=== PATIENT | male | born 1985 | race Caucasian/White ===

== ENCOUNTER 2020-09-19 11:31 | Outpatient (REF) | payer OTHER, SELFPAY | END 2020-09-19 11:32 | disposition home or self-care (01) | LOC: HO.LAB 11:31 | PROVIDERS: Visit Provider Internal Medicine | DX: Z20.828 Contact with and (suspected) exposure to other viral communicable diseases (principal) | CPT/HCPCS: C9803; U0003 ==

== ENCOUNTER 2024-03-31 13:14 | Outpatient (AMB) | payer OTHER, SELFPAY ==
--- NOTE | 2024-03-31 14:05 | MHC.OFFWIV ---
Intake Vital Signs 03/31/24 14:06 Height 5 ft 9 in Weight 191 lb BMI 28.2 BP 120/78 Blood Pressure Location Lt brachial Position Sitting Pulse 118 H Pulse Source Pulse Oximeter Temp 97.3 F Temp Source Temporal Artery Scan Pulse Oximetry (%) 98 Intake Visit Reasons: EP fever chills short of breath fatigue Intake Note: pt is here today for fever cgills short of breath started saturday Patient Tobacco Use Status: Current everyday Tobacco user Allergies No Known Allergies Allergy (Verified 03/31/24 15:08) sertraline Adverse Reaction (Unknown, Verified 03/31/24 15:08) sexual side effects Medication List - Last Reconciled 03/31/24 by Cyrus Roche MD azithromycin take 500 mg today (day 1), then 250 mg for 4 days (days 2-5) PO Do you need a note to return to daycare/school/sports/work: Yes HPI EP fever chills short of breath fatigue HPI Details 39-year-old male presents to the office for a sick visit. Patient reports he abruptly started having symptoms of headache, fever and chills in the past 48 hours. Lower back pain with nausea. Patient lives alone. He admits to consume large quantities of alcohol and smokes 2 packs a month. 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 No burning sensation on urination. PFSH Social History Patient Tobacco Use Status: Current everyday Tobacco user Physical Exam Vital Signs: Last Vital Signs Temp 97.3 F 03/31/24 14:06 Pulse 118 H 03/31/24 14:06 BP 120/78 03/31/24 14:06 Pulse Ox 98 03/31/24 14:06 BMI result Body Mass Index 28.2 Const General: cooperative and healthy appearing Nutritional Appearance: well nourished Orientation/consciousness: patient oriented x3 Limitations: no limitations HEENT Head: Yes normal to inspection Eyes General: appearance normal, both eyes and all related structures Neck Neck: Yes normal visual inspection Chest Chest palpation & inspection: normal palpation of entire chest wall Resp Effort & Inspection: normal respiratory effort Neuro General: patient oriented x3 Assessment & Plan Assessment & Plan (1) Febrile illness: Code(s): R50.9 - Fever, unspecified Plan: Blood work has been drawn. Will call with the results. Viral swab has been drawn will call with results. Chest x-ray images were reviewed by me. No infiltrate seen. Antibiotics called in. Orders: Orders XR chest 2V Today R05.9 - Cough, unspecified Basic Metabolic Panel Today K75.9 - Inflammatory liver disease, unspecified Liver Panel Today K75.9 - Inflammatory liver disease, unspecified Erythrocyte Sedimentation Rate Today K75.9 - Inflammatory liver disease, unspecified Complete Blood Count no Diff Today K75.9 - Inflammatory liver disease, unspecified Thyroid Stimulating Hormone Today K75.9 - Inflammatory liver disease, unspecified Medications: New azithromycin take 500 mg today (day 1), then 250 mg for 4 days (days 2-5) PO 6 tabs 0RF Coding Level of Care Code New Pt Level 4 (71758) Diagnoses Febrile illness R50.9
[2024-03-31 14:06] VITALS: BP 120/78; PULSE 118; TEMP 36.3; O2SAT 98; BMI 28.2
== END 2024-03-31 15:22 | disposition home or self-care (01) ==
PROVIDERS: Visit Provider Internal Medicine
DX: R50.9 Fever, unspecified (principal)
CPT/HCPCS: 99204

== ENCOUNTER 2024-03-31 14:42 | Outpatient (REF) | payer OTHER, SELFPAY ==
--- NOTE | ~2024-03-31 | XR_ITS ---
EXAMINATION: XR CHEST CLINICAL INFORMATION: Cough. Unspecified COMPARISON: None available. TECHNIQUE: 2 views of the chest were obtained. FINDINGS: Lungs clear. No pleural effusions. Heart and pulmonary vessels are normal. XR/XR chest 2V IMPRESSION: Unremarkable examination.
[2024-03-31 16:07] LABS: Hematocrit 50.8 % (42.0-52.0); Hemoglobin 17.5 g/dl (14.0-18.0); Mean Corpuscular HGB Conc 34.4 g/dl (31.0-36.0); Mean Corpuscular Hemoglobin 34.3 pg (27.0-33.0); Mean Corpuscular Volume 99.6 fL (80.0-98.0); Mean Platelet Volume 9.6 fL (9.4-12.4); Platelet Count 184 X10*3/uL (160-400); Red Cell Distribution Width 13.3 % (11.0-16.0); White Blood Count 8.6 X10*3/uL (4.8-10.8)
[2024-03-31 16:36] LABS: Alanine Aminotransferase 107 U/L (0-40); Albumin Level 4.3 g/dL (3.5-5.0); Alkaline Phosphatase 90 U/L (39-117); Anion Gap 15 (12-20); Aspartate Amino Transferase 81 U/L (5-37); Bilirubin Direct 0.4 mg/dL (0.0-0.5); Bilirubin Total 0.9 mg/dL (0.0-1.0); Blood Urea Nitrogen 17 mg/dL (9-16); Calcium 9.9 mg/dL (8.4-10.2); Carbon Dioxide 25 mmol/L (22-29); Chloride 100 mmol/L (96-108); Estimated Glomerular Filt Rate > 60; Glucose Random 117 mg/dL (60-115); Potassium 4.6 mmol/L (3.3-5.1); Sodium 135 mmol/L (135-145); Total Protein 8.6 g/dL (6.5-8.0)
[2024-03-31 16:41] LABS: Influenza A PCR NEGATIVE (Negative); Influenza B PCR NEGATIVE (Negative); Resp Syncy Virus RNA Qual PCR NEGATIVE (Negative); SARS COV2 PCR INHOUSE NEGATIVE (Negative)
[2024-03-31 16:41] LABS: Thyroid Stimulating Hormone 2.19 uIU/mL (0.32-4.0)
[2024-03-31 16:53] LABS: Erythrocyte Sedimentation Rate 47 MM/HR (0-15)
== END 2024-03-31 14:43 | disposition home or self-care (01) ==
LOC: HO.HMGCX 14:42
PROVIDERS: Visit Provider Internal Medicine
DX: R05.9 Cough, unspecified (principal); K75.9 Inflammatory liver disease, unspecified; R43.9 Unspecified disturbances of smell and taste
CPT/HCPCS: 0241U; 36415; 71046; 80048; 80076; 84443; 85027; 85652

== ENCOUNTER 2024-04-01 03:57 | Emergency (ER) | payer OTHER, SELFPAY ==
[2024-04-01] VITALS (9 sets, daily range): BP systolic 113–148; BP diastolic 79–92; PULSE 86–145; RESP 20–25; TEMP 36.8–39.5; O2SAT 96–97; BMI 28.1
--- NOTE | 2024-04-01 | ECG_ITS ---
Test Reason : TACHY Blood Pressure : / mmHG Vent. Rate : 143 BPM Atrial Rate : 143 BPM P-R Int : 122 ms QRS Dur : 088 ms QT Int : 282 ms P-R-T Axes : 069 137 052 degrees QTc Int : 435 ms Sinus tachycardia Right axis deviation Abnormal ECG When compared with ECG of 14-FEB-2012 07:04, T inversion not seen in lead 3. Referred By: Generic ED Physician Electronically Signed By:MADELEINE SETH
--- NOTE | 2024-04-01 04:12 | PC.NURSE ---
pt from home, a&ox4, respirations even and unlabored. pt reporting high fever, nausea,vomiting and diarrhea since saturday. denies any sick contacts at this time. when pt changing over, pt noted to have red, round spot on the left sided abdomen, pt unsure if bit by a bug. upon arrival pt tachy in 140s. 18G placed in left ac, labs obtained, pt medicated per jan.
[2024-04-01] MEDS: Acetaminophen 325 MG TABLET 650 MG PO (04:21)
[2024-04-01] MEDS: Ibuprofen 600 MG TABLET PO (04:21)
[2024-04-01 04:22] LABS: Basophils Absolute Auto 0.1 X10*3/uL (0.0-0.2); Basophils Percent Auto 0.6 % (0-2); Eosinophils Percent Auto 0.2 % (0-4); Hemoglobin 16.4 g/dl (14.0-18.0); Imm Gran Abs Auto 0.04 X10*3/uL (0.00-0.03); Imm Gran Pct Auto 0.5 % (0.0-0.4); Lymphocytes Absolute Auto 0.8 X10*3/uL (1.2-4.9); Lymphocytes Percent Auto 9.3 % (20-40); MANUAL DIFF FLAG NO; Mean Corpuscular HGB Conc 34.9 g/dl (31.0-36.0); Mean Corpuscular Hemoglobin 34.2 pg (27.0-33.0); Mean Corpuscular Volume 98.1 fL (80.0-98.0); Mean Platelet Volume 9.1 fL (9.4-12.4); Monocytes Absolute Auto 1.1 X10*3/uL (0.1-1.2); Neutrophils Absolute Auto 6.2 x10*3/uL (2.0-8.3); Neutrophils Percent Auto 76.4 % (45-73); Platelet Count 181 X10*3/uL (160-400); Red Blood Count 4.79 X10*6/uL (4.60-5.80); Red Cell Distribution Width 13.2 % (11.0-16.0); White Blood Count 8.2 X10*3/uL (4.8-10.8)
[2024-04-01] MEDS: Doxycycline Monohydrate 100 MG CAPSULE 200 MG PO (04:27)
[2024-04-01] MEDS: cefTRIAXone sodium 1 GM in 0.9 % Sodium Chloride 50 ML IV ×2 (04:27→05:37)
[2024-04-01] MEDS: 0.9 % Sodium Chloride 1,000 ML 999 ML IV (04:30)
[2024-04-01 04:35] LABS: Alanine Aminotransferase 105 U/L (0-40); Albumin Level 4.1 g/dL (3.5-5.0); Alkaline Phosphatase 90 U/L (39-117); Anion Gap 16 (12-20); Aspartate Amino Transferase 79 U/L (5-37); Bilirubin Total 0.8 mg/dL (0.0-1.0); Blood Urea Nitrogen 16 mg/dL (9-16); Calcium 9.3 mg/dL (8.4-10.2); Carbon Dioxide 23 mmol/L (22-29); Chloride 100 mmol/L (96-108); Creatinine Clr Calc Pharmacy 83.9; Estimated Glomerular Filt Rate > 60; Glucose Random 120 mg/dL (60-115); Potassium 3.8 mmol/L (3.3-5.1); Sodium 135 mmol/L (135-145); Total Protein 8.1 g/dL (6.5-8.0)
[2024-04-01 04:36] LABS: Lactic Acid 1.2 mmol/L (0.5-2.0)
[2024-04-01 04:42] LABS: Troponin-I High Sensitivity 8.3 ng/L (<3.5-35.0)
--- NOTE | 2024-04-01 04:59 | ED_ITS ---
HPI - Fever General Chief Complaint: Fever Stated Complaint: Fever Time Seen by Provider: 04/01/24 04:11 Source: patient Mode of arrival: ambulatory Limitations: no limitations History of Present Illness ED Provider: georges RANDHAWA Narrative: Patient otherwise healthy been having fever body aches joint pain for last 4 days slightly nauseated no cough no shortness a breath patient was seen by PCP and had the blood workup done earlier which showed elevated sed rate with normal WBC count. Patient denied any tick bite Related Data Previous Rx's ?Medication ?Instructions ?Recorded azithromycin 250 mg tablet See Rx Instructions PO .COMPLEX #6 03/31/24 tabs doxycycline hyclate 100 mg tablet 100 mg PO BID #42 tabs 04/01/24 ibuprofen 600 mg tablet 600 mg PO Q6H PRN fever or pain 04/01/24 #30 tabs Allergies Allergy/AdvReac Type Severity Reaction Status Date / Time No Known Allergies Allergy Verified 04/01/24 04:08 sertraline AdvReac Unknown sexual Verified 03/31/24 15:08 side effects Review of Systems 2 Review of Systems: Yes all other systems are reviewed and are negative [facility] Social History Social History Patient Tobacco Use Status: Current everyday Tobacco user Smoked in Last 30 Days: No Use of substances other than those prescribed or required for medical reasons: No Advance Directives: No Advance Directives Information Provided: No Do you have a plan to hurt others: No Plan Physical Exam 2 Vital Signs: Vital Signs: Last Vital Signs Temp 99.5 F 04/01/24 06:34 Pulse 99 04/01/24 06:34 Resp 20 04/01/24 06:34 BP 120/81 04/01/24 06:34 Pulse Ox 97 04/01/24 06:34 O2 Del Method Room Air 04/01/24 06:34 BMI result Body Mass Index 28.1 Appearance: Alert. Oriented X3. No acute distress. Eyes: No pallor or icterus ENT: Pharynx normal. Oral Mucosa moist Neck: Normal inspection. Neck supple. CVS: Normal heart rate and rhythm. Pulses normal. Respiratory: No respiratory distress. Equal air entry bilateral, no wheezing/rales/rhonchi Abdomen: Soft and nontender. Bowel sounds are present, no mass palpable, no CVA tenderness Skin: Skin warm and dry. Bull's eye rash on the left trunk area Extremities: No lower extremity edema. No calf tenderness Neuro: Oriented X 3. No motor deficit. Medications Administered Discontinued Medications Generic Name Dose Route Start Last Admin Trade Name Pratima PRN Reason Stop Dose Admin Acetaminophen 650 mg 04/01/24 04:13 04/01/24 04:21 Acetaminophen 325 Mg Tablet PO 04/01/24 04:14 650 mg ONCE ONE Administration Doxycycline Monohydrate 200 mg 04/01/24 04:13 04/01/24 04:27 Doxycycline Monohydrate 100 Mg Capsule PO 04/01/24 04:14 200 mg ONCE ONE Administration Ceftriaxone Sodium 1 gm/ 50 mls @ 100 mls/hr 04/01/24 04:13 04/01/24 04:57 Sodium Chloride IV 04/01/24 04:42 Infused ONCE ONE Infusion Sodium Chloride 1,000 mls @ 999 mls/hr 04/01/24 04:22 04/01/24 05:31 Ns IV 04/01/24 05:22 Infused .Q1H1M ONE Infusion Ceftriaxone Sodium 1 gm/ 50 mls @ 100 mls/hr 04/01/24 05:18 04/01/24 06:07 Sodium Chloride IV 04/01/24 05:47 Infused ONCE ONE Infusion Ibuprofen 600 mg 04/01/24 04:13 04/01/24 04:21 Ibuprofen 600 Mg Tablet PO 04/01/24 04:14 600 mg ONCE ONE Administration Medical Decision Making Medical Decision Making [facility] Narrative: Patient with fever with erythema marginatum rash suggestive of Lyme disease pending labs discharge patient home on doxycycline will do anaplasmosis panel also Differential Diagnosis Differential Diagnoses: The differential diagnosis associated with the presentation includes Fever/Lyme disease Lab Data [facility] Lab Attestation statement: I reviewed the patient's lab results. 04/01/24 04:12 04/01/24 04:12 Labs: Lab Results 04/01/24 04/01/24 04/01/24 Range/Units 04:12 04:32 05:14 WBC 8.2 (4.8-10.8) X10*3/uL RBC 4.79 (4.60-5.80) X10*6/uL Hgb 16.4 (14.0-18.0) g/dl Hct 47.0 (42.0-52.0) % MCV 98.1 H (80.0-98.0) fL MCH 34.2 H (27.0-33.0) pg MCHC 34.9 (31.0-36.0) g/dl RDW 13.2 (11.0-16.0) % Plt Count 181 (160-400) X10*3/uL MPV 9.1 L (9.4-12.4) fL Immature Gran % (Auto) 0.5 H (0.0-0.4) % Neut % (Auto) 76.4 H (45-73) % Lymph % (Auto) 9.3 L (20-40) % Fannin % (Auto) 13.0 H (2-11) % Eos % (Auto) 0.2 (0-4) % Baso % (Auto) 0.6 (0-2) % Lymph # (Auto) 0.8 L (1.2-4.9) X10*3/uL Fannin # (Auto) 1.1 (0.1-1.2) X10*3/uL Eos # (Auto) 0.0 (0.0-0.4) X10*3/uL Baso # (Auto) 0.1 (0.0-0.2) X10*3/uL Abs Immat Gran (auto) 0.04 H (0.00-0.03) X10*3/uL Absolute Neuts (auto) 6.2 (2.0-8.3) x10*3/uL Absolute Nucleated RBC 0.000 (0.0-0.012) X10*3/uL Nucleated RBC % (auto) 0.0 (0.0-0.2) /100WBC Hold Purple Top SEE NOTE Sodium 135 (135-145) mmol/L Potassium 3.8 (3.3-5.1) mmol/L Chloride 100 (96-108) mmol/L Carbon Dioxide 23 (22-29) mmol/L Anion Gap 16 (12-20) BUN 16 (9-16) mg/dL Creatinine 1.26 (0.5-1.4) mg/dL Estim Creat Clear Calc 83.9 Estimated GFR > 60 Random Glucose 120 H (60-115) mg/dL Lactic Acid 1.2 (0.5-2.0) mmol/L Calcium 9.3 D (8.4-10.2) mg/dL Total Bilirubin 0.8 (0.0-1.0) mg/dL AST 79 H (5-37) U/L ALT 105 H (0-40) U/L Alkaline Phosphatase 90 (39-117) U/L Troponin I High Sens 8.3 (<3.5-35.0) ng/L Total Protein 8.1 H (6.5-8.0) g/dL Albumin 4.1 (3.5-5.0) g/dL Influenza Type A (PCR) NEGATIVE (Negative) Influenza Type B (PCR) NEGATIVE (Negative) RSV RNA Qual (PCR) NEGATIVE (Negative) SARS-CoV-2 RNA (RT-PCR) NEGATIVE (Negative) S. pyogenes GrpA BERENICE Negative (Negative) Discharge Plan Discharge Clinical Impression: Acute Lyme disease Patient Disposition: Home, Self-Care Instructions: Lyme Disease (ED) Additional Instructions: Likely have Lyme disease as a cause of fever labs are pending Tylenol/Motrin for fever Drink plenty of fluids Doxycycline 1 twice daily for 3 weeks Follow with PCP for the lab results Prescriptions: New ibuprofen 600 mg tablet 600 mg PO Q6H PRN (Reason: fever or pain) Qty: 30 0RF doxycycline hyclate 100 mg tablet 100 mg PO BID Qty: 42 0RF No Action azithromycin 250 mg tablet See Rx Instructions PO .COMPLEX Qty: 6 0RF Rx Instructions: take 500 mg today (day 1), then 250 mg for 4 days (days 2-5) PO Print Language: Anguill[place]
[2024-04-01 05:30] LABS: IDNOW Serial# 08D9AD1C; Strep A Nucleic Acid Negative (Negative)
--- NOTE | 2024-04-01 05:46 | PC.NURSE ---
per pt initially meeting sepsis criteria, sepsis alert completed. per , sepsis alert not called.
[2024-04-01 05:58] LABS: Influenza A PCR NEGATIVE (Negative); Influenza B PCR NEGATIVE (Negative); Resp Syncy Virus RNA Qual PCR NEGATIVE (Negative); SARS COV2 PCR INHOUSE NEGATIVE (Negative)
[2024-04-03 17:53] LABS: Lyme Abs Screen <0.90 index
[2024-04-07 17:27] LABS: A. Phagocytophilum Ab IgG <1:64 (<1:64); A. Phagocytophilum Ab IgM <1:20 (<1:20); E. Chaffeensis Ab IgG <1:64 (<1:64); E. Chaffeensis Ab IgM <1:20 (<1:20)
== END 2024-04-01 07:58 | disposition home or self-care (01) ==
PROVIDERS: Emergency Provider Internal Medicine; PCP Nurse Practitioner Family
DX: A69.20 Lyme disease, unspecified (principal); R50.9 Fever, unspecified; F17.210 Nicotine dependence, cigarettes, uncomplicated; Z03.818 Encounter for observation for suspected exposure to other biological agents ruled out; Z87.891 Personal history of nicotine dependence
CPT/HCPCS: 0241U; 36415; 80053; 83605; 84484; 85025; 86617; 86618; 86666; 87040; 87651; 93005; 96365; 96366; 99284; 99285; J0696

== ENCOUNTER → 2024-04-01 04:08 | Outpatient (BNV) | payer OTHER, SELFPAY | PROVIDERS: Emergency Provider Internal Medicine; PCP Nurse Practitioner Family; Visit Provider Internal Medicine | DX: R00.0 Tachycardia, unspecified (principal); R94.31 Abnormal electrocardiogram [ECG] [EKG] | CPT/HCPCS: 93010 ==

== ENCOUNTER 2024-04-07 12:33 | Outpatient (AMB) | payer OTHER, SELFPAY ==
--- NOTE | 2024-04-07 12:43 | MHC.PC.OV ---
Vital Signs 04/07/24 12:50 Height 5 ft 9 in Weight 189 lb 6 oz BMI 28.0 BP 112/72 Blood Pressure Location Rt brachial Position Sitting Respiration 16 Pulse 80 Pulse Source Pulse Oximeter Temp 97.6 F Temp Source Oral Pulse Oximetry (%) 96 Oxygen Delivery Method Room Air Intake Visit Reasons: f/u labs and testing done at [facility] Walk-in Intake Note: Follow up, discuss labs; high liver enzymes. Allergies sertraline Adverse Reaction (Unknown, Verified 04/07/24 13:14) sexual side effects Medication List - Last Reconciled 04/07/24 by Rupinder Ochoa, DEMAND GENERATION MANAGER- doxycycline hyclate 100 mg PO BID ibuprofen 600 mg PO Q6H PRN Tobacco use date assessed: 04/07/24 Dental Screening Dental Screen Date: 04/07/24 Did you have a dental visit in the last 12 months?: No Did you have a dental problem in the last 6 months where you did not have access to dental care?: Yes Was dental information given to patient?: Yes HPI HPI Comments History of Present Illness Details 39-year-old male with major depressive disorder, EtOH dependence here today for a hospital discharge follow-up. He went to urgent Care 03/31/2024. These notes were reviewed. General flu-like symptoms. He was given azithromycin. However the following day his condition worsened. He went to the emergency room 04/01/2024. This workup was reviewed. He was noted to have a bull's-eye rash of the left side of his abdomen. While he denies a known tick bite does admit to tick bites in the past. His lab work remains pending at this time. However his CBC was abnormal as well as his LFTs which were elevated. He has been taking the doxycycline twice per day as directed. He is feeling much better. No more fever or joint aches. The rash to his abdomen has improved. He tells me today that he has been drinking for several years. He was sober for 2 years however felt isolated and went back to drinking. His last drink was 10 days ago as he has been too sick to drink. He is highly motivated to stop drinking in his interested in a referral to addicted medicine which will be placed today. He is worried about his liver. We will screen for hepatitis as well as HIV today and check an ultrasound of his liver to include elastography. States he has a family history of colon cancer with his dad dying at age 62 of colorectal cancer. It was recommended to him previously that he have an early screening colon. I have placed a referral for him today. In regards to his major depressive disorder he states that he was on medications in the past. These made him feel out of touch with reality. No interested in restarting any medications at this time. 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 1. Little interest or pleasure in doing things: not at all 2. Feeling down, depressed, or hopeless: not at all 3. Trouble falling or staying asleep, or sleeping too much: nearly every day 4. Feeling tired or having little energy: nearly every day 5. Poor appetite or overeating: more than half the days 6. Feeling bad about yourself - or that you are a failure or have let yourself or your family down: not at all 7. Trouble concentrating on things, such as reading the newspaper or watching television: more than half the days 8. Moving or speaking so slowly that other people could have noticed. Or the opposite - being so fidgety or restless that you have been moving around a lot more than usual: not at all 9. Thoughts that you would be better off or of hurting yourself in some way: not at all Total score: 10 Depression Screening Interpretation: Positive Depression Screening Follow-up: Existing condition Depression Screening Done: Yes 96103 - PHQ-9 Billing: Yes Source: Developed by Drs. Sarthak Ceballos, Kiesha Singh, Bennett Armando and colleagues, with an educational roberto from [employer]. Thrive Questionnaire Date Thrive assessed: 04/07/24 I am a: Patient What is your living situation today?: I have a steady place to live Within the past 12 months, did the food you bought not last and you didn't have the money to get more?: Never true Within the past 12 months, did you worry whether your food would run out before you got money to buy more?: Never true Do you have trouble paying for medicines?: No Do you have trouble getting transportation to medical appointments?: No Do you have trouble paying your heating and electricity bill?: No Do you have trouble taking care of your child, family member or friend?: No Do you have trouble with day-to-day activities such as bathing, preparing meals, shopping, managing finances, etc.?: No Are you currently unemployed and looking for a job?: No Are you interested in more education?: No Please select the resources that you would like help with: None Currently or been in a relationship where the following occur: no concerns reported THRIVE Score: 0 AUDIT C Alcohol Use Questionnaire (AUDIT-C) 1. How often do you have a drink containing alcohol?: 4 or more times a week 2. How many drinks containing alcohol do you have on a typical day when you are drinking?: 10 or more 3. How often do you have six or more drinks on one occasion?: Daily or almost daily Total Score: 12 Score Reviewed/Action Taken: Yes RUIZ-7 AMB Questionnaire RUIZ-7 Date RUIZ - 7 assessed: 04/07/24 Feeling nervous, anxious, or on edge: 1 = Several days Not being able to stop or control worryin = Not at all Worrying too much about different things: 0 = Not at all Trouble relaxin = Not at all Being so restless that it is hard to sit still: 0 = Not at all Becoming easily annoyed or irritable: 2 = More than half the days Feeling afraid as if something awful might happen: 0 = Not at all Total RUIZ-7 score (0-4 normal; 5-9 mild; 10-14 moderate; 15-21 severe): 3 Source: Developed by Drs. Sarthak Ceballos, Bennett Sosa and colleagues, with an educational roberto from [employer]. RUIZ-7 Assessment Billing RUIZ-7 Assessment Tool: RUIZ-7 Assessment 38260 Review of Systems Const All systems reviewed & are unremarkable except as noted in HPI and below Physical exam (Primary Care) Vital Signs: Last Vital Signs Temp 97.6 F 04/07/24 12:50 Pulse 80 04/07/24 12:50 Resp 16 04/07/24 12:50 BP 112/72 04/07/24 12:50 Pulse Ox 96 04/07/24 12:50 Oxygen Delivery Method Room Air 04/07/24 12:50 BMI result Body Mass Index 28.0 BMI Assessment/Plan discussion: High Tobacco/Smoking Status: Tobacco use Status Tobacco use date assessed 04/07/24 04/07/24 12:54 Patient Tobacco Use Status Current everyday Tobacco ( 04/07/24 12:54 Stopped the past two weeks due to illness) e-Cigarette/Vaping Use Never Used 04/07/24 12:54 PHQ-9: PHQ-9 Score PHQ-9: Total score 10 04/07/24 12:54 Depression Screening Interpretation: Positive Depression Screening Follow-up: Existing condition Thrive Assessment: Date of Thrive Assessment Date Thrive assessed 04/07/24 04/07/24 12:54 Currently or been in a relationship where the following occur: no concerns reported Const Other: awake alert, NAD scleras nonicteric bilat MMM RRR LS CTAB Abd soft, nontender, hepatomegaly, liver edge palpable Faint rash to left lower quad of abd No edema BLE, skin intact Pleasant and cooperative Assessment and Plan Assessment & Plan (1) Hospital discharge follow-up: Code(s): Z09 - Encounter for follow-up examination after completed treatment for conditions other than malignant neoplasm (2) EtOH dependence: Code(s): F10.20 - Alcohol dependence, uncomplicated Qualifiers: Substance use status: uncomplicated Qualified Code(s): F10.20 - Alcohol dependence, uncomplicated (3) Family hx of colon cancer: Code(s): Z80.0 - Family history of malignant neoplasm of digestive organs (4) MDD (major depressive disorder), recurrent episode: Code(s): F33.9 - Major depressive disorder, recurrent, unspecified Qualifiers: Major depression episode severity: moderate Qualified Code(s): F33.1 - Major depressive disorder, recurrent, moderate (5) Suspected Lyme disease: Code(s): R68.89 - Other general symptoms and signs Plan: This note is constructed using voice recognition software. While every effort has been made to ensure accuracy in straight tooth gear generator operator, still errors may have been included Sometimes, these errors may affect the content or meaning of the given sentence . Total time spent caring for the patient today was 60 minutes. This includes time spent before the visit reviewing the chart, time spent during the visit, and time spent after the visit on documentation Orders: Orders Hepatitis A,B,C Profile Today F10.20 - Alcohol dependence, uncomplicated US abdomen robertson w elastography Today F10.20 - Alcohol dependence, uncomplicated Ferritin Today F10.20 - Alcohol dependence, uncomplicated HIV Ab/Ag Today F10.20 - Alcohol dependence, uncomplicated Referrals Addiction Medicine Referral F10.20 - Alcohol dependence, uncomplicated Gastroenterology Referral Z80.0 - Family history of malignant neoplasm of digestive organs Patient Instructions: Plan: Check hepatitis and HIV labs today. Referred to addiction Medicine at [facility] to help with ETOH dependence. Continue doxycycline as directed for suspected Lyme disease. Your labs remain pending at this time. Check ultrasound with elastography given ETOH dependence and elevated liver enzymes. Refer to GI for consultation given family history of colorectal cancer. Return to office as scheduled 04/17/2024 or sooner as needed. Coding Level of Care Code Est Pt Level 5 (52010) Diagnoses Hospital discharge follow-up Z09 Uncomplicated alcohol dependence F10.20 Substance use status: uncomplicated Family hx of colon cancer Z80.0 Moderate episode of recurrent major depressive disorder F33.1 Major depression episode severity: moderate Suspected Lyme disease R68.89 Additional Codes RUIZ-7 Assessment Billing - RUIZ-7 Assessment Tool: RUIZ-7 Assessment [id number] ([id number])
[2024-04-07 12:50] VITALS: BP 112/72; PULSE 80; RESP 16; TEMP 36.4; O2SAT 96; BMI 28.0
== END 2024-04-07 13:45 | disposition home or self-care (01) ==
PROVIDERS: PCP Nurse Practitioner Family; Visit Provider Nurse Practitioner Family
DX: R68.89 Other general symptoms and signs (principal); F10.20 Alcohol dependence, uncomplicated; F33.1 Major depressive disorder, recurrent, moderate; Z09 Encounter for follow-up examination after completed treatment for conditions other than malignant neoplasm; Z80.0 Family history of malignant neoplasm of digestive organs
CPT/HCPCS: 99215

== ENCOUNTER 2024-04-07 13:37 | Outpatient (REF) | payer OTHER, SELFPAY ==
[2024-04-07 18:37] LABS: Ferritin 1295 ng/mL (20-250)
[2024-04-08 03:33] LABS: HBS Num1 148.99 mIU/mL (0-7.99); HBc Num1 0.19 S/CO (0.00-0.79); HBsAGNum1 0.27 S/CO (0.00-0.99); HIV AB/AG Nonreactive (Nonreactive); HIV Num 1 0.07 S/CO (0.00-0.99); Hepatitis B Core Antibody Nonreactive (Nonreactive); Hepatitis B Surface Antigen Negative (Negative); ~HepC Num1 0.12 S/CO (0.00-0.79); ~Hepatitis A Antibody IgM Nonreactive (Nonreactive); ~Hepatitis B Surface Antibody REACTIVE (Nonreactive); ~Hepatitis C Antibody Nonreactive (Nonreactive)
== END 2024-04-07 13:38 | disposition home or self-care (01) ==
LOC: HO.WFDLDS 13:37
PROVIDERS: Visit Provider Nurse Practitioner Family
DX: F10.20 Alcohol dependence, uncomplicated (principal)
CPT/HCPCS: 36415; 82728; 86704; 86706; 86709; 86803; 87340; 87389

== ENCOUNTER 2024-04-10 12:00 | Emergency (ER) | payer OTHER, SELFPAY ==
[2024-04-10 12:55] VITALS: BP 124/93; PULSE 86; RESP 16; TEMP 36.4; O2SAT 96; BMI 27.9
--- NOTE | 2024-04-10 12:55 | ED.GENADULT ---
HPI - General Adult General Chief complaint: Neuro Symptoms/Deficit Stated complaint: facial numbness Time Seen by Provider: 04/10/24 13:20 Source: patient Mode of arrival: ambulatory Limitations: no limitations History of Present Illness HPI narrative: Patient is a 39-year-old male who presents to the emergency department for evaluation. He reports 2 days ago he began feeling numbness to the right side of his face. Yesterday he noticed weakness to the right side of his face. Upon awakening today the weakness was much more prominent, reports an asymmetrical smile. He called his primary care doctor's office who advised him to come to the emergency department for evaluation. He denies any headache, dizziness, ear pain, tinnitus, lightheadedness, neck pain, chest pain, shortness of breath, nausea, vomiting, abdominal pain, numbness or tingling of the extremities, extremities are without weakness. He states that 1 week ago he presented to the emergency department for evaluation he was experiencing high fevers, had a rash to his abdomen and states that they were concern for Lyme disease, testing was sent off and he was started on a 21 day course of doxycycline on 04/01/2024, and he reports compliance with the doxycycline. Related Data Previous Rx's ?Medication ?Instructions ?Recorded doxycycline hyclate 100 mg tablet 100 mg PO BID #42 tabs 04/01/24 ibuprofen 600 mg tablet 600 mg PO Q6H PRN fever or pain 04/01/24 #30 tabs carboxymethylcellulose sodium 1 % 1 drp ophthalmic-Right BID #15 mL 04/10/24 eye drops (Artificial Tears (carboxymethylcellulose)) Allergies Allergy/AdvReac Type Severity Reaction Status Date / Time sertraline AdvReac Unknown sexual Verified 04/10/24 12:56 side effects Review of Systems Review of Systems: Yes all other systems are reviewed and are negative PMFSH Past Medical History Attestation statement: The following information was validated with the patient. Source: old records reviewed Family History Family History (Updated 04/07/24 @ 12:48 by Linda Crews CMA) Father Colon cancer Depression Brother Depression Other FH: mental illness Substance abuse Social History Social History (Updated 04/07/24 @ 12:47 by Linda Crews CMA) Housing: Apartment Patient Tobacco Use Status: Current everyday Tobacco user (Stopped the past two weeks due to illness) Years Smoked: 20 e-Cigarette/Vaping Use: Never Used Second Hand Smoke Exposure: No Substance Use Type: Crack/Cocaine Advance Directives: Yes Advance Directives Information Provided: Yes Advance Directives on File: No service: No Current occupational status: employed 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 No acute distress.?Normal affect. Eyes: Pupils equal, round and reactive to light.? EOMI. ENT: Pharynx normal.??TM normal bilaterally. External canal within normal range bilaterally. Neck: Normal inspection.? Neck supple.?? CVS: Heart sounds normal. Normal heart rate and rhythm.? Pulses normal.?? Respiratory: No respiratory distress.? Lung sounds clear to auscultation bilaterally?? Abdomen: Soft and non-tender. Normoactive bowel sounds. Skin: Skin warm and dry.? Normal skin color.? Extremities: No lower extremity edema.? Neuro: No focal neurological deficit observed, CN II-XII intact EXCEPT right CN VII palsy of the upper or lower portion of the face with obvious eyebrow sagging inability to close the eye disappearance of the nasolabial fold and drooping of the right corner of the mouth. normal sensory observed, normal coordination observed. Level of consciousness: Appropriate for age. Motor strength: Proximal right upper extremity 5 /5, distal right upper extremity 5 /5, proximal left upper extremity 5 /5, distal left upper extremity 5 /5, right lower extremity 5 /5, left lower extremity 5 /5.?Speech: Normal, Gait: Normal, Lcqkts-hv-ancz test: Normal, Owzm-yb-fysy test: Normal. Medical Decision Making Medical Decision Making [facility] Narrative: 04/01/2024 was evaluated in this emergency department for an erythematous rash to the left abdomen concerning for acute Lyme disease and was initiated on doxycycline 100 mg twice daily for a total of 21 days. He has been compliant with this regimen. 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 He has no additional focal neurological deficits on examination, I do not suspect ICH/CVA, would defer head CT at this time this this is an acute onset isolated lateral facial weakness with typical features of Adams's palsy. Spoke with ED attending Dr. Moore who agrees, no indication for head CT at this time. Recommend patient continue the course of doxycycline as previously prescribed. At this time no signs of systemic illness fevers headache neck stiffness. Suspect less likely that this is secondary to herpes zoster dry, would defer treatment with valacyclovir, no evidence of otitis media or mastoiditis, not consistent with Guillain-Jefferson syndrome. Discussed ophthalmic precautions including artificial tears, taping of the eyelid at night or use of an eye patch to prevent corneal abrasion. Reviewed worrisome signs and symptoms that would warrant re-evaluation in the emergency department. All questions answered. Stable for discharge. Differential Diagnosis Differential Diagnoses: The differential diagnosis associated with the presentation includes (See narrative above) Admission/Observation Consideration of admission/observation: Escalation of care including admission/observation considered (See narrative above) External Record Review External record reviewed: Outpatient record Tests considered The following testing was considered but not selected: CT head considered but deferred, see narrative above Prescription Management I considered prescription management with: Antiviral (See narrative above) and Antibiotic (See narrative above) Discharge Plan Discharge Clinical Impression: Adams palsy Patient Disposition: Home, Self-Care Instructions: Adams Palsy (ED) Additional Instructions: As discussed, your presentation today is consistent with Adams's palsy likely due to Lyme disease. It is sometimes found that people can develop Adams's palsy on the opposite side of the face as well when associated with Lyme dizziness. Continue taking the doxycycline as previously prescribed. On doxycycline, do not take pills immediately before going to bed and swallow pills with plenty of water. Avoid direct sunlight, iron, antacids, and Pepto Bismol. Call your provider if you develop new ringing in your ears, new problems hearing, dizziness, difficulty swallowing, rash, abdominal discomfort, nausea, or diarrhea.? Use an eye patch at night to prevent scratching/abrasion to the surface of the eye. Use eyedrops as prescribed. Return back to emergency department any new or worsening symptoms or concerns. Follow-up with your primary care provider. Prescriptions: New Artificial Tears (cmc) 1 % drops 1 drp ophthalmic-Right BID Qty: 15 0RF No Action ibuprofen 600 mg tablet 600 mg PO Q6H PRN (Reason: fever or pain) Qty: 30 0RF doxycycline hyclate 100 mg tablet 100 mg PO BID Qty: 42 0RF Referrals: Rupinder Ochoa FNP-BC [Primary Care Provider] - Interventions: ED Discharge Assessment Last Done: 04/10/24 13:36 Discharge Date/Time: 04/10/24 13:37 Print Language: [place]
[2024-04-10 13:36] VITALS: BP 124/93; PULSE 86; RESP 16; TEMP 36.4; O2SAT 96
== END 2024-04-10 13:37 | disposition home or self-care (01) ==
PROVIDERS: Emergency Provider Emergency Medicine Emergency Medical Services; PCP Nurse Practitioner Family
DX: G51.0 Bell's palsy (principal); R20.0 Anesthesia of skin
CPT/HCPCS: 99282; 99283

== ENCOUNTER 2024-04-16 07:46 | Outpatient (AMB) | payer OTHER, SELFPAY ==
--- NOTE | 2024-04-16 08:01 | MHC.PC.OV ---
Vital Signs 04/16/24 08:07 Height 5 ft 9 in Weight 189 lb 2 oz BMI 27.9 BP 138/82 Blood Pressure Location Lt brachial Position Sitting Respiration 15 Pulse 77 Pulse Source Pulse Oximeter Temp 98.5 F Temp Source Oral Pulse Oximetry (%) 98 Oxygen Delivery Method Room Air Intake Visit Reasons: Re-Est care Intake Note: Pt states he developed bells palsy about 9 days ago. Allergies sertraline Adverse Reaction (Unknown, Verified 04/16/24 08:02) sexual side effects Medication List - Last Reconciled 04/16/24 by Rupinder Ochoa, [employer] carboxymethylcellulose sodium 1% (Artificial Tears (carboxymethylcellulose)) 1 drp ophthalmic-Right BID doxycycline hyclate 100 mg PO BID ibuprofen 600 mg PO Q6H PRN prednisone 20 mg PO DAILY valacyclovir 1,000 mg PO DAILY Tobacco use date assessed: 04/16/24 Dental Screening Dental Screen Date: 04/16/24 Did you have a dental visit in the last 12 months?: No Did you have a dental problem in the last 6 months where you did not have access to dental care?: No HPI HPI Comments History of Present Illness Details 39-year-old male with major depressive disorder, EtOH dependence, [place] Palsy Here today for HDF Went to [facility] ED for facial droop. Dx w/ [place] Palsy, affecting the right side. Work up reviewed. Was d/c home w/ eye drops only He then went to to get prednisone This was on Saturday States he was RX 60mg x 5 days along w/ Valacyclovir Performing eye protection to right eye and using eye drops twice per day He continues to have symptoms with very minimal improvement. Reviewed with him the labs done at the last office visit: ferritin high 1295, neg hep and hiv Has abdominal ultrasound scheduled today. GI referrals already in place though it is for a screening colonoscopy he may require this for abnormal liver findings in the setting of ETOH abuse. Plan: Complete Prednisone today. Start Medrol dose pack tomorrow Complete Anitviral tx and Doxy as prescribed Make appt w/ Troye Doctor -- protect your eye as discussed Perform facial exercises to help your muscle tone RTO in 2-3 weeks to FU, sooner as needed. 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 How often do you have a drink containing alcohol?: 4 or more times a week 2. How many drinks containing alcohol do you have on a typical day when you are drinking?: 7 to 9 3. How often do you have six or more drinks on one occasion?: Daily or almost daily Total Score: 11 RUIZ-7 AMB Questionnaire RUIZ-7 Date RUIZ - 7 assessed: 04/07/24 Source: Developed by Drs. Sarthak Ceballos, Kiesha Singh, Bennett Armando and colleagues, with an educational roberto from [employer]. Review of Systems Const All systems reviewed & are unremarkable except as noted in HPI and below Physical exam (Primary Care) Vital Signs: Last Vital Signs Temp 98.5 F 04/16/24 08:07 Pulse 77 04/16/24 08:07 Resp 15 04/16/24 08:07 BP 138/82 04/16/24 08:07 Pulse Ox 98 04/16/24 08:07 Oxygen Delivery Method Room Air 04/16/24 08:07 BMI result Body Mass Index 27.9 Tobacco/Smoking Status: Tobacco use Status Tobacco use date assessed 04/16/24 04/16/24 08:12 Patient Tobacco Use Status Former Tobacco user (Stopped 04/16/24 08:12 the past two weeks due to illness) e-Cigarette/Vaping Use Never Used 04/16/24 08:12 Thrive Assessment: Date of Thrive Assessment Date Thrive assessed 04/07/24 04/16/24 08:12 Const Other: awake alert, NAD 7 cranial nerve palsy affecting R side scleras nonicteric bilat, no obvious corneal abrasion, no drainage MMM RRR LS CTAB Abd soft, nontender, hepatomegaly, liver edge palpable Faint rash to left lower quad of abd No edema BLE, skin intact Pleasant and cooperative Assessment and Plan Assessment & Plan (1) Hospital discharge follow-up: Code(s): Z09 - Encounter for follow-up examination after completed treatment for conditions other than malignant neoplasm (2) Adams palsy: Code(s): G51.0 - Adams's palsy (3) Elevated ferritin: Code(s): R79.89 - Other specified abnormal findings of blood chemistry Plan This note is constructed using voice recognition software. While every effort has been made to ensure accuracy in department operations manager, still errors may have been included Sometimes, these errors may affect the content or meaning of the given sentence . Total time spent caring for the patient today was 50 minutes. This includes time spent before the visit reviewing the chart, time spent during the visit, and time spent after the visit on documentation Orders: Referrals Ophthalmology Referral G51.0 - Adams's palsy Medications: New methylprednisolone (Medrol (Aaron)) PO PER PKG DIR 21 ea 0RF Patient Instructions: Plan: Complete Prednisone today. Start Medrol dose pack tomorrow Complete Anitviral tx and Doxy as prescribed Make appt w/ Jose Doctor -- protect your eye as discussed Perform facial exercises to help your muscle tone RTO in 2-3 weeks to FU, sooner as needed. Coding Level of Care Code Est Pt Level 5 (92434) Diagnoses Hospital discharge follow-up Z09 Adams palsy G51.0 Elevated ferritin R79.89
[2024-04-16 08:07] VITALS: BP 138/82; PULSE 77; RESP 15; TEMP 36.9; O2SAT 98; BMI 27.9
== END 2024-04-16 08:59 | disposition home or self-care (01) ==
PROVIDERS: PCP Nurse Practitioner Family; Visit Provider Nurse Practitioner Family
DX: G51.0 Bell's palsy (principal); Z09 Encounter for follow-up examination after completed treatment for conditions other than malignant neoplasm; R79.89 Other specified abnormal findings of blood chemistry
CPT/HCPCS: 99215

== ENCOUNTER 2024-04-16 09:32 | Outpatient (REF) | payer OTHER, SELFPAY ==
--- NOTE | ~2024-04-16 | US_ITS ---
EXAMINATION: US ABDOMEN LIMITED WITH LIVER ELASTOGRAPHY CLINICAL INFORMATION: Alcohol dependence. COMPARISON: None available. TECHNIQUE: Real-time imaging of the abdominal viscera. Noninvasive ultrasound liver fibrosis assessment is performed using Angela ElastPQ point quantification shear wave elastography (2D-SWE) with a C5-2 MHz transducer. Multiple elastography samples are obtained. FINDINGS: PANCREAS: Normal. The visualized pancreatic head and body are normal in appearance. The remainder of the pancreas is obscured from visualization by the overlying bowel gas. LIVER: The liver is mildly enlarged and shows normal contour and increased echogenicity, with pericholecystic sparing. No focal lesion or intrahepatic biliary duct dilatation. The right lobe measures 17.3 cm in length. The left lobe measures 11.6 cm in length. Portal flow is towards the liver (hepatopetal). Shear wave liver elastography median stiffness is 2.09 m/s (reference: normal median stiffness is 1.3 m/s or less). IQR/median stiffness to assess sampling precision is 0.08 (reference: good quality data set is IQR/median stiffness of 0.15 or less). GALLBLADDER: Normal. The gallbladder is physiologically distended without evidence of stones, sludge, polyps, wall thickening or pericholecystic fluid. COMMON BILE DUCT: Normal in caliber measuring 0.4 cm in diameter. RIGHT KIDNEY: Normal. No hydronephrosis. No renal calculi or focal parenchymal lesions. The kidney measures 10.7 cm in maximum dimension. FREE FLUID: None. US/US abdomen robertson w elastography IMPRESSION: 1. There is generalized increase in hepatic echotexture, consistent with fatty infiltration or hepatocellular disease. Please correlate clinically. Characteristic pericholecystic sparing favors fatty infiltration. No focal hepatic mass or intrahepatic biliary dilatation is seen. 2. There is mild hepatomegaly. 3. Liver elastography: Measurements are suggestive of compensated advanced chronic liver disease but need further test for confirmation. REFERENCE: Society of Radiologists in Ultrasound Liver Stiffness Thresholds (2020): LIVER STIFFNESS THRESHOLDS: *Liver Stiffness equal or less than 1.3 m/s: High probability of being normal. *Liver Stiffness less than 1.7 m/s: In the absence of other known clinical signs, rules out compensated advanced chronic liver disease. *Liver Stiffness 1.7-2.1 m/s: Suggestive of compensated advanced chronic liver disease but need further test for confirmation. *Liver Stiffness over 2.1 m/s: Rules in compensated advanced chronic liver disease. *Liver Stiffness over 2.4 m/s: Suggestive of clinically significant portal hypertension. QUALITY OF DATA SET: *IQR/Median value equal or less than 0.15 implies a quality data set. *IQR/Median value over 0.15 implies a poor quality data set. SIGNIFICANT CHANGE FROM PRIOR EXAM: Significant change if liver stiffness measurement is 10% or greater from prior exam. OTHER CONSIDERATIONS: The stage of liver fibrosis may be overestimated in the setting of acute hepatitis, liver inflammation, elevated liver function tests, hepatic vascular congestion, obstructive cholestasis, non-fasting state, and infiltrative diseases such as amyloidosis and lymphoma. In some patients with NAFLD, the liver stiffness thresholds for compensated advanced chronic liver disease may be lower. In causes other than viral hepatitis and NAFLD, liver stiffness thresholds are not well established.
== END 2024-04-16 09:33 | disposition home or self-care (01) ==
LOC: HO.US 09:32
PROVIDERS: Visit Provider Nurse Practitioner Family
DX: F10.20 Alcohol dependence, uncomplicated (principal)
CPT/HCPCS: 76705; 76981

== ENCOUNTER 2024-05-06 09:10 | Outpatient (AMB) | payer OTHER, SELFPAY ==
--- NOTE | 2024-05-06 09:17 | MHC.PC.OV ---
Vital Signs 05/06/24 09:19 Height 5 ft 9 in Weight 192 lb BMI 28.4 BP 138/80 Blood Pressure Location Lt brachial Position Sitting Pulse Source Pulse Oximeter Pulse Oximetry (%) 97 Oxygen Delivery Method Room Air Intake Visit Reasons: 30 min 2-3 weeks w me FU [place] Palsy, Liver US Allergies sertraline Adverse Reaction (Unknown, Verified 05/06/24 09:20) sexual side effects Medication List - Last Reconciled 05/06/24 by Rupinder Ochoa, [employer] MANAGER-BC carboxymethylcellulose sodium 1% (Artificial Tears (carboxymethylcellulose)) 1 drp ophthalmic-Right BID ibuprofen 600 mg PO Q6H PRN Tobacco use date assessed: 04/16/24 Dental Screening Dental Screen Date: 04/16/24 HPI HPI Comments History of Present Illness Details 39-year-old male with major depressive disorder, EtOH dependence, [place] Palsy 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 [place] palsy sx have improved since last visit, doing facial exercises Eye exam 05/18/24 - he tried to get in sooner but was not able has been doing eye protection as directed. In regards to the below liver elastography results which were discuss with him in detail today, he continues to drink daily, 3-4 beers per day has a few more over the weekend March 28 was sober for 1 month while being ill Did have some restlessness otherwise denies any other sx assoc w/ withdrawal Was [place] [facility] [place] he did not follow through Has done programs and AA in the past and this was a negative experience. Interested in counseling, will meet with NN today, not interested in group therapies. Offered medication such as hydroxyzine and or clonidine to help him get sober. At this time he would like to hold off. Does have an appointment to see GI at [facility] [place] in June. This is for a screening colonoscopy. However I will send a message to the provider directly to alert of the abnormal liver elastography results to see if they can follow up on this at that visit or schedule an additional visit as needed. I would like to see him back in 3 months, sooner as needed. [id number] message sent to CHETNA Ribera: Hi He has appt february in June for screening colo (family hx of colon ca). However he is a current daily drinker, I did liver elasography which was abnormal I was hoping February could manage this going forward. Not sure if he needs an additional appt or if this can be reviewed at the visit that is already scheduled I advised patient that your office would reach out to advise further. Thank you, Rupinder 04/2024 liver elastography US: FINDINGS: PANCREAS: Normal. The visualized pancreatic head and body are normal in appearance. The remainder of the pancreas is obscured from visualization by the overlying bowel gas. LIVER: The liver is mildly enlarged and shows normal contour and increased echogenicity, with pericholecystic sparing. No focal lesion or intrahepatic biliary duct dilatation. The right lobe measures 17.3 cm in length. The left lobe measures 11.6 cm in length. Portal flow is towards the liver (hepatopetal). Shear wave liver elastography median stiffness is 2.09 m/s (reference: normal median stiffness is 1.3 m/s or less). IQR/median stiffness to assess sampling precision is 0.08 (reference: good quality data set is IQR/median stiffness of 0.15 or less). GALLBLADDER: Normal. The gallbladder is physiologically distended without evidence of stones, sludge, polyps, wall thickening or pericholecystic fluid. COMMON BILE DUCT: Normal in caliber measuring 0.4 cm in diameter. RIGHT KIDNEY: Normal. No hydronephrosis. No renal calculi or focal parenchymal lesions. The kidney measures 10.7 cm in maximum dimension. FREE FLUID: None. US/US abdomen robertson w elastography IMPRESSION: 1. There is generalized increase in hepatic echotexture, consistent with fatty infiltration or hepatocellular disease. Please correlate clinically. Characteristic pericholecystic sparing favors fatty infiltration. No focal hepatic mass or intrahepatic biliary dilatation is seen. 2. There is mild hepatomegaly. 3. 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 Sarthak Ceballos, Kiesha Singh, Bennett Armando and colleagues, with an educational roberto from [employer]. Physical exam (Primary Care) Vital Signs: Last Vital Signs Pulse Ox 97 05/06/24 09:19 Oxygen Delivery Method Room Air 05/06/24 09:19 BMI result Body Mass Index 28.4 Tobacco/Smoking Status: Tobacco use Status Tobacco use date assessed 04/16/24 05/06/24 09:20 Patient Tobacco Use Status Former Tobacco user (Stopped 05/06/24 09:20 the past two weeks due to illness) e-Cigarette/Vaping Use Never Used 05/06/24 09:20 Thrive Assessment: Date of Thrive Assessment Date Thrive assessed 04/07/24 05/06/24 09:20 Const Other: awake alert, NAD 7 cranial nerve palsy affecting R side improving and almost completely resolved scleras nonicteric bilat, no obvious corneal abrasion, no drainage MMM Abd soft, nontender, hepatomegaly, liver edge palpable No edema BLE, skin intact Pleasant and cooperative Assessment and Plan Assessment & Plan (1) Abnormal ultrasound of liver: Code(s): R93.2 - Abnormal findings on diagnostic imaging of liver and biliary tract (2) EtOH dependence: Code(s): F10.20 - Alcohol dependence, uncomplicated Qualifiers: Substance use status: uncomplicated Qualified Code(s): F10.20 - Alcohol dependence, uncomplicated (3) Elevated ferritin: Code(s): R79.89 - Other specified abnormal findings of blood chemistry (4) 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 While every effort has been made to ensure accuracy in cna ltc, still errors may have been included Sometimes, these errors may affect the content or meaning of the given sentence . Total time spent caring for the patient today was 42 minutes. This includes time spent before the visit reviewing the chart, time spent during the visit, and time spent after the visit on documentation Patient Instructions: Could consider Vistaril and/or Clonidine to help w/ sobriety/anxiety NN met w/ him today Hand outs from [employer] provided to him Coding Level of Care Code Est Pt Level 5 (79381) Complex EM visit Add On G2211 Diagnoses Abnormal ultrasound of liver R93.2 Uncomplicated alcohol dependence F10.20 Substance use status: uncomplicated Elevated ferritin R79.89 Adams palsy G51.0
[2024-05-06 09:19] VITALS: BP 138/80; O2SAT 97; BMI 28.4
== END 2024-05-06 09:51 | disposition home or self-care (01) ==
PROVIDERS: PCP Nurse Practitioner Family; Visit Provider Nurse Practitioner Family
DX: R93.2 Abnormal findings on diagnostic imaging of liver and biliary tract (principal); F10.20 Alcohol dependence, uncomplicated; R79.89 Other specified abnormal findings of blood chemistry; G51.0 Bell's palsy
CPT/HCPCS: 99215; G2211

== ENCOUNTER 2024-07-01 12:12 | Outpatient (AMB) | payer OTHER, SELFPAY ==
--- NOTE | 2024-07-01 12:14 | A.OFFVIS_ITS ---
Vital Signs 07/01/24 12:15 Height 5 ft 9 in Weight 193 lb 9.054 oz BMI 28.6 BP 126/86 Blood Pressure Location Rt brachial Position Sitting Pulse 96 Pulse Source Pulse Oximeter Pulse Oximetry (%) 96 Oxygen Delivery Method Room Air Intake Visit Reasons: [place] screening Intake Note: Michele presents in office today for a scheduled colo consult. CC; Pt reports that they are here for colo consult but also for ongoing elevated liver enzymes. Pt denies any previous hx of colo. Pt requests an earlier colo due to famliy hx (father). Pt denies any known GI sx at this time. 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 He is referred by Rupinder CHESTER-BC of [facility] primary care. PMX Alcohol use disorder Depression Elevated ferritin Lyme disease [place] palsy Smoker 1 pk [id number] * SURGICAL HISTORY Jaw wiring for fx * ALLERGIES Sertraline s/e ED * [facility] LABS: Laboratory Tests 03/31/24 04/01/24 04/07/24 15:03 04:12 13:38 WBC 8.2 Hgb 16.4 Hct 47.0 MCV 98.1 H MCH 34.2 H Plt Count 181 Estimated GFR > 60 Ferritin 1295 H Total Bilirubin 0.8 AST 79 H ALT 105 H Alkaline Phosphatase 90 TSH 2.19 Hepatitis A IgM Ab Nonreactive Hep Bs Antigen Negative Hep Bs Antibody REACTIVE Hep B Core Total Ab Nonreactive Hepatitis C Ab (EIA) Nonreactive US ABD WITH ELASTOGRAPHY 04/29/24 (F-2) FINDINGS: PANCREAS: Normal. The visualized pancreatic head and body are normal in appearance. The remainder of the pancreas is obscured from visualization by the overlying bowel gas. LIVER: The liver is mildly enlarged and shows normal contour and increased echogenicity, with pericholecystic sparing. No focal lesion or intrahepatic biliary duct dilatation. The right lobe measures 17.3 cm in length. The left lobe measures 11.6 cm in length. Portal flow is towards the liver (hepatopetal). Shear wave liver elastography median stiffness is 2.09 m/s (reference: normal median stiffness is 1.3 m/s or less). IQR/median stiffness to assess sampling precision is 0.08 (reference: good quality data set is IQR/median stiffness of 0.15 or less). GALLBLADDER: Normal. The gallbladder is physiologically distended without evidence of stones, sludge, polyps, wall thickening or pericholecystic fluid. COMMON BILE DUCT: Normal in caliber measuring 0.4 cm in diameter. RIGHT KIDNEY: Normal. No hydronephrosis. No renal calculi or focal parenchymal lesions. The kidney measures 10.7 cm in maximum dimension. FREE FLUID: None. US/US abdomen robertson w elastography IMPRESSION: 1. There is generalized increase in hepatic echotexture, consistent with fatty infiltration or hepatocellular disease. Please correlate clinically. Characteristic pericholecystic sparing favors fatty infiltration. No focal hepatic mass or intrahepatic biliary dilatation is seen. 2. There is mild hepatomegaly. 3. Liver elastography: Measurements are suggestive of compensated advanced chronic liver disease but need further test for confirmation. 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 On 05/06/24 @ 10:07 Rupinder Ochoa Wrote To CHETNA Ribera Hi He has appt / February in June for screening colo (family hx of colon ca). However he is a current daily drinker, I did liver elasography which was abnormal I was hoping February could manage this going forward. Not sure if he needs an additional appt or if this can be reviewed at the visit that is already scheduled I advised patient that your office would reach out to advise further. Thank you, Rupinder TODAY'S VISIT This will be his first colonoscopy, his father of CRC at age 61. He comes from a family of very heavy drinkers since he was very young. He will regularly drink 20-30 shots whiskeys a week. He stopped for 2 years ago and he will stop for a week to month when he has to take abx. 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 He has neer had withdrawal sx just increased anxiety. He is unsure of hx of liver disease, brother looking for ETOH rehab. He denies any cardiac or respiratory problems NO ID problems He is naive to anesthesia and sedation He father or CRC at age 61. Get EGD/colonoscopy for esoph varicies etc. ROV 6 weeks. 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 Current occupational exposures/hazards: No Cognitive needs: No Hearing needs: No Vision needs: No Review of Systems Const Denies fatigue, Denies fever(s), Denies night sweats, Denies poor appetite and Denies weight loss ENT Reports Normal hearing present, Denies dental pain, Denies dysphagia, Denies hearing loss, Denies mouth pain, Denies odynophagia, Denies throat swelling, Denies tongue swelling and Reports other (Dentition adequate) Card Reports no additional complaints Resp Reports no additional complaints GI Details: Denies abdominal pain, Denies melena, Denies bloating, Denies hematochezia, Denies constipation, Denies GI cramping, Denies dysphagia, Denies excessive flatus, Denies early satiety, Denies heartburn, Denies diarrhea, Denies nausea, Denies odynophagia, Denies vomiting and Denies hematemesis Skin/Breast Denies pruritus, Denies lesions, Denies rash and Denies jaundice Neuro Reports Normal hearing present, Denies Abnormal speech present, Denies Other visual disturbances, Denies convulsions and Denies tremor(s) Psych Reports anxiety Endo Denies fatigue Aller/Immun Denies throat swelling and Denies tongue swelling Physical Exam Vital Signs: Last Vital Signs Pulse 96 07/01/24 12:15 BP 126/86 07/01/24 12:15 Pulse Ox 96 07/01/24 12:15 Oxygen Delivery Method Room Air 07/01/24 12:15 BMI result Body Mass Index 28.6 Const General: cooperative, no acute distress, well developed and well groomed Nutritional Appearance: well nourished and overweight Orientation/consciousness: oriented to person, oriented to place and oriented to time Limitations: No language barrier HEENT Head: Yes normocephalic and Yes atraumatic Eyes General: appearance normal, both eyes and all related structures Pupils: Equal, round and reactive pupils present Neck Neck: Yes normal visual inspection and Yes no lymphadenopathy Thyroid: Thyroid normal Resp Effort & Inspection: normal respiratory effort and able to speak in complete sentences Auscultation: clear to auscultation bilaterally Cardio Rate: regular rate Rhythm: regular rhythm Heart sounds: Normal, physiologic split S2 sound present Peripheral pulses: radial pulses present and posterior tibial pulses present GI Inspection: No distended, No Abdominal panniculus present, Yes obesity and No caput medusae present Palpation (GI): Soft to palpation, nontender, no guarding, not rigid, Hepatosplenomegaly present (Approximately 1 in below the lowest rib), no splenomegaly and No Ascites present Percussion: Yes normal to percussion Auscultation: normal bowel sounds Rectal Exam - Male: Yes deferred Skin General skin exam: no rashes or lesions noted, turgor normal, skin not dry, no jaundice, No spider nevi and no striae Rashes: no rashes Nails: normal Neuro General: oriented to person, oriented to place and oriented to time Cranial nerves: Yes Equal, round and reactive pupils present and Yes Normal hearing present Speech: No Abnormal speech present Extrem General: Yes normal to inspection, No clubbing, No cyanosis and No edema Psych Appearance: grossly normal and well kempt Mental Status: mental status grossly normal Speech and movement: Normal speech and movement present Affect: normal affect Attitude: cooperative Thought process: Normal thought process present and not confabulating Thought content: Normal thought content present Insight: Fair insight present (Psych) Judgement: Fair judgement present (Psych) Results Reviewed Results Reviewed: Laboratory Tests 03/31/24 04/01/24 04/07/24 15:03 04:12 13:38 WBC 8.2 Hgb 16.4 Hct 47.0 MCV 98.1 H MCH 34.2 H Plt Count 181 Estimated GFR > 60 Ferritin 1295 H Total Bilirubin 0.8 AST 79 H ALT 105 H Alkaline Phosphatase 90 TSH 2.19 Hepatitis A IgM Ab Nonreactive Hep Bs Antigen Negative Hep Bs Antibody REACTIVE Hep B Core Total Ab Nonreactive Hepatitis C Ab (EIA) Nonreactive US ABD WITH ELASTOGRAPHY 04/29/24 (F-2) FINDINGS: PANCREAS: Normal. The visualized pancreatic head and body are normal in appearance. The remainder of the pancreas is obscured from visualization by the overlying bowel gas. LIVER: The liver is mildly enlarged and shows normal contour and increased echogenicity, with pericholecystic sparing. No focal lesion or intrahepatic biliary duct dilatation. The right lobe measures 17.3 cm in length. The left lobe measures 11.6 cm in length. Portal flow is towards the liver (hepatopetal). Shear wave liver elastography median stiffness is 2.09 m/s (reference: normal median stiffness is 1.3 m/s or less). IQR/median stiffness to assess sampling precision is 0.08 (reference: good quality data set is IQR/median stiffness of 0.15 or less). GALLBLADDER: Normal. The gallbladder is physiologically distended without evidence of stones, sludge, polyps, wall thickening or pericholecystic fluid. COMMON BILE DUCT: Normal in caliber measuring 0.4 cm in diameter. RIGHT KIDNEY: Normal. No hydronephrosis. No renal calculi or focal parenchymal lesions. The kidney measures 10.7 cm in maximum dimension. FREE FLUID: None. US/US abdomen robertson w elastography IMPRESSION: 1. There is generalized increase in hepatic echotexture, consistent with fatty infiltration or hepatocellular disease. Please correlate clinically. Characteristic pericholecystic sparing favors fatty infiltration. No focal hepatic mass or intrahepatic biliary dilatation is seen. 2. There is mild hepatomegaly. 3. Liver elastography: Measurements are suggestive of compensated advanced chronic liver disease but need further test for confirmation. Assessment & Plan Assessment & Plan (1) Transaminitis: Comment: Baseline Laboratory Tests 03/31/2405/ [id number] WBC 8.2 Hgb 16.4 Hct 47.0 MCV 98.1 H MCH 34.2 H Plt Count 181 Estimated GFR > 60 Ferritin 1295 H Total Bilirubin 0.8 AST 79 H ALT 105 H Alkaline Phosphatase 90 TSH 2.19 Hepatitis A IgM Ab Nonreactive Hep Bs Antigen Negative Hep Bs Antibody REACTIVE Hep B Core Total Ab Nonreactive Hepatitis C Ab (EIA) Nonreactive US ABD WITH ELASTOGRAPHY 04/29/24 (F-2) US ABD WITH ELASTOGRAPHY 04/29/24 (F-2) FINDINGS: PANCREAS: Normal. The visualized pancreatic head and body are normal in appearance. The remainder of the pancreas is obscured from visualization by the overlying bowel gas. LIVER: The liver is mildly enlarged and shows normal contour and increased echogenicity, with pericholecystic sparing. No focal lesion or intrahepatic biliary duct dilatation. The right lobe measures 17.3 cm in length. The left lobe measures 11.6 cm in length. Portal flow is towards the liver (hepatopetal). Shear wave liver elastography median stiffness is 2.09 m/s (reference: normal median stiffness is 1.3 m/s or less). IQR/median stiffness to assess sampling precision is 0.08 (reference: good quality data set is IQR/median stiffness of 0.15 or less). GALLBLADDER: Normal. The gallbladder is physiologically distended without evidence of stones, sludge, polyps, wall thickening or pericholecystic fluid. COMMON BILE DUCT: Normal in caliber measuring 0.4 cm in diameter. RIGHT KIDNEY: Normal. No hydronephrosis. No renal calculi or focal parenchymal lesions. The kidney measures 10.7 cm in maximum dimension. FREE FLUID: None. US/US abdomen robertson w elastography IMPRESSION: 1. There is generalized increase in hepatic echotexture, consistent with fatty infiltration or hepatocellular disease. Please correlate clinically. Characteristic pericholecystic sparing favors fatty infiltration. No focal hepatic mass or intrahepatic biliary dilatation is seen. 2. There is mild hepatomegaly. 3. Liver elastography: Measurements are suggestive of compensated advanced chronic liver disease but need further test for confirmation. Code(s): R74.01 - Elevation of levels of liver transaminase levels Category: Medical (2) Elevated ferritin: Code(s): R79.89 - Other specified abnormal findings of blood chemistry Category: Medical (3) EtOH dependence: Comment: He will regularly drink 20-30 shots whiskeys a week. Code(s): F10.20 - Alcohol dependence, uncomplicated Category: Medical Qualifiers: Substance use status: uncomplicated Qualified Code(s): F10.20 - Alcohol dependence, uncomplicated (4) Pre-op examination: Code(s): Z01.818 - Encounter for other preprocedural examination Category: Medical (5) Family hx of colon cancer: Code(s): Z80.0 - Family history of malignant neoplasm of digestive organs Category: Medical Plan This will be his first colonoscopy, his father of CRC at age 61. He comes from a family of very heavy drinkers since he was very young. He will regularly drink 20-30 shots whiskeys a week. He stopped for 2 years ago and he will stop for a week to month when he has to take abx. 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 He has neer had withdrawal sx just increased anxiety. He is unsure of hx of liver disease, brother looking for ETOH rehab. He denies any cardiac or respiratory problems NO ID problems He is naive to anesthesia and sedation He father or CRC at age 61. Get EGD/colonoscopy for esoph varicies etc. ROV 6 weeks. Orders: Orders Ammonia Today R74.01 - Elevation of levels of liver transaminase levels, R79.89 - Other specified abnormal findings of blood chemistry Mitochondrial Antibody Today R74.01 - Elevation of levels of liver transaminase levels, R79.89 - Other specified abnormal findings of blood chemistry EGD/[place] Combo - GI Use Only Today F10.20 - Alcohol dependence, uncomplicated, R74.01 - Elevation of levels of liver transaminase levels, Z80.0 - Family history of malignant neoplasm of digestive organs Alpha Fetoprotein Today R74.01 - Elevation of levels of liver transaminase levels, R79.89 - Other specified abnormal findings of blood chemistry PEGGY Reflex Titer and Pattern Today R74.01 - Elevation of levels of liver transaminase levels, R79.89 - Other specified abnormal findings of blood chem istry DNA Analysis Hemochromatosis Today R74.01 - Elevation of levels of liver transaminase levels, R79.89 - Other specified abnormal findings of blood chemistry Smooth Muscle Antibody Today R74.01 - Elevation of levels of liver transaminase levels, R79.89 - Other specified abnormal findings of blood chemistry Liver Fibrosis Pnl Today R74.01 - Elevation of levels of liver transaminase levels, R79.89 - Other specified abnormal findings of blood chemistry HIV Ab/Ag Today R74.01 - Elevation of levels of liver transaminase levels, R79.89 - Other specified abnormal findings of blood chemistry Phosphatidylethanol, Blood Today R74.01 - Elevation of levels of liver transaminase levels, R79.89 - Other specified abnormal findings of blood chemistry Medications: New peg 3350-electrolytes 236-22.74-6.74 -5.86 gram (Golytely) until fecal effluent is clear; do not exceed a total volume of 2,000 mL 240 mL PO Q10M 4,000 mL 0RF 1 day Z12.11 - Encounter for screening for malignant neoplasm of colon bisacodyl (Dulcolax (bisacodyl)) 10 mg (2 x 5 mg) PO BEDTIME 4 tabs 0RF 2 days Coding Level of Care Code New Pt Level 3 (20354) Diagnoses Transaminitis R74.01 Elevated ferritin R79.89 Uncomplicated alcohol dependence F10.20 Substance use status: uncomplicated Pre-op examination Z01.818 Family hx of colon cancer Z80.0
[2024-07-01 12:15] VITALS: BP 126/86; PULSE 96; O2SAT 96; BMI 28.6
== END 2024-07-01 13:06 | disposition home or self-care (01) ==
PROVIDERS: PCP Nurse Practitioner Family; Visit Provider Nurse Practitioner
DX: R74.01 Elevation of levels of liver transaminase levels (principal); R79.89 Other specified abnormal findings of blood chemistry; F10.20 Alcohol dependence, uncomplicated; Z01.818 Encounter for other preprocedural examination; Z80.0 Family history of malignant neoplasm of digestive organs
CPT/HCPCS: 99203

== ENCOUNTER 2024-07-01 12:12 | Outpatient (REF) | payer OTHER, SELFPAY ==
[2024-07-01 13:58] LABS: Ammonia 29 umol/L (13-55)
[2024-07-02 04:23] LABS: HIV AB/AG Nonreactive (Nonreactive); HIV Num 1 0.05 S/CO (0.00-0.99)
[2024-07-03 12:38] LABS: Alpha Fetoprotein 3.5 ng/mL (<6.1)
[2024-07-06 12:17] LABS: Smooth Muscle Antibody <20 U (<20)
[2024-07-07 12:38] LABS: Mitochondrial Antibodies NEGATIVE (NEGATIVE)
[2024-07-07 13:28] LABS: Anti Nuclear Antibody Screen NEGATIVE (NEGATIVE)
[2024-07-15 15:02] LABS: FIB-Alpha-2-Macroglobulin 186; Liver Fibrosis Interpretation no fibrosis; Liver Fibrosis Score 0.22; Liver Fibrosis Stage F0-F1; Nec Inflam Act Grade A0-A1; Nec Inflam Act Interpretation no activity; Nec Inflam Act Score 0.25
[2024-07-15 15:03] LABS: FIB-Apolipoprotein A1 124; FIB-Haptoglobin 198
[2024-07-15 15:04] LABS: FIB-Total Bilirubin 0.6
[2024-07-15 15:05] LABS: FIB-GGT 49
== END 2024-07-01 12:13 | disposition home or self-care (01) ==
LOC: HO.LAB 12:12
PROVIDERS: PCP Nurse Practitioner Family; Visit Provider Nurse Practitioner
DX: R74.01 Elevation of levels of liver transaminase levels (principal); R79.89 Other specified abnormal findings of blood chemistry
CPT/HCPCS: 36415; 80321; 81256; 81596; 82105; 82140; 86015; 86038; 86381; 87389; 99202

== ENCOUNTER 2024-08-12 13:21 | Outpatient (REF) | payer OTHER, SELFPAY ==
[2024-08-12 15:19] LABS: INTERNATIONAL NORM RATIO 0.9 (0.9-1.1); Prothrombin Time 10.4 SEC (10.9-12.4)
[2024-08-12 15:36] LABS: Alanine Aminotransferase 105 U/L (0-40); Albumin Level 4.3 g/dL (3.5-5.0); Alkaline Phosphatase 82 U/L (39-117); Aspartate Amino Transferase 59 U/L (5-37); Bilirubin Direct 0.2 mg/dL (0.0-0.5); Bilirubin Total 0.8 mg/dL (0.0-1.0); Total Protein 7.9 g/dL (6.5-8.0)
[2024-08-14 03:59] LABS: Transferrin 270 mg/dL (188-341)
== END 2024-08-12 13:22 | disposition home or self-care (01) ==
LOC: HO.LAB 13:21
PROVIDERS: PCP Nurse Practitioner Family; Visit Provider Nurse Practitioner
DX: R79.89 Other specified abnormal findings of blood chemistry (principal); R74.01 Elevation of levels of liver transaminase levels; K70.0 Alcoholic fatty liver
CPT/HCPCS: 36415; 80076; 84466; 85610; 99212

== ENCOUNTER 2024-08-12 13:21 | Outpatient (AMB) | payer OTHER, SELFPAY ==
--- NOTE | 2024-08-12 13:28 | A.OFFVIS_ITS ---
Vital Signs 08/12/24 13:29 Height 5 ft 9 in Weight 196 lb 10.437 oz BMI 29.0 BP 146/88 H Blood Pressure Location Rt brachial Position Sitting Pulse 92 Intake Visit Reasons: 6 week follow up Intake Note: Michele returns to in office follow up of labs. CC: Patient reports doing well today denies having any GI symptoms or concerns. Learning Administrator Required: No Accompanied by: Self / Same As Patient Allergies sertraline Adverse Reaction (Unknown, Verified 09/02/24 04:42) sexual side effects HPI HPI 6 week follow up: Details: Assessment & Plan (1) Transaminitis: Comment: Baseline Laboratory Tests 03/31/2405/ 15:0304:1213:38 WBC 8.2 Hgb 16.4 Hct 47.0 MCV 98.1 H MCH 34.2 H Plt Count 181 Estimated GFR > 60 Ferritin 1295 H Total Bilirubin 0.8 AST 79 H ALT 105 H Alkaline Phosphatase 90 TSH 2.19 Hepatitis A IgM Ab Nonreactive Hep Bs Antigen Negative Hep Bs Antibody REACTIVE Hep B Core Total Ab Nonreactive Hepatitis C Ab (EIA) Nonreactive US ABD WITH ELASTOGRAPHY 04/29/24 (F-2) US ABD WITH ELASTOGRAPHY 04/29/24 (F-2) FINDINGS: PANCREAS: Normal. The visualized pancreatic head and body are normal in appearance. The remainder of the pancreas is obscured from visualization by the overlying bowel gas. LIVER: The liver is mildly enlarged and shows normal contour and increased echogenicity, with pericholecystic sparing. No focal lesion or intrahepatic biliary duct dilatation. The right lobe measures 17.3 cm in length. The left lobe measures 11.6 cm in length. Portal flow is towards the liver (hepatopetal). Shear wave liver elastography median stiffness is 2.09 m/s (reference: normal median stiffness is 1.3 m/s or less). IQR/median stiffness to assess sampling precision is 0.08 (reference: good quality data set is IQR/median stiffness of 0.15 or less). GALLBLADDER: Normal. The gallbladder is physiologically distended without evidence of stones, sludge, polyps, wall thickening or pericholecystic fluid. COMMON BILE DUCT: Normal in caliber measuring 0.4 cm in diameter. RIGHT KIDNEY: Normal. No hydronephrosis. No renal calculi or focal parenchymal lesions. The kidney measures 10.7 cm in maximum dimension. FREE FLUID: None. US/US abdomen robertson w elastography IMPRESSION: 1. There is generalized increase in hepatic echotexture, consistent with fatty infiltration or hepatocellular disease. Please correlate clinically. Characteristic pericholecystic sparing favors fatty infiltration. No focal hepatic mass or intrahepatic biliary dilatation is seen. 2. There is mild hepatomegaly. 3. Liver elastography: Measurements are suggestive of compensated advanced chronic liver disease but need further test for confirmation. Code(s): R74.01 - Elevation of levels of liver transaminase levels Category: Medical (2) Elevated ferritin: Code(s): R79.89 - Other specified abnormal findings of blood chemistry Category: Medical (3) EtOH dependence: Comment: He will regularly drink 20-30 shots whiskeys a week. Code(s): F10.20 - Alcohol dependence, uncomplicated Category: Medical Qualifiers: Substance use status: uncomplicated Qualified Code(s): F10.20 - Alcohol dependence, uncomplicated (4) Pre-op examination: Code(s): Z01.818 - Encounter for other preprocedural examination Category: Medical (5) Family hx of colon cancer: Code(s): Z80.0 - Family history of malignant neoplasm of digestive organs Category: Medical Plan This will be his first colonoscopy, his father of CRC at age 61. He comes from a family of very heavy drinkers since he was very young. He will regularly drink 20-30 shots whiskeys a week. He stopped for 2 years ago and he will stop for a week to month when he has to take abx. 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 He has neer had withdrawal sx just increased anxiety. He is unsure of hx of liver disease, brother looking for ETOH rehab. He denies any cardiac or respiratory problems NO ID problems He is naive to anesthesia and sedation He father or CRC at age 61. Get EGD/colonoscopy for esoph varicies etc. ROV 6 weeks. Orders: Orders Ammonia Today R74.01 - Elevation of levels of liver transaminase levels, R79.89 - Other specified abnormal findings of blood chemistry Mitochondrial Antibody Today R74.01 - Elevation of levels of liver transaminase levels, R79.89 - Other specified abnormal findings of blood chemistry EGD/[place] Combo - GI Use Only Today F10.20 - Alcohol dependence, uncomplicated, R74.01 - Elevation of levels of liver transaminase levels, Z80.0 - Family history of malignant neoplasm of digestive organs Alpha Fetoprotein Today R74. - Elevation of levels of liver transaminase levels, R79.89 - Other specified abnormal findings of blood chemistry PEGGY Reflex Titer and Pattern Today R74.01 - Elevation of levels of liver transaminase levels, R79.89 - Other specified abnormal findings of blood chemistry DNA Analysis Hemochromatosis Today R74. - Elevation of levels of liver transaminase levels, R79.89 - Other specified abnormal findings of blood chemistry Smooth Muscle Antibody Today R74. - Elevation of levels of liver transaminase levels, R79.89 - Other specified abnormal findings of blood chemistry Liver Fibrosis Pnl Today R74. - Elevation of levels of liver transaminase levels, R79.89 - Other specified abnormal findings of blood chemistry HIV Ab/Ag Today R74. - Elevation of levels of liver transaminase levels, R79.89 - Other specified abnormal findings of blood chemistry Phosphatidylethanol, Blood Today R74. - Elevation of levels of liver transaminase levels, R79.89 - Other specified abnormal findings of blood chemistry Medications: New peg 3350-electrolytes 236-22.74-6.74 -5.86 gram (Golytely) until fecal effluent is clear; do not exceed a total volume of 2,000 mL 240 mL PO Q10M 4,000 mL 0RF 1 day Z12.11 - Encounter for screening for malignant neoplasm of colon bisacodyl (Dulcolax (bisacodyl)) 10 mg (2 x 5 mg) PO BEDTIME 4 tabs 0RF 2 days Laboratory Tests 07/01/24 13:24 Liver GGT 49 Liver Total Bilirubin 0.6 Liver Fibrosis Stage F0-F1 Ammonia 29 Alpha Fetoprotein 3.5 Laboratory Tests 07/01/24 13:24 PEGGY Screen NEGATIVE Anti-Mitochondrial Ab NEGATIVE Anti-Smooth Muscle Ab <20 PEth 16:0/18.1 (POPEth) 359 (H) PEth 16:0/18.2 (PLPEth) 281 (H) HIV 1&2 Ab/P24 Ag 4thGn Nonreactive ENTERED: 07/01/24-[address] [facility] [address]: Rupinder Ochoa [facility] ORDERED: HemoDNA Test Result Flag Reference DNA Anal. Hemo See Below RESULT: POSITIVE FOR ONE HFE GENE PATHOGENIC VARIANT: H63D (HETEROZYGOTE) Interpretation: One copy of the H63D pathogenic variant in the HFE gene was detected. This patient is negative for the C282Y pathogenic variant. 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 This result reduces the likelihood of hereditary hemochromatosis (HH). However, it does not rule out the presence of other pathogenic variants within the HFE gene or a diagnosis of HH. The risk of this individual to carry an HFE pathogenic variant other than those tested in this assay depends greatly on family and clinical history as well as ethnicity. This assay does not test for other primary or secondary iron overload disorders. Consider genetic counseling and DNA testing for at- risk family members. COLONOSCOPY 11/05/2024 BIOPSY CORRESPONDENCE On 05/06/24 @ 10:08 Tiffany Maldonado Wrote To Bacilio,Ericka patient has FELTMAKER colo screening scheduled - can be discussed during that appt, correct? On 05/06/24 @ 10:07 Rupinder Ochoa Wrote To CHETNA Ribera Hi He has appt / February in June for screening colo (family hx of colon ca). However he is a current daily drinker, I did liver elasography which was abnormal I was hoping February could manage this going forward. Not sure if he needs an additional appt or if this can be reviewed at the visit that is already scheduled I advised patient that your office would reach out to advise further. Thank you, Rupinder TODAY'S VISIT I reviewed the labs to date and I tell him that alcohol is definitely contributing to his disease process but he also could have something called hemochromatosis. I explained that when we see an elevated ferritin we do not know whether it is caused by the liver disease, or whether it is contributing via a separate diagnosis. We will get some blood work to tease this out. In the meantime I continue to encourage him towards complete cessation of alcohol as he may also have an element of fatty liver. Return office visit in 3 months [facility] Medical History Pre-op examination Abnormal ultrasound of liver Hospital discharge follow-up Jaw fracture Jaw clicking Family History Father Colon cancer Depression Brother Depression Other FH: mental illness Substance abuse Social History Housing: Apartment Alcohol intake: current Alcohol intake frequency: 3 or more drinks per day Patient Tobacco Use Status: Former Tobacco user Years Smoked: 20 Smoked in Last 30 Days: Yes e-Cigarette/Vaping Use: Never Used Second Hand Smoke Exposure: No Use of substances other than those prescribed or required for medical reasons: No Substance Use Type: Crack/Cocaine Advance Directives: No Do you have a plan to hurt others: No Plan service: No Current occupational status: employed 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 Current occupational exposures/hazards: No Cognitive needs: No Hearing needs: No Vision needs: No Review of Systems Const Denies fatigue, Denies fever(s), Denies night sweats, Denies poor appetite and Denies weight loss ENT Reports Normal hearing present, Denies dental pain, Denies dysphagia, Denies hearing loss, Denies mouth pain, Denies odynophagia, Denies throat swelling, Denies tongue swelling and Reports other (Dentition adequate) Card Reports no additional complaints Resp Reports no additional complaints GI Details: Denies abdominal pain, Denies melena, Denies bloating, Denies hematochezia, Denies constipation, Denies GI cramping, Denies dysphagia, Denies excessive flatus, Denies early satiety, Denies heartburn, Denies diarrhea, Denies nausea, Denies odynophagia, Denies vomiting and Denies hematemesis Skin/Breast Denies pruritus, Denies lesions, Denies rash and Denies jaundice Neuro Reports Normal hearing present and Denies Abnormal speech present Endo Denies fatigue Aller/Immun Denies throat swelling and Denies tongue swelling Physical Exam Vital Signs: Last Vital Signs Pulse 92 08/12/24 13:29 BP 146/88 H 08/12/24 13:29 BMI result Body Mass Index 29.0 Const General: cooperative, no acute distress, well developed and well groomed Nutritional Appearance: well nourished and overweight Orientation/consciousness: oriented to person, oriented to place and oriented to time Limitations: No language barrier HEENT Head: Yes normocephalic and Yes atraumatic Eyes General: appearance normal, both eyes and all related structures Pupils: Equal, round and reactive pupils present Neck Neck: Yes normal visual inspection and Yes no lymphadenopathy Thyroid: Thyroid normal Resp Effort & Inspection: normal respiratory effort and able to speak in complete sentences Auscultation: clear to auscultation bilaterally Cardio Rate: regular rate Rhythm: regular rhythm Heart sounds: Normal, physiologic split S2 sound present Peripheral pulses: radial pulses present and posterior tibial pulses present GI Inspection: No distended, No Abdominal panniculus present and Yes obesity Palpation (GI): Soft to palpation, nontender, no guarding, not rigid and No hepatosplenomegaly present Percussion: Yes normal to percussion Auscultation: normal bowel sounds Rectal Exam - Male: Yes deferred Skin General skin exam: no rashes or lesions noted, turgor normal, skin not dry, no jaundice, No spider nevi and no striae Rashes: no rashes Nails: normal Neuro General: oriented to person, oriented to place and oriented to time Cranial nerves: Yes Equal, round and reactive pupils present and Yes Normal hearing present Speech: No Abnormal speech present Extrem General: Yes normal to inspection, No clubbing, No cyanosis and No edema Psych Appearance: grossly normal and well kempt Mental Status: mental status grossly normal Speech and movement: Normal speech and movement present Affect: normal affect Attitude: cooperative Thought process: Normal thought process present and not confabulating Thought content: Normal thought content present Insight: Fair insight present (Psych) Judgement: Fair judgement present (Psych) Results Reviewed Results Reviewed: Laboratory Tests 07/01/24 13:24 Liver GGT 49 Liver Total Bilirubin 0.6 Liver Fibrosis Stage F0-F1 Ammonia 29 Alpha Fetoprotein 3.5 Laboratory Tests 07/01/24 13:24 PEGGY Screen NEGATIVE Anti-Mitochondrial Ab NEGATIVE Anti-Smooth Muscle Ab <20 PEth 16:0/18.1 (POPEth) 359 (H) PEth 16:0/18.2 (PLPEth) 281 (H) HIV 1&2 Ab/P24 Ag 4thGn Nonreactive ENTERED: 07/01/24-[address] [facility] [address]: Rupinder Ochoa [facility] ORDERED: HemoDNA Test Result Flag Reference DNA Anal. Hemo See Below RESULT: POSITIVE FOR ONE HFE GENE PATHOGENIC VARIANT: H63D (HETEROZYGOTE) Interpretation: One copy of the H63D pathogenic variant in the HFE gene was detected. This patient is negative for the C282Y pathogenic variant. 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 This result reduces the likelihood of hereditary hemochromatosis (HH). However, it does not rule out the presence of other pathogenic variants within the HFE gene or a diagnosis of HH. The risk of this individual to carry an HFE pathogenic variant other th an those tested in this assay depends greatly on family and clinical history as well as ethnicity. This assay does not test for other primary or secondary iron overload disorders. Consider genetic counseling and DNA testing for at- risk family members. Assessment & Plan Assessment & Plan (1) Transaminitis: Comment: Baseline Laboratory Tests 03/31/2405/ 15:0304:1213:38 WBC 8.2 Hgb 16.4 Hct 47.0 MCV 98.1 H MCH 34.2 H Plt Count 181 Estimated GFR > 60 Ferritin 1295 H Total Bilirubin 0.8 AST 79 H ALT 105 H Alkaline Phosphatase 90 TSH 2.19 Hepatitis A IgM Ab Nonreactive Hep Bs Antigen Negative Hep Bs Antibody REACTIVE Hep B Core Total Ab Nonreactive Hepatitis C Ab (EIA) Nonreactive US ABD WITH ELASTOGRAPHY 04/29/24 (F-2) 07/01/24 13:24 Liver GGT 49 Liver Total Bilirubin 0.6 Liver Fibrosis Stage F0-F1 Ammonia 29 Alpha Fetoprotein 3.5 Liver GGT 49 Liver Total Bilirubin 0.6 Liver Fibrosis Stage F0-F1 Ammonia 29 Alpha Fetoprotein 3.5 07/01/24 PEGGY Screen NEGATIVE Anti-Mitochondrial Ab NEGATIVE Anti-Smooth Muscle Ab <20 PEth 16:0/18.1 (POPEth) 359 (H) PEth 16:0/18.2 (PLPEth) 281 (H) HIV 1&2 Ab/P24 Ag 4thGn Nonreactive ENTERED: 07/01/24-1311 ORDERED: HemoDNA Test Result Flag Reference DNA Anal. Hemo See Below RESULT: POSITIVE FOR ONE HFE GENE PATHOGENIC VARIANT: H63D (HETEROZYGOTE) US ABD WITH ELASTOGRAPHY 04/29/24 (F-2) FINDINGS: PANCREAS: Normal. The visualized pancreatic head and body are normal in appearance. The remainder of the pancreas is obscured from visualization by the overlying bowel gas. LIVER: The liver is mildly enlarged and shows normal contour and increased echogenicity, with pericholecystic sparing. No focal lesion or intrahepatic biliary duct dilatation. The right lobe measures 17.3 cm in length. The left lobe measures 11.6 cm in length. Portal flow is towards the liver (hepatopetal). Shear wave liver elastography median stiffness is 2.09 m/s (reference: normal median stiffness is 1.3 m/s or less). IQR/median stiffness to assess sampling precision is 0.08 (reference: good quality data set is IQR/median stiffness of 0.15 or less). GALLBLADDER: Normal. The gallbladder is physiologically distended without evidence of stones, sludge, polyps, wall thickening or pericholecystic fluid. COMMON BILE DUCT: Normal in caliber measuring 0.4 cm in diameter. RIGHT KIDNEY: Normal. No hydronephrosis. No renal calculi or focal parenchymal lesions. The kidney measures 10.7 cm in maximum dimension. FREE FLUID: None. US/US abdomen robertson w elastography IMPRESSION: 1. There is generalized increase in hepatic echotexture, consistent with fatty infiltration or hepatocellular disease. Please correlate clinically. Characteristic pericholecystic sparing favors fatty infiltration. No focal hepatic mass or intrahepatic biliary dilatation is seen. 2. There is mild hepatomegaly. 3. Liver elastography: Measurements are suggestive of compensated advanced chronic liver disease but need further test for confirmation. Code(s): R74.01 - Elevation of levels of liver transaminase levels Category: Medical (2) EtOH dependence: Comment: He will regularly drink 20-30 shots whiskeys a week. 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 Code(s): E83.110 - Hereditary hemochromatosis Category: Medical Plan I reviewed the labs to date and I tell him that alcohol is definitely contributing to his disease process but he also could have something called hemochromatosis. I explained that when we see an elevated ferritin we do not know whether it is caused by the liver disease, or whether it is contributing via a separate diagnosis. We will get some blood work to tease this out. In the meantime I continue to encourage him towards complete cessation of alcohol as he may also have an element of metabolic fatty liver. Return office visit in 3 months COLONOSCOPY 11/05/2024 BIOPSY Orders: Orders Liver Panel 08/12/24 K70.0 - Alcoholic fatty liver Prothrombin Time INR 08/12/24 R79.89 - Other specified abnormal findings of blood chemistry Transferrin 08/12/24 R74.01 - Elevation of levels of liver transaminase levels, R79.89 - Other specified abnormal findings of blood chemistry US biopsy liver 08/12/24 R79.89 - Other specified abnormal findings of blood chemistry Referrals Hematology & Oncology Referral R79.89 - Other specified abnormal findings of blood chemistry, E83.110 - Hereditary hemochromatosis, R74.01 - Elevation of levels of liver transaminase levels Coding Level of Care Code Est Pt Level 4 (70453) Diagnoses Transaminitis R74.01 Uncomplicated alcohol dependence F10.20 Substance use status: uncomplicated Family hx of colon cancer Z80.0 Alcoholic fatty liver K70.0 Elevated ferritin R79.89 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 Time Spent (min) 35
[2024-08-12 13:29] VITALS: BP 146/88; PULSE 92; BMI 29.0
== END 2024-08-12 14:12 | disposition home or self-care (01) ==
PROVIDERS: PCP Nurse Practitioner Family; Visit Provider Nurse Practitioner
DX: R74.01 Elevation of levels of liver transaminase levels (principal); F10.20 Alcohol dependence, uncomplicated; Z80.0 Family history of malignant neoplasm of digestive organs; K70.0 Alcoholic fatty liver; R79.89 Other specified abnormal findings of blood chemistry; E83.110 Hereditary hemochromatosis
CPT/HCPCS: 99214

== ENCOUNTER 2024-08-20 11:19 | Outpatient (REF) | payer OTHER, SELFPAY ==
--- NOTE | ~2024-08-20 | US_ITS ---
EXAMINATION: US ABDOMEN COMPLETE CLINICAL INFORMATION: Alcoholic fatty liver. COMPARISON: Limited ultrasound abdomen with liver elastography 04/16/2024. TECHNIQUE: Real-time imaging of the abdominal viscera. Limited visualization due to bowel gas. FINDINGS: PANCREAS: Limited visualization of pancreatic tail and head. Imaged portion of pancreatic body is unremarkable. ABDOMINAL AORTA: Limited visualization of the abdominal aorta. Imaged portions of the abdominal aorta are within normal limits in caliber. INFERIOR VENA CAVA: Visualized portions are normal. LIVER: Hepatomegaly, 17.9 cm. Increased hepatic parenchymal heterogeneity and echogenicity could be associated with hepatocellular disease/hepatic steatosis and severely limits visualization. Correlation with liver function tests and clinical exam recommended to determine further management. GALLBLADDER: No gallstones. No gallbladder wall thickening. COMMON BILE DUCT: Normal in caliber measuring 0.5 cm in diameter. RIGHT KIDNEY: No hydronephrosis. No renal calculi. Limited visualization. The kidney measures 10.8 cm in maximum dimension. LEFT KIDNEY: No hydronephrosis. No renal calculi. Limited visualization. The kidney measures 11.8 cm in maximum dimension. SPLEEN: Normal. The spleen measures 12.6 cm in maximum dimension. FREE FLUID: None. US/US abdomen complete IMPRESSION: Hepatomegaly, 17.9 cm. Increased hepatic parenchymal heterogeneity and echogenicity could be associated with hepatocellular disease/hepatic steatosis and severely limits visualization. Correlation with liver function tests and clinical exam recommended to determine further management. Electronically signed by: Kim Monique MD 09/02/2024 12:31 PM EDT
== END 2024-08-20 11:20 | disposition home or self-care (01) ==
LOC: HO.US 11:19
PROVIDERS: PCP Nurse Practitioner Family; Visit Provider Nurse Practitioner
DX: K70.0 Alcoholic fatty liver (principal)
CPT/HCPCS: 76700

== ENCOUNTER 2024-09-01 09:01 | Day surgery (SDC) | payer OTHER, SELFPAY ==
[2024-09-01] VITALS (13 sets, daily range): BP systolic 119–151; BP diastolic 80–97; PULSE 53–96; RESP 12–16; TEMP 36.1–37.2; O2SAT 94–96; BMI 28.5
--- NOTE | ~2024-09-01 | US_ITS ---
Ultrasound-guided liver biopsy History: Elevated LFTs, elevated ferritin Procedure: Ultrasound-guided liver biopsy Risks and benefits and possible complications were discussed with the patient and consent form was signed. The abdomen was prepped and draped in usual sterile fashion. 1% lidocaine was used for anesthesia. A 17-gauge coaxial needle was inserted through the skin and soft tissues and into the right lobe of the liver. A total of 3,18-gauge cores were performed. Permanent ultrasound images were archived. 2 Gelfoam torpedoes were inserted through the coaxial and administered into the biopsy tract and at the level of the capsule. The needle was then removed. The specimens were placed in formalin and sent to pathology. The patient tolerated the procedure well. The procedure was performed under moderate sedation with a dedicated nurse for monitoring of vital signs. The patient received a total of 2 Versed, and 100 Fentanyl. Moderate sedation time: 16 min This procedure was performed by Nacho Ca PA-C, and directly supervised by Dr. Lund. US/US biopsy liver Impression: Ultrasound-guided liver biopsy Electronically signed by: Marito Lund MD 09/17/2024 01:30 PM [facility] [place]
--- NOTE | 2024-09-01 10:30 | MHC.SHP ---
Pre-Procedural Eval Section A - 24 Hr Update-Section A only Date of Service: 09/01/24 Section B - Complete if H&P > 30 days Chief Complaint: ELEVATED FERRITIN Details of Present Illness: 39 y/o man with elevated LFTS and ferritin. GI requests a liver biopsy. Relevant Family History (Specify if Yes): Yes Relevant Social History: Tobacco Use Present Medications: see Short Stay Collaborative assessment Medical History: Significant History History of Previous Operations: No relevant previous surgery Allergies: Allergies Allergy/AdvReac Type Severity Reaction Status Date / Time sertraline AdvReac Unknown sexual Verified 08/12/24 13:36 side effects Review of Systems Sugical H&P ROS: Negative: Constitution, Cardiovascular and Gastrointestinal and Yes, Specify: Respiratory (cough) Exam Surgical H&P Exam: Normal: Heart, Normal: Lungs, Normal: Skin and Normal: Neurological and Significant Findings: Abdomen (protuberant, nt) Plan 39 y/o man with elevated LFTs and ferritin. -Liver biopsy. Time Spent With Patient Time: Total time managing care of this patient today ____ minutes.
[2024-09-01] MEDS: Lidocaine HCl 1 % MPF 5 ML VIAL 10 ML SUBCUT (11:06)
[2024-09-01] MEDS: BUPivacaine MPF 0.25 % 30 ML VIAL SUBCUT (11:07)
== END 2024-09-01 13:03 | disposition home or self-care (01) ==
PROVIDERS: Student in an Organized Health Care Education/Training Program; PCP Nurse Practitioner Family; Visit Provider Nurse Practitioner
DX: K75.81 Nonalcoholic steatohepatitis (NASH) (principal); K74.01 Hepatic fibrosis, early fibrosis; F10.20 Alcohol dependence, uncomplicated; Z80.0 Family history of malignant neoplasm of digestive organs; Z88.8 Allergy status to other drugs, medicaments and biological substances; Z87.891 Personal history of nicotine dependence
CPT/HCPCS: 47000; 76942; 86850; 86900; 86901; 88307; 88313; 99152; 99153; J0665; J2003; J2250; J2310; J3010

== ENCOUNTER → 2024-09-01 10:16 | Outpatient (BNV) | payer OTHER, SELFPAY | PROVIDERS: PCP Nurse Practitioner Family; Visit Provider Physician Assistant Surgical | DX: R79.89 Other specified abnormal findings of blood chemistry (principal); R74.01 Elevation of levels of liver transaminase levels | CPT/HCPCS: 47000; 76942; 99152 ==

== ENCOUNTER 2024-09-02 04:32 | Emergency (ER) | payer OTHER, SELFPAY ==
--- NOTE | ~2024-09-02 | CT_ITS ---
EXAMINATION: CT ABDOMEN AND PELVIS WITHOUT CONTRAST CLINICAL INFORMATION: Right upper quadrant pain status post liver biopsy yesterday. COMPARISON: Abdominal ultrasound 06/20/2024, sonographic liver biopsy 09/01/2024 TECHNIQUE: Multidetector volumetric imaging was performed from the superior aspect of the liver through the pubic symphysis. Sagittal and coronal reformatted images were obtained on the technologist's workstation. This CT examination was performed using dose optimization techniques as appropriate, variously including the following: *Automated exposure control *Adjustment of mA and/or kV according to patient size (this includes techniques or standardized protocols for targeted exams where dose is matched to indication/reason for exam; i.e. extremities or head) *Use of iterative reconstruction technique DLP: 644 mGy-cm FINDINGS: LUNG BASES: Clear. LIVER, GALLBLADDER, AND BILIARY TREE: Diffuse low-attenuation of the liver is noted. No perihepatic fluid collections or subcapsular fluid collections of the liver visualized. . The gallbladder is unremarkable with no evidence of radiopaque gallstones, gallbladder wall thickening, or obvious pericholecystic inflammatory changes. PANCREAS: Unremarkable. SPLEEN: Unremarkable. ADRENAL GLANDS: Unremarkable. KIDNEYS AND URETERS: The kidneys are normal in size, shape, and attenuation. No hydronephrosis, hydroureter, or calculi seen. No perinephric stranding. BLADDER: Unremarkable. GASTROINTESTINAL TRACT: No free intraperitoneal fluid or gas collections. The appendix is not definitively visualized. A diminutive structure which may represent small appendix is noted base of the cecum. Terminal ileum demonstrates mild concentric submucosal fat deposition. No intestinal dilatation is identified. Normal appearance of the stomach and duodenum. ABDOMINAL WALL: No abdominal wall inflammatory changes or abdominal wall fluid collections noted. No inflammatory changes of the abdominal wall in the region of the left lobe of the liver. LYMPH NODES: Normal. VASCULAR: Unremarkable. PELVIC VISCERA: Normal prostate and seminal vesicles OSSEOUS STRUCTURES: Unremarkable. CT/CT abdomen pelvis wo IV con IMPRESSION: *No acute abnormalities. No abnormal perihepatic fluid collections. No focal parenchymal lesions of the liver or subcapsular fluid collections of the liver. Normal appearance of the anterior abdominal wall. No free intraperitoneal fluid or gas collections. *Diffuse hepatic steatosis. Electronically signed by: Amilcar Watson MD 09/02/2024 06:50 AM EDT
--- NOTE | ~2024-09-02 | XR_ITS ---
EXAMINATION: XR CHEST CLINICAL INFORMATION: Shortness of breath. COMPARISON: 03/31/2024 TECHNIQUE: Frontal view of the chest was obtained. FINDINGS: There is no gross pneumothorax. Heart size is normal. Lung volumes are low. No pleural effusion. Mild prominence of the vasculature with perihilar peribronchial cuffing. XR/XR chest 1V IMPRESSION: Mild prominence of the vasculature with perihilar peribronchial cuffing. Low lung volumes. This study was presented today September 02, 2024 for interpretation. Stat results provided at this time as requested by referring provider. Electronically signed by: Kim Monique MD 09/02/2024 06:30 AM EDT
[2024-09-02 04:40] VITALS: BP 168/107; PULSE 87; RESP 18; TEMP 37.3; O2SAT 97; BMI 28.5
[2024-09-02] MEDS: oxyCODONE HCl Immed Release 5 MG TABLET PO (05:38)
[2024-09-02 05:59] LABS: Basophils Absolute Auto 0.1 X10*3/uL (0.0-0.2); Basophils Percent Auto 0.3 % (0-2); Eosinophils Absolute Auto 0.3 X10*3/uL (0.0-0.4); Eosinophils Percent Auto 1.6 % (0-4); Hematocrit 46.8 % (42.0-52.0); Hemoglobin 16.4 g/dl (14.0-18.0); Imm Gran Abs Auto 0.07 X10*3/uL (0.00-0.03); Imm Gran Pct Auto 0.4 % (0.0-0.4); Lymphocytes Absolute Auto 1.9 X10*3/uL (1.2-4.9); MANUAL DIFF FLAG NO; Mean Corpuscular Hemoglobin 34.3 pg (27.0-33.0); Mean Corpuscular Volume 97.9 fL (80.0-98.0); Monocytes Absolute Auto 1.4 X10*3/uL (0.1-1.2); Monocytes Percent Auto 8.6 % (2-11); Neutrophils Absolute Auto 12.2 x10*3/uL (2.0-8.3); Neutrophils Percent Auto 77.1 % (45-73); Platelet Count 201 X10*3/uL (160-400); Red Blood Count 4.78 X10*6/uL (4.60-5.80); White Blood Count 15.8 X10*3/uL (4.8-10.8)
[2024-09-02 06:20] LABS: Alanine Aminotransferase 77 U/L (0-40); Alkaline Phosphatase 83 U/L (39-117); Anion Gap 12 (12-20); Aspartate Amino Transferase 41 U/L (5-37); Bilirubin Direct 0.3 mg/dL (0.0-0.5); Bilirubin Total 1.2 mg/dL (0.0-1.0); Blood Urea Nitrogen 12 mg/dL (9-16); Calcium 8.9 mg/dL (8.4-10.2); Carbon Dioxide 25 mmol/L (22-29); Chloride 104 mmol/L (96-108); Creatinine Clr Calc Pharmacy 109.7; Estimated Glomerular Filt Rate > 60; Glucose Random 125 mg/dL (60-115); Potassium 3.9 mmol/L (3.3-5.1); Sodium 137 mmol/L (135-145); Total Protein 7.2 g/dL (6.5-8.0)
--- NOTE | 2024-09-02 07:10 | ED.GENADULT ---
HPI - General Adult General Chief complaint: Abdominal Pain Stated complaint: side pain Time Seen by Provider: 09/02/24 05:25 Source: patient Mode of arrival: ambulatory Limitations: no limitations History of Present Illness ED Provider: Dr. Christina Yoon HPI narrative: Patient comes to the emergency room complaining of chest pain and right upper quadrant pain that started a few hours ago. Yesterday, patient had a liver biopsy done, patient is being worked up for hemochromatosis. Patient denies fever chills, denies nausea vomiting or diarrhea. Patient does not have any other complaints. Patient denies any localized trauma, no heavy lifting. Related Data Previous Rx's ?Medication ?Instructions ?Recorded ibuprofen 600 mg tablet 600 mg PO Q6H PRN fever or pain 04/01/24 #30 tabs bisacodyl 5 mg tablet,delayed 10 mg (2 x 5 mg) PO BEDTIME 2 days 07/01/24 release (Dulcolax (bisacodyl)) #4 tabs peg 3350-electrolytes 236 240 ml PO Q10M 1 day #4,000 mL 07/01/24 gram-22.74 gram-6.74 gram-5.86 gram solution (Golytely) oxycodone 5 mg tablet 5 mg PO BID PRN pain #6 tabs 09/02/24 Allergies Allergy/AdvReac Type Severity Reaction Status Date / Time sertraline AdvReac Unknown sexual Verified 09/02/24 04:42 side effects Review of Systems Review of Systems: Constitutional : No Weight loss, No Fever, No Chills, No Night Sweats, No Fatigue, No Malaise ENT/Mouth : No Hearing loss, No Ear Pain, No Nasal Congestion, No Sinus Pain, No Hoarseness, No sore throat, No Rhinorrhea, No Swallowing Difficulty Eyes: No Eye Pain, No Swelling, No Redness, No Foreign Body, No Discharge, No Vision Changes Cardiovascular : No Chest Pain, No SOB, No Dyspnea on Exertion, No Orthopnea, No Edema, No Palpitations Respiratory : Complaining of right-sided chest pain/while pain No Cough, No Sputum, No Wheezing, No Smoke Exposure, No Dyspnea Gastrointestinal : No Nausea, No Vomiting, No Diarrhea, No Constipation, No abdominal Pain, No Hematochezia, No Melena Genitourinary : no irregular bleeding, No Dysuria, No Urinary Frequency, No Hematuria, No Urinary Incontinence, No Urgency, No Flank Pain, No Urinary Flow Changes, No Hesitancy Musculoskeletal : Complaining of abdominal wall pain on the abdomen No joint pain, No Myalgias, No Joint Swelling Skin : No Skin Lesions, No rash Neuro : No Weakness, No Numbness, No Paresthesias, No Loss of Consciousness, No Dizziness, No Headache Psych : No Anxiety/Panic, No Depression, No SI/HI/AH/VH, No Social Issues, Heme/Lymph: No Bruising, No Bleeding,No Lymphadenopathy Endocrine : No Polyuria, No Polydipsia, No Temperature Intolerance [facility] Past Medical History Medical History Pre-op examination Abnormal ultrasound of liver Hospital discharge follow-up Jaw fracture Jaw clicking Family History Family History Father Colon cancer Depression Brother Depression Other FH: mental illness Substance abuse Social History Social History Housing: Apartment Alcohol intake: current Alcohol intake frequency: 3 or more drinks per day Patient Tobacco Use Status: Former Tobacco user Years Smoked: 20 Smoked in Last 30 Days: Yes e-Cigarette/Vaping Use: Never Used Second Hand Smoke Exposure: No Use of substances other than those prescribed or required for medical reasons: No Substance Use Type: Crack/Cocaine Advance Directives: No Do you have a plan to hurt others: No Plan service: No Current occupational status: employed 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 Oriented X3. No acute distress. Eyes: Pupils equal, round and reactive to light. ENT: Pharynx normal. Neck: Normal inspection. Neck supple. No lymph nodes noted. No crepitus CVS: Normal heart rate and rhythm. Pulses normal. Normal S1 and S2 Respiratory: No respiratory distress. Breath sounds normal. No Wheezing. No rales Abdomen: Soft and nontender. No rigidity. No distention. Skin: Skin warm and dry. Normal skin color. Normal skin turgor. The incision looks clean, no signs of erythema, no drainage, no blood. Reproducible pain to palpation over the area of the surgical incision. Extremities: No lower extremity edema. No Lacerations. No Rash Neuro: Oriented X 3. No motor deficit. No sensory deficit. Moving all extremities. No slurred speech. CN 2 through 12 grossly intact Psych: calm, cooperative, normal affect Medications Administered Discontinued Medications Generic Name Dose Route Start Last Admin Trade Name Gaganq PRN Reason Stop Dose Admin Oxycodone HCl 5 mg 09/02/24 05:29 09/02/24 05:38 Oxycodone Hcl Immed Release 5 Mg Tablet PO 09/02/24 05:30 5 mg ONCE ONE Administration Medical Decision Making Medical Decision Making [facility] Narrative: My interpretation of labs: Patient's white blood cell count 15.8, expected status post liver biopsy. No fever or chills, no infection. Patient's chemistry and LFTs within normal limits. -my interpretation of chest x-ray: No obvious abnormality, no infiltrates or pneumothorax -my interpretation of CT scan of the abdomen, no obvious abnormality. -radiology report confirms that there is no acute abnormality. -patient's pain improved with p.o. oxycodone, likely secondary to the surgery. Differential Diagnosis Differential Diagnoses: The differential diagnosis associated with the presentation includes (As above) Admission/Observation Consideration of admission/observation: Escalation of care including admission/observation considered (Given patient's history of procedure, presentation, observation was considered.) Lab Data [facility] Lab Attestation statement: I reviewed the patient's lab results. 09/02/24 05:54 09/02/24 05:54 Labs: Lab Results 09/02/24 Range/Units 05:54 WBC 15.8 H (4.8-10.8) X10*3/uL RBC 4.78 (4.60-5.80) X10*6/uL Hgb 16.4 (14.0-18.0) g/dl Hct 46.8 (42.0-52.0) % MCV 97.9 (80.0-98.0) fL MCH 34.3 H (27.0-33.0) pg MCHC 35.0 (31.0-36.0) g/dl RDW 12.0 (11.0-16.0) % Plt Count 201 (160-400) X10*3/uL MPV 9.0 L (9.4-12.4) fL Immature Gran % (Auto) 0.4 (0.0-0.4) % Neut % (Auto) 77.1 H (45-73) % Lymph % (Auto) 12.0 L (20-40) % [place] % (Auto) 8.6 (2-11) % Eos % (Auto) 1.6 (0-4) % Baso % (Auto) 0.3 (0-2) % Lymph # (Auto) 1.9 (1.2-4.9) X10*3/uL [place] # (Auto) 1.4 H (0.1-1.2) X10*3/uL Eos # (Auto) 0.3 (0.0-0.4) X10*3/uL Baso # (Auto) 0.1 (0.0-0.2) X10*3/uL Abs Immat Gran (auto) 0.07 H (0.00-0.03) X10*3/uL Absolute Neuts (auto) 12.2 H (2.0-8.3) x10*3/uL Absolute Nucleated RBC 0.000 (0.0-0.012) X10*3/uL Nucleated RBC % (auto) 0.0 (0.0-0.2) /100WBC Sodium 137 (135-145) mmol/L Potassium 3.9 (3.3-5.1) mmol/L Chloride 104 (96-108) mmol/L Carbon Dioxide 25 (22-29) mmol/L Anion Gap 12 (12-20) BUN 12 (9-16) mg/dL Creatinine 0.97 (0.5-1.4) mg/dL Estim Creat Clear Calc 109.7 Estimated GFR > 60 Random Glucose 125 H (60-115) mg/dL Calcium 8.9 (8.4-10.2) mg/dL Total Bilirubin 1.2 H (0.0-1.0) mg/dL Direct Bilirubin 0.3 (0.0-0.5) mg/dL AST 41 H (5-37) U/L ALT 77 H (0-40) U/L Alkaline Phosphatase 83 (39-117) U/L Total Protein 7.2 (6.5-8.0) g/dL Albumin 4.0 (3.5-5.0) g/dL Independent Interpretation I performed an independent interpretation of an: Plain X-Ray and CT Scan Radiology Impression Discussion of test interpretation with radiology: I have reviewed the radiologist's reading. Radiologist Impression: FINDINGS: There is no gross pneumothorax. Heart size is normal. Lung volumes are low. No pleural effusion. Mild prominence of the vasculature with perihilar peribronchial cuffing. XR/XR chest 1V IMPRESSION: Mild prominence of the vasculature with perihilar peribronchial cuffing. Low lung volumes. *No acute abnormalities. No abnormal perihepatic fluid collections. No focal parenchymal lesions of the liver or subcapsular fluid collections of the liver. Normal appearance of the anterior abdominal wall. No free intraperitoneal fluid or gas collections. *Diffuse hepatic steatosis. Critical Care Time Critical Care Time Critical Care Time: Yes Total Critical Care Time: 30 Attestation: I have personally provided critical care time. Time includes review of lab data, radiology results, discussion with consultants, and monitoring for potential decompensation. Intervention performed as documented. Discharge Plan Discharge Clinical Impression: Postoperative pain Patient Disposition: Home, Self-Care Instructions: Pain Management (ED) Additional Instructions: Please follow-up with your primary care physician tomorrow. If you have any worsening or new symptoms, please return to the emergency room or call 911 Prescriptions: New oxycodone 5 mg tablet 5 mg PO BID PRN (Reason: pain) Qty: 6 0RF Rx Instructions: Partial Fill upon patient request. No Action ibuprofen 600 mg tablet 600 mg PO Q6H PRN (Reason: fever or pain) Qty: 30 0RF peg 3350-electrolytes [Golytely] 236-22.74-6.74 -5.86 gram recon soln 240 ml PO Q10M 1 Days Qty: 4000 0RF Rx Instructions: until fecal effluent is clear; do not exceed a total volume of 2,000 mL bisacodyl [Dulcolax (bisacodyl)] 5 mg tablet,delayed release (DR/EC) 10 mg PO BEDTIME 2 Days Qty: 4 0RF Print Language: Haitian
[2024-09-02 07:51] VITALS: BP 158/98; PULSE 88; RESP 16; TEMP 36.8; O2SAT 96
== END 2024-09-02 07:56 | disposition home or self-care (01) ==
PROVIDERS: Emergency Provider Emergency Medicine
DX: G89.18 Other acute postprocedural pain (principal); R10.11 Right upper quadrant pain; R06.02 Shortness of breath; R07.9 Chest pain, unspecified
CPT/HCPCS: 36415; 71045; 74176; 80048; 80076; 85025; 99284

== ENCOUNTER 2024-11-05 09:58 | Day surgery (SDC) | payer OTHER, SELFPAY ==
[2024-11-02 13:31] VITALS: BMI 29.1
--- NOTE | 2024-11-03 09:14 | P.CONAN_ITS ---
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) Transaminitis (Acute) Elevated ferritin (Acute) Suspected Lyme disease (Acute) MDD (major depressive disorder), recurrent episode (Acute) Family hx of colon cancer (Acute) EtOH dependence (Acute) Past Medical History Medical History (Updated 11/02/24 @ 13:30 by Yanique Longo RN) Adams's palsy Depression Hemochromatosis Jaw fracture Jaw clicking Abnormal ultrasound of liver Hospital discharge follow-up Family History Family History Father Colon cancer Depression Brother Depression Other FH: mental illness Substance abuse Surgical History Surgical History (Updated 11/02/24 @ 13:32 by Yanique Longo RN) Surgical history unknown Social History Social History Housing: Apartment Alcohol intake: current Alcohol intake frequency: 3 or more drinks per day Patient Tobacco Use Status: Former Tobacco user Years Smoked: 20 e-Cigarette/Vaping Use: Never Used Second Hand Smoke Exposure: No Substance Use Type: Crack/Cocaine service: No Current occupational status: employed 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
[2024-11-05 10:10] VITALS: BMI 28.4
[2024-11-05] MEDS: Lactated Ringers 1,000 ML 100 ML IVCONT (10:42)
--- NOTE | 2024-11-05 10:45 | MHC.SHP ---
Pre-Procedural Eval Section A - 24 Hr Update-Section A only Date of Service: 11/05/24 Section B - Complete if H&P > 30 days Chief Complaint: Alcohol use disorder, fam hx of CRC Details of Present Illness: PMX Alcohol use disorder Depression Elevated ferritin Lyme disease [place] palsy Smoker 1 pk [id number] * SURGICAL HISTORY Jaw wiring for fx * ALLERGIES Sertraline s/e ED * Present Medications: see Short Stay Collaborative assessment Allergies: Allergies Allergy/AdvReac Type Severity Reaction Status Date / Time sertraline AdvReac Unknown sexual Verified 11/05/24 10:32 side effects Review of Systems Review of Systems Comment: Ten point ROS negative Exam Exam Comment: Gen appear: No acute distress HEENT: no icterus Chest: No overt resp distress Abd: soft, nontender, nondistended Psych: Stable affect, answering questions appropriately Neuro: A/Ox3 noted to move all extremities spontaneously Ext: no peripheral edema Plan Diagnosis/Plan: Unchanged I have reviewed the history and physical and performed a pertinent physical examination on my patient. No changes have occurred unless specified. Time Spent With Patient Time: Total time managing care of this patient today ____ minutes.
--- NOTE | 2024-11-05 11:14 | P.OPN-COLO_ITS ---
Colonoscopy Operative Note Operative Note Date of Service: 11/05/24 Narrative: Procedure: Upper endoscopy and colonoscopy Indication: Liver disease, fam hx of CRC Endoscopist: Dorina Botello MD Anesthesia Provider: Herminia Mendoza MD Anesthesia type: MAC Instrument: [id number] and [id number] EGD Procedure:?? The procedure, indications, preparation and potential complications were reviewed with the patient, who indicated understanding and gave written informed consent to proceed. The endoscope was introduced through the mouth, and advanced to the 2nd part of the duodenum. The mucosa was carefully examined on slow withdrawal of the endoscope. The patient tolerated the procedure well. There were no immediate complications.? EGD Findings:? * Esophagus:?Erythema and erosions measuring 10 mm but not crossing the tops of the mucosa folds at GE junction at 40 cm. No varices were noted. * Stomach:? Normal gastric mucosa. Retroflexion was performed in the cardia. * Duodenum:? Normal duodenal mucosa. Colonoscopy Procedure:? The patient was then turned for the colonoscopy. A digital rectal exam was performed which was normal.? A distal attachment cap was affixed to the tip of the scope and the colonoscope was then inserted through the anus and advanced through the colon and advanced to the cecum at 75 cm and terminal ileum.? Appendiceal orifice and ileocecal valve were identified. Mucosa was carefully examined under high definition white light as the instrument was slowly withdrawn in a retrograde panoramic fashion. Retroflexion was performed in rectum. The procedure was not difficult. The quality of the prep was BBPS: 2+2+2 = adequate Withdrawal time 7 minutes Limitations: No limitations Findings: Mucosa: Normal colon and terminal ileum mucosa. Protruding lesions: * Medium internal hemorrhoids without stigmata of recent bleeding. Impression: 1. Normal esophagus 2. Normal stomach 3. Normal duodenum 4. Normal colon and terminal ileum mucosa 5. Internal hemorrhoids Recommendations:?? * No stigmata of chronic liver disease on upper endoscopy - congruent with F1 biopsy results * Repeat colonoscopy in 5 years due to family history and prep * Pt counseled for abstinence from etOH use which is likely causing hyperferritinemia as well
[2024-11-05 11:16] VITALS: BP 100/62; PULSE 100; RESP 16; TEMP 37.1; O2SAT 96
[2024-11-05 11:31] VITALS: BP 128/93; PULSE 98; RESP 16; O2SAT 96
[2024-11-05 11:39] VITALS: BP 128/93; PULSE 102; RESP 17; TEMP 36.7; O2SAT 96
--- NOTE | 2024-11-05 11:49 | HO.ANESPROP2 ---
[facility] Active Problems Active Problems: All Active Problems Hemochromatosis associated with mutation in HFE gene (Acute) Transaminitis (Acute) Elevated ferritin (Acute) Suspected Lyme disease (Acute) MDD (major depressive disorder), recurrent episode (Acute) Family hx of colon cancer (Acute) EtOH dependence (Acute) Past Medical History Medical History Adams's palsy Depression Hemochromatosis Jaw fracture Jaw clicking Abnormal ultrasound of liver Hospital discharge follow-up Functional capacity: independent ambulation Family History Family History Father Colon cancer Depression Brother Depression Other FH: mental illness Substance abuse Family history of problems with anesthesia: No Surgical History Surgical History Surgical history unknown History of Problems with Anesthesia: No Social History Social History Housing: Apartment Are you a primary cardiac care unit nurse to a significant other at home: No Do you presently have visiting nurse or other home services: No Alcohol intake: current Alcohol intake frequency: 3 or more drinks per day Patient Tobacco Use Status: Current everyday Tobacco user Cigarettes Per Day: 3 Years Smoked: 20 e-Cigarette/Vaping Use: Never Used Second Hand Smoke Exposure: No Use of substances other than those prescribed or required for medical reasons: Yes Substance Use Type: Crack/Cocaine Substance Use Type Other:: every few months per pt Substance Use Frequency: Monthly Have you been hit, kicked, punched, or otherwise hurt by someone within the past year? 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 Current occupational exposures/hazards: No Cognitive needs: No Hearing needs: No Vision needs: No Meds Allergies Allergy/AdvReac Type Severity Reaction Status Date / Time sertraline AdvReac Unknown sexual Verified 11/05/24 10:32 side effects Active Medications: Current Medications Lactated Ringer's (Lr) 1,000 mls @ 100 mls/hr IVCONT .Q10H JERILYN Last Admin: 11/05/24 10:42 Dose: 100 mls/hr Exam Height,Weight and Vital Signs: Height 5 ft 9 in Weight 87.09 kg Last Vital Signs Temp 98.0 F 11/05/24 11:39 Pulse 102 H 11/05/24 11:39 Resp 17 11/05/24 11:39 BP 128/93 H 11/05/24 11:39 Pulse Ox 96 11/05/24 11:39 O2 Del Method Room Air 11/05/24 11:39 Airway Mallampati Class: II TM Dist: >3cm Neck ROM: Full Heart: RRR Lungs: CTA Assessment and Plan Assessment Anesthesia Assessment: Anesthesia Plan Discussed, Smoking Cess. Discussed and Chart Reviewed Final Anesthetic Review Family History of Problems with Anesthesia: No History of Problems with Anesthesia: No NPO: Yes ASA Class: II Final Preanesthetic Review: Meds/Allgs Chart Reviewed, Consent Obtained/Reviewed and Anes Risks/Benef Reviewed Patient Risk: Low Procedure Risk: Low Anesthetic Plan Anesthetic Plan: MAC: Disposition: Standard PACU
--- NOTE | 2024-11-05 11:51 | HO.POSTANES ---
Post Anesthesia Evaluation Post Anesthesia Evaluation Date of Service: 11/05/24 Vital Signs: Vital Signs Temp Pulse Resp BP Pulse Ox O2 Del Method 11/05/24 11:39 98.0 F 102 H 17 128/93 H 96 Room Air 11/05/24 11:31 98 16 128/93 H 96 Room Air 11/05/24 11:16 98.8 F 100 16 100/62 96 Room Air Anesthesia: Monitored Mental Status: Awake Pain Control: Satisfactory Nausea/Vomiting: None Hydration: Adequate Anesthesia-Related Issues: No Anes. Related Issues
== END 2024-11-05 12:08 | disposition home or self-care (01) ==
PROVIDERS: PCP Nurse Practitioner Family; Visit Provider Internal Medicine
PROC: (CPT 45378; principal; 2024-11-05 11:00)
DX: Z12.11 Encounter for screening for malignant neoplasm of colon (principal); Z80.0 Family history of malignant neoplasm of digestive organs; E83.110 Hereditary hemochromatosis; K70.0 Alcoholic fatty liver; F10.20 Alcohol dependence, uncomplicated; R79.89 Other specified abnormal findings of blood chemistry; R74.01 Elevation of levels of liver transaminase levels; F32.A Depression, unspecified; G51.0 Bell's palsy; Z88.8 Allergy status to other drugs, medicaments and biological substances; Z87.891 Personal history of nicotine dependence
CPT/HCPCS: 45378; 43235; J2003; J2704

== ENCOUNTER → 2024-11-05 09:58 | Outpatient (BNV) | payer OTHER, SELFPAY | PROVIDERS: PCP Nurse Practitioner Family; Visit Provider Internal Medicine | DX: Z12.11 Encounter for screening for malignant neoplasm of colon (principal); Z80.0 Family history of malignant neoplasm of digestive organs; K64.8 Other hemorrhoids; K76.9 Liver disease, unspecified | CPT/HCPCS: 43235; 45378 ==

== ENCOUNTER 2025-06-11 13:25 | Outpatient (AMB) | payer SELFPAY ==
--- NOTE | 2025-06-11 13:29 | MHC.PC.OV ---
Vital Signs 06/11/25 13:33 Height 5 ft 9 in Weight 188 lb BMI 27.8 BP 156/106 H Blood Pressure Location Lt brachial Position Sitting Respiration 14 Pulse 105 H Pulse Source Pulse Oximeter Temp 98.7 F Temp Source Oral Pulse Oximetry (%) 96 Oxygen Delivery Method Room Air Intake Visit Reasons: toothache Intake Note: Was supposed to get tooth pulled with [facility] in [place], but bp was too high. Went to [facility] ER yesterday. Pt believes its from drinkign too much whiskey to sooth tooth pain [employer] Required: No Allergies sertraline Adverse Reaction (Unknown, Verified 06/11/25 13:31) sexual side effects Tobacco use date assessed: 06/11/25 Dental Screening Dental Screen Date: 06/11/25 Did you have a dental visit in the last 12 months?: Yes Did you have a dental problem in the last 6 months where you did not have access to dental care?: Yes Was dental information given to patient?: Patient has dentist HPI HPI Comments History of Present Illness Details 40 year old with depression, etoh use, HH, presenting for toothache, high blood pressure Patient was recently scheduled for dental extraction. Unfortunately blood pressure was too high and the procedure was cancelled. [facility]. Will now need blood pressure improved and preoperative clearance priro to rescheduling. Blood pressure continues to be elevated today. Patient is currently using otc medications and alcohol for any tooth related pain. ROS see HPI PHYSICAL EXAM: GENERAL: Alert and oriented x 3. NAD EYES: EOMI. Anicteric. HENT: Moist mucous membranes. No scleral icterus. No cervical lymphadenopathy. LUNGS: Clear to auscultation bilaterally. CARDIOVASCULAR: tachycardia. No murmur appreciated. No JVD. ABDOMEN: Soft, non-tender +bs EXTREMITIES: No edema. Non-tender. SKIN: No rashes or lesions. Warm. NEUROLOGIC: No focal neurological deficits. CN II-XII grossly intact PSYCHIATRIC: Cooperative. Appropriate mood and affect [facility] Medical History Adams's palsy Depression Hemochromatosis Jaw fracture Jaw clicking Abnormal ultrasound of liver Hospital discharge follow-up Surgical History Surgical history unknown Family History Father Colon cancer Depression Brother Depression Other FH: mental illness Substance abuse Social History Housing: Apartment Are you a primary women's health care nurse practitioner to a significant other at home: No Do you presently have visiting nurse or other home services: No Alcohol intake: current Alcohol intake frequency: 3 or more drinks per day Patient Tobacco Use Status: Current someday Tobacco user (1 cigarette a month) Cigarettes Per Day: 3 Years Smoked: 20 e-Cigarette/Vaping Use: Never Used Second Hand Smoke Exposure: No Substance Use Type: Crack/Cocaine service: No Current occupational status: employed Current occupation: [employer] Current occupational exposures/hazards: No Cognitive needs: No Hearing needs: No Vision needs: No Questionnaire PHQ-9 Over the last 2 weeks, how often have you been bothered by any of the following problems? 1. Little interest or pleasure in doing things: several days 2. Feeling down, depressed, or hopeless: several days 3. Trouble falling or staying asleep, or sleeping too much: several days 4. Feeling tired or having little energy: several days 5. Poor appetite or overeating: several days 6. Feeling bad about yourself - or that you are a failure or have let yourself or your family down: not at all 7. Trouble concentrating on things, such as reading the newspaper or watching television: several days 8. Moving or speaking so slowly that other people could have noticed. Or the opposite - being so fidgety or restless that you have been moving around a lot more than usual: not at all 9. Thoughts that you would be better off or of hurting yourself in some way: not at all Total score: 6 Depression Screening Interpretation: Positive Depression Screening Follow-up: Existing condition Depression Screening Done: Yes 24338 - PHQ-9 Billing: Yes Source: Developed by Drs. Sarthak Ceballos, Kiesha Singh, Bennett Armando and colleagues, with an educational roberto from [employer]. Thrive Questionnaire Date Thrive assessed: 04/07/24 I am a: Patient What is your living situation today?: I have a steady place to live Within the past 12 months, did the food you bought not last and you didn't have the money to get more?: Never true Within the past 12 months, did you worry whether your food would run out before you got money to buy more?: Never true Do you have trouble paying for medicines?: No Do you have trouble getting transportation to medical appointments?: No Do you have trouble paying your heating and electricity bill?: No Do you have trouble taking care of your child, family member or friend?: No Do you have trouble with day-to-day activities such as bathing, preparing meals, shopping, managing finances, etc.?: No Are you currently unemployed and looking for a job?: No Are you interested in more education?: Yes Please select the resources that you would like help with: Job search/training Currently or been in a relationship where the following occur: No concerns reported THRIVE Score: 0 AUDIT C Alcohol Use Questionnaire (AUDIT-C) 1. How often do you have a drink containing alcohol?: 4 or more times a week 2. How many drinks containing alcohol do you have on a typical day when you are drinking?: 10 or more 3. How often do you have six or more drinks on one occasion?: Daily or almost daily Total Score: 12 RUIZ-7 AMB Questionnaire RUIZ-7 Date RUIZ - 7 assessed: 04/07/24 Feeling nervous, anxious, or on edge: 1 = Several days Not being able to stop or control worryin = Several days Worrying too much about different things: 1 = Several days Trouble relaxin = Several days Being so restless that it is hard to sit still: 1 = Several days Becoming easily annoyed or irritable: 1 = Several days Feeling afraid as if something awful might happen: 1 = Several days Total RUIZ-7 score (0-4 normal; 5-9 mild; 10-14 moderate; 15-21 severe): 7 Source: Developed by Drs. Sarthak Ceballos, Kiesha Singh, Bennett Armando and colleagues, with an educational roberto from [employer]. Physical exam (Primary Care) Vital Signs: Last Vital Signs Temp 98.7 F 06/11/25 13:33 Pulse 105 H 06/11/25 13:33 Resp 14 06/11/25 13:33 BP 156/106 H 06/11/25 13:33 Pulse Ox 96 06/11/25 13:33 Oxygen Delivery Method Room Air 06/11/25 13:33 BMI result Body Mass Index 27.8 Tobacco/Smoking Status: Tobacco use Status Tobacco use date assessed 06/11/25 06/11/25 13:34 Patient Tobacco Use Status Current someday Tobacco (1 06/11/25 13:34 cigarette a month) e-Cigarette/Vaping Use Never Used 06/11/25 13:31 PHQ-9: PHQ-9 Score PHQ-9: Total score 6 06/13/25 20:00 Depression Screening Interpretation: Positive Depression Screening Follow-up: Existing condition Thrive Assessment: Date of Thrive Assessment Date Thrive assessed 04/07/24 06/11/25 13:31 Currently or been in a relationship where the following occur: No concerns reported Coding Level of Care Code Est Pt Level 4 (22428) Diagnoses Primary hypertension I10 Hypertension type: primary hypertension Extraction of tooth needed K08.9 Additional Codes PHQ-9 - 50833 - PHQ-9 Billing: Yes ([id number]) Assessment & Plan Assessment & Plan (1) Hypertension: Code(s): I10 - Essential (primary) hypertension Category: Medical Qualifiers: Hypertension type: primary hypertension Qualified Code(s): I10 - Essential (primary) hypertension (2) Extraction of tooth needed: Code(s): K08.9 - Disorder of teeth and supporting structures, unspecified Category: Medical Plan 40 year old for hypertension, tooth pain Start atenolol 25mg daily Vicodine sent Reevaulate 3-4 days for bp control/preop clearance Medications: New atenolol 25 mg PO DAILY 90 tabs 0RF hydrocodone-acetaminophen 7.5-325 mg Partial Fill upon patient request. 1 tab PO Q4-6H PRN 20 tabs 0RF pain
[2025-06-11 13:33] VITALS: BP 156/106; PULSE 105; RESP 14; TEMP 37.1; O2SAT 96; BMI 27.8
== END 2025-06-11 13:49 | disposition home or self-care (01) ==
LOC: HO.HMCFM 13:25
PROVIDERS: PCP Nurse Practitioner Family; Visit Provider Internal Medicine
DX: I10 Essential (primary) hypertension (principal); K08.9 Disorder of teeth and supporting structures, unspecified

== ENCOUNTER → 2025-06-11 13:25 | Outpatient (BNVA) | payer SELFPAY | PROVIDERS: PCP Nurse Practitioner Family; Visit Provider Internal Medicine | DX: I10 Essential (primary) hypertension (principal); K08.9 Disorder of teeth and supporting structures, unspecified | CPT/HCPCS: 96127; 99212 ==

== ENCOUNTER 2025-07-09 15:30 | Emergency (ER) | payer SELFPAY ==
[2025-07-09 15:54] VITALS: BP 141/102; PULSE 92; RESP 18; TEMP 36.8; O2SAT 96; BMI 27.0
--- NOTE | 2025-07-09 15:55 | ED.GENADULT ---
HPI - General Adult General Chief complaint: ETOH/Substance Use Stated complaint: ETOH Withdrawal Time Seen by Provider: 07/09/25 18:30 Source: patient and old records reviewed Mode of arrival: ambulatory Limitations: no limitations History of Present Illness ED Provider: DEEDEE RANDHAWA narrative: 40 yo male with PMH Of ETOH use disorder, hemochromatosis, HTN who notes he drinks about 20 drinks a day between nips and beer he has been cutting down for the past 2 weeks and states he feels terrible. he has nausea and shakes. He has no prior seizures. He has not been to a detox in 6 months. He is really interested in [facility] in [place]. He denies head trauma, GIB, SI/HI. MD complaint: ETOH withdrawal Onset (ago): week(s) (2) Radiation: non-radiation Severity: moderate Relieving factors: none Exacerbating factors: eating Associated symptoms: nausea/vomiting Treatments prior to arrival: none Related Data Previous Rx's ?Medication ?Instructions ?Recorded atenolol 25 mg tablet 25 mg PO DAILY #90 tabs 06/11/25 hydrocodone 7.5 mg-acetaminophen 1 tab PO Q4-6H PRN pain #20 tabs 06/17/25 325 mg tablet Allergies Allergy/AdvReac Type Severity Reaction Status Date / Time sertraline AdvReac Unknown sexual Verified 07/09/25 15:56 side effects Review of Systems Review of Systems: Constitutional : No Fever, No Chills, No Fatigue ENT/Mouth : No sore throat, No Rhinorrhea Eyes: No Eye Pain, No Swelling, No Redness Cardiovascular : No Chest Pain, No SOB, No Dyspnea on Exertion Respiratory : No Cough, No Sputum Gastrointestinal : pos Nausea, pos Vomiting, No Diarrhea, No abdominal Pain Genitourinary : No Dysuria, No Urinary Frequency, No Hematuria, Musculoskeletal : No joint pain, No Myalgias, No Joint Swelling Skin : No Skin Lesions, No rash Neuro : No Weakness, No Numbness, No Dizziness, no Headache Psych : No Anxiety/Panic, No Depression All other systems reviewed and are negative [facility] Past Medical History Attestation statement: The following information was validated with the patient. Source: old records reviewed Medical History Adams's palsy Depression Hemochromatosis Jaw fracture Jaw clicking Abnormal ultrasound of liver Hospital discharge follow-up Surgical History Surgical history unknown Family History Family History Father Colon cancer Depression Brother Depression Other FH: mental illness Substance abuse Social History Social History Housing: Apartment Are you a primary personal care attendant to a significant other at home: No Do you presently have visiting nurse or other home services: No Alcohol intake: current Alcohol intake frequency: 3 or more drinks per day Patient Tobacco Use Status: Current someday Tobacco user (1 cigarette a month) Cigarettes Per Day: 3 Years Smoked: 20 e-Cigarette/Vaping Use: Never Used Second Hand Smoke Exposure: No Substance Use Type: Crack/Cocaine Advance Directives: No Advance Directives Information Provided: Yes service: No Current occupational status: employed Current occupation: [employer] Current occupational exposures/hazards: No Cognitive needs: No Hearing needs: No Vision needs: No Physical Exam ED Vital Signs: Vital Signs - 24 hr 07/09/25 15:54 07/09/25 19:03 07/09/25 22:10 Temperature 98.2 F 97.6 F 98.1 F Pulse Rate 92 92 90 Respiratory Rate 18 18 16 Blood Pressure 141/102 H 140/82 H 117/70 Pulse Oximetry 96 92 Oxygen Delivery Method Room Air Room Air Oxygen Flow Rate 98 07/10/25 06:32 07/10/25 10:12 07/10/25 11:48 Temperature 97.4 F 98.2 F Pulse Rate 81 87 80 Respiratory Rate 16 14 18 Blood Pressure 141/84 H 137/88 140/97 H Pulse Oximetry 96 98 96 Oxygen Delivery Method Room Air Room Air Room Air Oxygen Flow Rate BMI result Body Mass Index 27.0 Appearance: Alert. Oriented X3. No acute distress. Eyes: Pupils equal, round and reactive to light. ENT: Pharynx normal. no trauma seen, no tongue fasciculations Neck: Normal inspection. Neck supple. CVS: Normal heart rate and rhythm. Pulses normal. Respiratory: No respiratory distress. Breath sounds normal. Abdomen: Soft and nontender. Skin: Skin warm and dry. Normal skin color. Normal skin turgor. Extremities: No lower extremity edema. No calf ttp Neuro: Oriented X 3. No motor deficit. No sensory deficit. CN2-12 intact no tremors Course Course Course Narrative: This is a rapid medical exam performed by Elinor Muñoz NP: Additional HPI, ROS, PE not included below will be deferred to primary provider. Patient is a 40-year-old male presenting to the ED requesting assistance with detox from alcohol. Last drink was 10 mins ago, one shot of whiskey. Drinks around 15-20 drinks daily, some hard alcohol, some beer. Denies history of withdrawl seizures. Denies other drug use. Also complains of nausea. Plan: EKG, labs Reevaluation(s) Reevaluation #1: currently asleep Time: 07:00 Reevaluation #2: At this point patient would like to leave and figure this out on his own, patient has been ambulatory and overall he is looking well non tremulous Time: 15:19 Medications Administered Generic Name Dose Route Start Last Admin Trade Name Freq PRN Reason Stop Dose Admin Lorazepam 2 mg 07/09/25 19:50 07/09/25 20:47 Lorazepam 1 Mg Tablet PO 2 mg Q3H PRN Administration Alcohol Withdrawal Discontinued Medications Generic Name Dose Route Start Last Admin Trade Name Freq PRN Reason Stop Dose Admin Diazepam 5 mg 07/09/25 18:32 07/09/25 18:49 Diazepam 10 Mg/2 Ml Cartridge IVPUSH 07/09/25 18:33 5 mg STAT STA Administration Lactated Ringer's 1,000 mls @ 999 mls/hr 07/09/25 18:32 07/09/25 21:52 Lr IV 07/09/25 19:32 Infused .Q1H1M ONE Infusion Thiamine HCl 200 mg/ Sodium 102 mls @ 204 mls/hr 07/09/25 18:32 07/09/25 20:00 Chloride IV 07/09/25 19:01 Infused ONCE ONE Infusion Ondansetron HCl 4 mg 07/09/25 21:05 07/09/25 21:21 Ondansetron Hcl 4 Mg/2 Ml Vial IVPUSH 07/09/25 21:06 4 mg ONCE ONE Administration Ondansetron HCl 4 mg 07/10/25 10:51 07/10/25 10:55 Ondansetron Hcl 4 Mg/2 Ml Vial IVPUSH 07/10/25 10:52 4 mg ONCE ONE Administration Medical Decision Making Medical Decision Making MDM Narrative: 40 yo male with PMH of ETOH use disorder no prior seizures, HTN here with c/o wanting to stop drinking he wants detox. He has nausea on exam no tremors or tongue fasciculations will give IV valium and monitor closely. Will discuss with recovery team as well. Differential Diagnosis Differential Diagnoses: The differential diagnosis associated with the presentation includes lyte abnormality, ETOH use disorder Admission/Observation Consideration of admission/observation: Escalation of care including admission/observation considered physician observation pending hopkins in AM per recovery started at 938pm Consult Healthcare Provider Management of the patient was discussed with: Behavioral Health Provider Lab Data [facility] Lab Attestation statement: I reviewed the patient's lab results. 07/09/25 16:13 07/09/25 16:13 Labs: Lab Results 07/09/25 07/09/25 Range/Units 16:13 20:13 WBC 8.9 (4.8-10.8) X10*3/uL RBC 4.89 (4.60-5.80) X10*6/uL Hgb 16.8 (14.0-18.0) g/dl Hct 46.8 (42.0-52.0) % MCV 95.7 (80.0-98.0) fL MCH 34.4 H (27.0-33.0) pg MCHC 35.9 (31.0-36.0) g/dl RDW 13.0 (11.0-16.0) % Plt Count 220 (160-400) X10*3/uL MPV 8.7 L (9.4-12.4) fL Immature Gran % (Auto) 0.2 (0.0-0.4) % Neut % (Auto) 59.6 (45-73) % Lymph % (Auto) 30.0 (20-40) % Moore % (Auto) 7.4 (2-11) % Eos % (Auto) 2.3 (0-4) % Baso % (Auto) 0.5 (0-2) % Lymph # (Auto) 2.7 (1.2-4.9) X10*3/uL Moore # (Auto) 0.7 (0.1-1.2) X10*3/uL Eos # (Auto) 0.2 (0.0-0.4) X10*3/uL Baso # (Auto) 0.0 (0.0-0.2) X10*3/uL Abs Immat Gran (auto) 0.02 (0.00-0.03) X10*3/uL Absolute Neuts (auto) 5.3 (2.0-8.3) x10*3/uL Absolute Nucleated RBC 0.000 (0.0-0.012) X10*3/uL Nucleated RBC % (auto) 0.0 (0.0-0.2) /100WBC Sodium 141 (135-145) mmol/L Potassium 3.8 (3.3-5.1) mmol/L Chloride 104 (96-108) mmol/L Carbon Dioxide 23 (22-29) mmol/L Anion Gap 18 (12-20) BUN 13 (9-16) mg/dL Creatinine 1.01 (0.5-1.4) mg/dL Estim Creat Clear Calc 95.2 Estimated GFR > 60 Random Glucose 128 H (60-115) mg/dL Calcium 8.8 (8.4-10.2) mg/dL Magnesium 2.2 (1.6-2.6) mg/dL Total Bilirubin 1.1 H (0.0-1.0) mg/dL AST 53 H (5-37) U/L ALT 68 H (0-40) U/L Alkaline Phosphatase 91 (39-117) U/L Total Protein 7.8 (6.5-8.0) g/dL Albumin 4.3 (3.5-5.0) g/dL Urine Opiates Screen Not Detected (Not Detect) Ur Buprenorphine Scrn Not Detected (Not Detect) ng/mL Ur Oxycodone Screen Not Detected (Not Detect) ng/mL Urine Methadone Screen Not Detected (Not Detect) ng/mL Urine Fentanyl Screen Not Detected (Not Detect) Ur Barbiturates Screen Not Detected (Not Detect) Ur Phencyclidine Scrn Not Detected (Not Detect) Ur Amphetamines Screen Not Detected (Not Detect) U Benzodiazepines Scrn Not Detected (Not Detect) Urine Cocaine Screen Not Detected (Not Detect) U Marijuana (THC) Screen Not Detected (Not Detect) Ethyl Alcohol 200 mg/dL Independent Interpretation I performed an independent interpretation of an: EKG Interpretation: Rate: 88 Rhythm: NSR [place]: right Normal P waves. Normal YARY. Normal QRS complex. ST T wave : inverted t waves no ALKA qTC: 452 prior studies: no acute ischemia The study has been interpreted contemporaneously by me. . External Record Review External record reviewed: Outpatient record Prescription Management I considered prescription management with: Other Social Determinants Patient?s care significantly limited by Social Determinants of Health including: Problems related to primary support group Discharge Plan Discharge Clinical Impression: Alcohol use disorder Patient Disposition: Home, Self-Care Instructions: Alcohol Use Disorder (ED) Additional Instructions: Alcohol use disorder You were seen in the Emergency Department today for treatment of alcohol use disorder.? You may have been given medications to help with your withdrawal symptoms.? Please do not drink alcohol with them. This is very dangerous and can cause respiratory depression or other adverse reactions depending on the medication. If you would like to cut down or stop your alcohol use please consider calling our outpatient Addiction Treatment office:? [facility] (-[id number]) [address] [place] [id number] You have also been given a list of treatment providers in the area that can assist as well.? If you experience seizures, vomiting blood, black stools, falls, severe headache, chest pain, fevers, trouble breathing, hallucinations or any other concerns you need to call 911 or seek immediate care. Please stay hydrated. Prescriptions: No Action hydrocodone-acetaminophen 7.5-325 mg tablet 1 tab PO Q4-6H PRN (Reason: pain) Qty: 20 0RF Rx Instructions: Partial Fill upon patient request. atenolol 25 mg tablet 25 mg PO DAILY Qty: 90 0RF Print Language: Estonian
--- NOTE | 2025-07-09 15:57 | ECG_ITS ---
Test Reason : ETOH Blood Pressure : */* mmHG Vent. Rate : 88 BPM Atrial Rate : 88 BPM P-R Int : 186 ms QRS Dur : 94 ms QT Int : 374 ms P-R-T Axes : 62 99 49 degrees QTcB Int : 452 ms Normal sinus rhythm Rightward axis Borderline ECG When compared with ECG of 01-Apr-2024 04:08, Vent. rate has decreased by 55 bpm QRS axis Shifted left Referred By: Gela Muñoz Electronically Signed By: Jonny Oliver
[2025-07-09 16:18] LABS: MANUAL DIFF FLAG NO
[2025-07-09 16:28] LABS: Hematocrit 46.8 % (42.0-52.0); Hemoglobin 16.8 g/dl (14.0-18.0); Imm Gran Abs Auto 0.02 X10*3/uL (0.00-0.03); Imm Gran Pct Auto 0.2 % (0.0-0.4); Lymphocytes Absolute Auto 2.7 X10*3/uL (1.2-4.9); Mean Corpuscular HGB Conc 35.9 g/dl (31.0-36.0); Mean Corpuscular Hemoglobin 34.4 pg (27.0-33.0); Mean Corpuscular Volume 95.7 fL (80.0-98.0); NRBC Abs Auto 0.000 X10*3/uL (0.0-0.012); NRBC Pct Auto 0.0 /100WBC (0.0-0.2); Platelet Count 220 X10*3/uL (160-400); Red Blood Count 4.89 X10*6/uL (4.60-5.80); White Blood Count 8.9 X10*3/uL (4.8-10.8)
[2025-07-09 16:32] LABS: Alanine Aminotransferase 68 U/L (0-40); Albumin Level 4.3 g/dL (3.5-5.0); Alkaline Phosphatase 91 U/L (39-117); Anion Gap 18 (12-20); Aspartate Amino Transferase 53 U/L (5-37); Blood Urea Nitrogen 13 mg/dL (9-16); Calcium 8.8 mg/dL (8.4-10.2); Carbon Dioxide 23 mmol/L (22-29); Chloride 104 mmol/L (96-108); Creatinine Clr Calc Pharmacy 95.2; Estimated Glomerular Filt Rate > 60; Magnesium 2.2 mg/dL (1.6-2.6); Potassium 3.8 mmol/L (3.3-5.1); Sodium 141 mmol/L (135-145); Total Protein 7.8 g/dL (6.5-8.0)
--- NOTE | 2025-07-09 18:22 | PC.NURSE ---
called the patient he states he went to to change his pants (incontinence) and is walking back into the ED
[2025-07-09] MEDS: Thiamine HCL 200 MG in 0.9 % Sodium Chloride 100 ML 204 MG IV (18:47)
[2025-07-09] MEDS: diazePAM 10 MG/2 ML CARTRIDGE 5 MG IVPUSH (18:49)
[2025-07-09] MEDS: Lactated Ringers 1,000 ML 999 ML IV (18:49)
[2025-07-09 19:03] VITALS: BP 140/82; PULSE 92; RESP 18; TEMP 36.4; O2SAT 92
--- NOTE | 2025-07-09 19:39 | PC.NURSE ---
pt seeking detox and help to stop drinking, daily drinker of 20+ nips, pt CIWA at 3, [id number] at bedside discussing rehab facilities.
[2025-07-09 20:30] LABS: Cannabinoid Screen Urine Not Detected (Not Detect)
--- NOTE | 2025-07-09 20:49 | PC.NURSE ---
pt medicated per MAR
--- NOTE | 2025-07-09 21:11 | MHC.CARE ---
Addendum entered by Kayla Lorenz LCSW 07/09/25 21:19: The below information was discussed with Pt and he expresses he would like to stay in the ED overnight for possible admit to [facility] tomorrow. Pt is informed that securing a bed is not guaranteed, however that the CARE Team will F/U on the referral in the morning. [facility] was also discussed in case a bed is not secured tomorrow. Pt verbalized understanding. Discussed with ED provider who is in agreement. Original Note: CARE team met with Pt who is seeking ATS for alcohol use/ concern of withdrawal. Pt was agreeable to a referral to [facility] as he is uninsured at this time. Referral was faxed/emailed to [facility]. Rosalee at [facility] confirms that the referral was recieved, however there are no male beds tonight and they are at full capacity. Rosalee expresses that at this point Pt's case will not be reviewed until the AM of 07/10, however has started a SMART sheet for him for the team to review if there is bed availibity tomorrow. She suggests that CARE Team reach out to them in the AM to inquire status of referral if Pt remains in the ED.
--- NOTE | 2025-07-09 22:07 | PC.NURSE ---
care tea advised there was no available beds at [facility] but may be something tomorrow, pt was advised and [facility]. Pt resting comfortably.
[2025-07-09 22:10] VITALS: BP 117/70; PULSE 90; RESP 16; TEMP 36.7
[2025-07-10 06:32] VITALS: BP 141/84; PULSE 81; RESP 16; TEMP 36.3; O2SAT 96
--- NOTE | 2025-07-10 06:42 | PC.NURSE ---
pt resting, CIWA 0, pt denies withdrawal symptoms at this time.
--- NOTE | 2025-07-10 07:52 | PC.NURSE ---
Assumed care of patient. Pt is Calm, cooperative, resting with his eyes closed. No visible s/s of distress. Pt seen ambulating to the bathroom about 30 min ago. RR even and unlabored.
--- NOTE | 2025-07-10 08:54 | MHC.CARE ---
patient is currently in review w/ nursing at [facility].
[2025-07-10 10:12] VITALS: BP 137/88; PULSE 87; RESP 14; O2SAT 98
--- NOTE | 2025-07-10 10:15 | PC.NURSE ---
Pt is calm, cooperative, A+Ox4. Pt c/o some nausea after breakfast but no other complaints at this time. RR even and unlabored, denies CP or SOB.
--- NOTE | 2025-07-10 11:33 | PC.NURSE ---
Ash[facility] salamanca called and talked to patient, they are still trying to figured out the insurance situation so they said they will call back.
[2025-07-10 11:48] VITALS: BP 140/97; PULSE 80; RESP 18; TEMP 36.8; O2SAT 96
[2025-07-10 15:27] VITALS: BP 131/99; PULSE 96; RESP 16; TEMP -17.7; TEMP 0; O2SAT 96
== END 2025-07-10 15:32 | disposition home or self-care (01) ==
PROVIDERS: Registered Nurse Emergency; Emergency Provider Emergency Medicine; PCP Nurse Practitioner Family
DX: F10.90 Alcohol use, unspecified, uncomplicated (principal); Y90.9 Presence of alcohol in blood, level not specified; I10 Essential (primary) hypertension; E83.119 Hemochromatosis, unspecified
CPT/HCPCS: 36415; 80053; 80307; 83735; 85025; 93005; 96361; 96365; 96375; 96376; 99285; J2405; J3360; J3411; J7120; S9485

== ENCOUNTER → 2025-07-09 15:57 | Outpatient (BNV) | payer SELFPAY | PROVIDERS: Emergency Provider Emergency Medicine; PCP Nurse Practitioner Family; Visit Provider Internal Medicine Cardiovascular Disease | DX: F10.939 Alcohol use, unspecified with withdrawal, unspecified (principal) | CPT/HCPCS: 93010 ==

== ENCOUNTER 2025-08-15 12:42 | Emergency (ER) | payer MEDICAID, SELFPAY ==
[2025-08-15 12:51] VITALS: BP 140/94; PULSE 88; RESP 18; TEMP 36.5; O2SAT 98; BMI 27.0
--- NOTE | 2025-08-15 12:51 | ED_ITS ---
HPI - General Adult General Chief complaint: Dizziness Stated complaint: dizzy,lightheaded,numbness left arm Time Seen by Provider: 08/15/25 14:12 Related Data Previous Rx's ?Medication ?Instructions ?Recorded atenolol 25 mg tablet 25 mg PO DAILY #90 tabs 06/28 hydrocodone 7.5 mg-acetaminophen 1 tab PO Q4-6H PRN pa in #20 tabs 06/17/25 325 mg tablet Allergies Allergy/AdvReac Type Severity Reaction Status Date / Time sertraline AdvReac Unknown sexual Verified 08/15/25 12:53 side effects PMFSH Past Medical History Medical History Adams's palsy Depression Hemochromatosis Jaw fracture Jaw clicking Abnormal ultrasound of liver Hospital discharge follow-up Surgical History Surgical history unknown Family History Family History Father Colon cancer Depression Brother Depression Other FH: mental illness Substance abuse Social History Social History Housing: Apartment Are you a primary child care centre manager to a significant other at home: No Do you presently have visiting nurse or other home services: No Alcohol intake: current Alcohol intake frequency: 3 or more drinks per day Patient Tobacco Use Status: Current someday Tobacco user (1 cigarette a month) Cigarettes Per Day: 3 Years Smoked: 20 e-Cigarette/Vaping Use: Never Used Second Hand Smoke Exposure: No Substance Use Type: Crack/Cocaine Advance Directives: No Advance Directives Information Provided: No Do you have a plan to hurt others: No Plan service: No Current occupational status: employed Current occupation: [employer] Current occupational exposures/hazards: No Cognitive needs: No Hearing needs: No Vision needs: No Physical Exam ED Vital Signs: Vital Signs - 24 hr 08/15/25 12:51 Temperature 97.7 F Pulse Rate 88 Respiratory Rate 18 Blood Pressure 140/94 H Pulse Oximetry 98 Oxygen Delivery Method Room Air BMI result Body Mass Index 27.0 Course Course Course Narrative: Rapid medical examination performed in triage by Rita Mayen PA-C. Patient is a 40 year old assigned male at presenting to the emergency department with dizziness and numbness in his left arm. Patient states the left arm numbness has been intermittent for at least a week. Detailed physical exam and review of systems are deferred to the intake clinician. EKG, labs, and imag ing ordered. Patient placed back in the waiting room pending room availability and results. Patient left the department without completing treatment. Patient left the department before myself or any of the other emergency department clinicians could explain to or review with the patient; physical exam findings, test results or lack there of, need or lack there of for additional testing, need or lack there of for a procedure to be performed, need or lack there of for hospital admission / transfer, need or lack there of for prescription medication, treatment options, or a treatment plan. Patient's limited physical exam performed in triage showed a non-toxic individual with appropriate breathing, alert and oriented, and ambulating without assistance. Discharge Plan Discharge Clinical Impression: Lightheadedness Patient Disposition: Left W/O Completing Treatment Prescriptions: No Action hydrocodone-acetaminophen 7.5-325 mg tablet 1 tab PO Q4-6H PRN (Reason: pain) Qty: 20 0RF Rx Instructions: Partial Fill upon patient request. atenolol 25 mg tablet 25 mg PO DAILY Qty: 90 0RF Discharge Date/Time: 08/15/25 14:55
--- NOTE | 2025-08-15 13:15 | MHC.EDTECH ---
PATIENT NOT IN WAITING ROOM
== END 2025-08-15 14:55 | disposition left against medical advice (07) ==
LOC: HO.ED 14:49
PROVIDERS: Emergency Provider Emergency Medicine; PCP Nurse Practitioner Family
DX: R42 Dizziness and giddiness (principal); Z53.21 Procedure and treatment not carried out due to patient leaving prior to being seen by health care provider
CPT/HCPCS: 99281

== ENCOUNTER 2025-09-02 05:53 | Emergency (ER) | payer OTHER, SELFPAY ==
[2025-09-02 05:55] VITALS: BP 142/93; PULSE 108; RESP 20; TEMP 36.6; O2SAT 94; BMI 28.1
[2025-09-02 06:15] LABS: Hematocrit 52.4 % (42.0-52.0); Hemoglobin 17.9 g/dl (14.0-18.0); Imm Gran Abs Auto 0.07 X10*3/uL (0.00-0.03); Imm Gran Pct Auto 0.5 % (0.0-0.4); Lymphocytes Absolute Auto 3.3 X10*3/uL (1.2-4.9); MANUAL DIFF FLAG NO; Mean Corpuscular HGB Conc 34.2 g/dl (31.0-36.0); Mean Corpuscular Hemoglobin 33.8 pg (27.0-33.0); Mean Corpuscular Volume 99.1 fL (80.0-98.0); NRBC Abs Auto 0.000 X10*3/uL (0.0-0.012); NRBC Pct Auto 0.0 /100WBC (0.0-0.2); Platelet Count 302 X10*3/uL (160-400); Red Blood Count 5.29 X10*6/uL (4.60-5.80); White Blood Count 14.3 X10*3/uL (4.8-10.8)
[2025-09-02 06:32] LABS: Alanine Aminotransferase 61 U/L (0-40); Albumin Level 4.4 g/dL (3.5-5.0); Alkaline Phosphatase 80 U/L (39-117); Anion Gap 17 (12-20); Aspartate Amino Transferase 41 U/L (5-37); Blood Urea Nitrogen 16 mg/dL (9-16); Calcium 9.0 mg/dL (8.4-10.2); Carbon Dioxide 26 mmol/L (22-29); Chloride 103 mmol/L (96-108); Creatinine Clr Calc Pharmacy 99.6; Estimated Glomerular Filt Rate > 60; Lipase 29 U/L (8-78); Potassium 4.3 mmol/L (3.3-5.1); Sodium 142 mmol/L (135-145); Total Protein 7.8 g/dL (6.5-8.0)
--- NOTE | 2025-09-02 06:46 | ED.ALCOHOL ---
HPI - Alcohol General Chief Complaint: ETOH/Substance Use Stated Complaint: ETOH? Time Seen by Provider: 09/02/25 06:42 Source: patient Mode of arrival: ambulatory Limitations: no limitations History of Present Illness HPI narrative: This is 40 years old male presented to the emergency department complaining of nausea vomiting abdominal cramps he has says that he has been drinking a lot. He does not want to go to detox. He states that he will call on Saturday [facility] but he is not ready today because he needs to work complaint: alcohol intoxication Last drink: Days (ago) (1) Chronic alcohol use: Yes Associated symptoms: nausea and vomiting Treatments prior to arrival: none Related Data Previous Rx's ?Medication ?Instructions ?Recorded atenolol 25 mg tablet 25 mg PO DAILY #90 tabs 06/11/25 hydrocodone 7.5 mg-acetaminophen 1 tab PO Q4-6H PRN pain #20 tabs 06/17/25 325 mg tablet Allergies Allergy/AdvReac Type Severity Reaction Status Date / Time sertraline AdvReac Unknown sexual Verified 09/02/25 05:57 side effects Review of Systems Constitutional: Constitutional: Reports no additional constitutional complaints ENT: Reports system reviewed and no additional complaints, except as documented Cardiovascular: Cardiovascular: Reports no additional cardiovascular complaints [facility] Past Medical History Attestation statement: The following information was validated with the patient. [facility] Narrative: Alcohol use disorder Medical History Adams's palsy Depression Hemochromatosis Jaw fracture Jaw clicking Abnormal ultrasound of liver Hospital discharge follow-up Surgical History Surgical history unknown Family History Family History Father Colon cancer Depression Brother Depression Other FH: mental illness Substance abuse Social History Social History Housing: Apartment Are you a primary director of critical care to a significant other at home: No Do you presently have visiting nurse or other home services: No Alcohol intake: current Alcohol intake frequency: 3 or more drinks per day Alcohol type: beer and hard liquor Patient Tobacco Use Status: Current someday Tobacco user (1 cigarette a month) Cigarettes Per Day: 3 Years Smoked: 20 Smoked in Last 30 Days: No e-Cigarette/Vaping Use: Never Used Second Hand Smoke Exposure: No Use of substances other than those prescribed or required for medical reasons: No Substance Use Type: Crack/Cocaine Advance Directives: No Advance Directives Information Provided: Yes service: No Current occupational status: employed Current occupation: [employer] Current occupational exposures/hazards: No Cognitive needs: No Hearing needs: No Vision needs: No Physical Exam ED Exam Exam: Not acute distress comfortable in the stretcher Vital Signs: Vital Signs - 24 hr 09/02/25 05:55 Temperature 97.8 F Pulse Rate 108 H Respiratory Rate 20 Blood Pressure 142/93 H Pulse Oximetry 94 Oxygen Delivery Method Room Air BMI result Body Mass Index 28.1 Const General: cooperative Nutritional Appearance: well nourished HENMT Head: Yes normal to inspection Ears: hearing grossly normal bilaterally General nose exam: Normal external nose present Face and sinus: Yes normal facial exam Mouth: Normal oral and palatal mucosa present Neck Neck: Yes normal visual inspection Chest Chest palpation & inspection: normal inspection of the chest Resp Effort & Inspection: normal respiratory effort Auscultation: clear to auscultation bilaterally Cardio Jugular venous distension: no JVD Rate: regular rate Rhythm: regular rhythm GI Inspection: Yes normal to inspection Palpation (GI): Soft to palpation, not firm and nontender Auscultation: normal bowel sounds Skin General skin exam: no rashes or lesions noted Lesions: no lesions Rashes: no rashes Course Reevaluation(s) Reevaluation #1: Patient was seen by the resource recovery specialist they found the bed a [facility] at this point we will discharge the patient he will go to the detox Time: 15:00 Medical Decision Making Medical Decision Making [facility] Narrative: Patient is here with a alcohol intoxication he declined detox complaining of nausea and vomiting we will try with Billy Differential Diagnosis Differential Diagnoses: The differential diagnosis associated with the presentation includes Alcohol intoxication/dehydration Admission/Observation Consideration of admission/observation: Escalation of care including admission/observation considered Lab Data [facility] Lab Attestation statement: I reviewed the patient's lab results. 09/02/25 06:08 09/02/25 06:08 Labs: Lab Results 09/02/25 Range/Units 06:08 WBC 14.3 H (4.8-10.8) X10*3/uL RBC 5.29 (4.60-5.80) X10*6/uL Hgb 17.9 (14.0-18.0) g/dl Hct 52.4 H (42.0-52.0) % MCV 99.1 H (80.0-98.0) fL MCH 33.8 H (27.0-33.0) pg MCHC 34.2 (31.0-36.0) g/dl RDW 12.6 (11.0-16.0) % Plt Count 302 D (160-400) X10*3/uL MPV 8.8 L (9.4-12.4) fL Immature Gran % (Auto) 0.5 H (0.0-0.4) % Neut % (Auto) 69.0 (45-73) % Lymph % (Auto) 22.7 (20-40) % Garvin % (Auto) 6.0 (2-11) % Eos % (Auto) 1.0 (0-4) % Baso % (Auto) 0.8 (0-2) % Lymph # (Auto) 3.3 (1.2-4.9) X10*3/uL Garvin # (Auto) 0.9 (0.1-1.2) X10*3/uL Eos # (Auto) 0.1 (0.0-0.4) X10*3/uL Baso # (Auto) 0.1 (0.0-0.2) X10*3/uL Abs Immat Gran (auto) 0.07 H (0.00-0.03) X10*3/uL Absolute Neuts (auto) 9.9 H (2.0-8.3) x10*3/uL Absolute Nucleated RBC 0.000 (0.0-0.012) X10*3/uL Nucleated RBC % (auto) 0.0 (0.0-0.2) /100WBC Sodium 142 (135-145) mmol/L Potassium 4.3 (3.3-5.1) mmol/L Chloride 103 (96-108) mmol/L Carbon Dioxide 26 (22-29) mmol/L Anion Gap 17 (12-20) BUN 16 (9-16) mg/dL Creatinine 1.05 (0.5-1.4) mg/dL Estim Creat Clear Calc 99.6 Estimated GFR > 60 Random Glucose 215 H (60-115) mg/dL Calcium 9.0 (8.4-10.2) mg/dL Total Bilirubin 0.4 (0.0-1.0) mg/dL AST 41 H (5-37) U/L ALT 61 H (0-40) U/L Alkaline Phosphatase 80 (39-117) U/L Total Protein 7.8 (6.5-8.0) g/dL Albumin 4.4 (3.5-5.0) g/dL Lipase 29 (8-78) U/L Ethyl Alcohol 205 mg/dL Medications Administered Discontinued Medications Generic Name Dose Route Start Last Admin Trade Name Freq PRN Reason Stop Dose Admin Chlordiazepoxide HCl 50 mg 09/02/25 13:59 09/02/25 14:18 Chlordiazepoxide Hcl 25 Mg Capsule PO 09/02/25 14:00 50 mg ONCE ONE Administration Metoclopramide HCl 10 mg 09/02/25 12:29 09/02/25 12:34 Metoclopramide Hcl 10 Mg Tablet PO 09/02/25 12:30 10 mg ONCE ONE Administration Ondansetron HCl 4 mg 09/02/25 06:45 09/02/25 07:05 Ondansetron Odt 4 Mg Tab.Rapdis TRANSLINGU 09/02/25 06:46 4 mg ONCE ONE Administration Ondansetron HCl 4 mg 09/02/25 12:29 09/02/25 12:34 Ondansetron Odt 4 Mg Tab.Rapdis TRANSLINGU 09/02/25 12:30 4 mg ONCE ONE Administration Discharge Plan Discharge Clinical Impression: Alcohol abuse Patient Disposition: Home, Self-Care Instructions: Abuse of Alcohol (DC) Additional Instructions: We have found a bed for you to [facility] we will give you a lift Prescriptions: No Action hydrocodone-acetaminophen 7.5-325 mg tablet 1 tab PO Q4-6H PRN (Reason: pain) Qty: 20 0RF Rx Instructions: Partial Fill upon patient request. atenolol 25 mg tablet 25 mg PO DAILY Qty: 90 0RF Print Language: Tristanian
[2025-09-02 15:08] VITALS: BP 133/87; PULSE 76; RESP 16; TEMP 36.7; O2SAT 96
== END 2025-09-02 15:11 | disposition home or self-care (01) ==
PROVIDERS: Emergency Provider Emergency Medicine; PCP Nurse Practitioner Family
DX: F10.10 Alcohol abuse, uncomplicated (principal)
CPT/HCPCS: 36415; 80053; 80307; 83690; 85025; 99284; S9485

== ENCOUNTER 2025-10-12 09:17 | Inpatient (IN) | payer OTHER, SELFPAY ==
[2025-10-12 09:25] VITALS: BP 155/82; PULSE 111; RESP 18; TEMP 36.7; O2SAT 99; BMI 28.2
--- NOTE | 2025-10-12 09:33 | ED_ITS ---
HPI - Alcohol General Chief Complaint: ETOH/Substance Use Stated Complaint: Withdrawal Time Seen by Provider: 10/12/25 10:15 Source: patient, RN notes reviewed and old records reviewed Mode of arrival: ambulatory History of Present Illness ED Provider: Ashley Gregorio PA-C HPI narrative: 40-year-old male with a past medical history Adams's palsy, depression, hemochromatosis, HTN, presenting to the ED complaining of ETOH withdrawal. Admits to drinking about 15-20 drinks daily, last drink 08:00AM. states went to a detox this morning however they did not have a bed available until this afternoon and he was feeling unwell with associated abdominal discomfort, nausea, vomiting. Denies history of ETOH withdrawal seizures/DTs. Denies known injury, trauma, fall, SI Related Data Previous Rx's ?Medication ?Instructions ?Recorded atenolol 25 mg tablet 25 mg PO DAILY #90 tabs 03/28 Allergies Allergy/AdvReac Type Severity Reaction Status Date / Time sertraline AdvReac Unknown sexual Verified 10/12/25 09:27 side effects Review of Systems 2 Review of Systems: Yes all other systems are reviewed and are negative Constitutional: Constitutional: Reports as per [facility] Past Medical History Attestation statement: The following information was validated with the patient. Source: old records reviewed Medical History Adams's palsy Depression Hemochromatosis Jaw fracture Jaw clicking Abnormal ultrasound of liver Hospital discharge follow-up Surgical History Surgical history unknown Family History Family History Father Colon cancer Depression Brother Depression Other FH: mental illness Substance abuse Social History Social History Housing: Apartment Are you a primary patient care nursing assistant to a significant other at home: No Do you presently have visiting nurse or other home services: No Alcohol intake: current Alcohol intake frequency: 3 or more drinks per day Alcohol type: beer and hard liquor Patient Tobacco Use Status: Current someday Tobacco user (1 cigarette a month) Cigarettes Per Day: 3 Years Smoked: 20 e-Cigarette/Vaping Use: Never Used Second Hand Smoke Exposure: No Substance Use Type: Crack/Cocaine Advance Directives: No Advance Directives Information Provided: No service: No Current occupational status: employed 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 [employer] Current occupational exposures/hazards: No Cognitive needs: No Hearing needs: No Vision needs: No Physical Exam ED Vital Signs: Vital Signs - 24 hr 10/12/25 09:25 Temperature 98.0 F Pulse Rate 111 H Respiratory Rate 18 Blood Pressure 155/82 H Pulse Oximetry 99 Oxygen Delivery Method Room Air BMI result Body Mass Index 28.2 Const General: cooperative, healthy appearing and no acute distress Orientation/consciousness: patient oriented x3 Limitations: no limitations HENMT Head: Yes normal to inspection and Yes atraumatic Ears: hearing grossly normal bilaterally General nose exam: Normal external nose present Face and sinus: Yes normal facial exam Eyes General: appearance normal, both eyes and all related structures EOM: EOMs intact bilaterally Neck Neck: Yes normal visual inspection and Yes no meningeal signs Resp Effort & Inspection: normal respiratory effort and no respiratory distress Cardio Rate: regular rate GI Inspection: Yes normal to inspection Palpation (GI): Soft to palpation, nontender, no guarding and not rigid General: Yes no CVA tenderness Back/Spine/Pelvis Back: no CVA tenderness Skin Rashes: no rashes Wounds: no wounds Neuro Other: tremulous. No tongue fasciculations appreciated General: patient oriented x3, tone normal and no meningeal signs Cranial nerves: Yes CN's II-XII intact bilaterally Gait exam (Neuro): Normal gait present Motor exam (neuro): no fasciculations noted Extrem General: Yes normal to inspection Course Course Course Narrative: 40-year-old male with past medical history of depression, hypertension, hemochromatosis, who states he drinks about 10-12 drinks a day his last intake was 08:00 this morning. He comes in stating he has nausea, shakes, not feeling well, vomiting. He has not report any trauma, or SI. He states he has never had a withdrawal seizure in the past. Does have tremors and fasciculations of the tongue on exam. At this time I am going to start him on IV fluids, thiamine, Valium, IV magnesium and obtain labs. Rest of workup to be done by primary provider this is a RAPID medical screening exam the rest of the history and physical exam is to be done by the main provider. 9:40 AM 10/12/2025 (DEEDEE ): - mild leukocytosis of 13.6. Ethanol 156, tox screen otherwise negative -1358-- on re-evaluation patient persistently dry heaving and nauseous tachycardic to 140s. Will initiate phenobarb protocol and plan to admit for further management - case discussed with hospitalist [id number] Medical Decision Making Medical Decision Making [facility] Narrative: 40-year-old male with a past medical history Adams's palsy, depression, hemochromatosis, HTN, presenting to the ED complaining of ETOH withdrawal. On exam tachycardic, tremulous, NAD, abdomen is soft and nontender, no tongue fasciculations appreciated. Concern for ETOH withdrawal. Rule out metabolic infectious etiologies. Low suspicion for severe sepsis Plan: Labs, IVF, IV thiamine, IV Valium, recovery consult, re-evaluate Please refer to course for remaining clinical decision making, interpretation of labs/imaging results, and discussions with consultants and/or family members. Differential Diagnosis Differential Diagnoses: The differential diagnosis associated with the presentation includes As above Admission/Observation Consideration of admission/observation: Escalation of care including admission/observation considered Lab Data [facility] Lab Attestation statement: I reviewed the patient's lab results. 10/12/25 11:49 10/12/25 11:49 Labs: Lab Results 10/12/25 Range/Units 11:49 WBC 13.6 H (4.8-10.8) X10*3/uL RBC 5.09 (4.60-5.80) X10*6/uL Hgb 17.2 (14.0-18.0) g/dl Hct 49.7 (42.0-52.0) % MCV 97.6 (80.0-98.0) fL MCH 33.8 H (27.0-33.0) pg MCHC 34.6 (31.0-36.0) g/dl RDW 12.7 (11.0-16.0) % Plt Count 253 (160-400) X10*3/uL MPV 8.2 L (9.4-12.4) fL Immature Gran % (Auto) 0.4 (0.0-0.4) % Neut % (Auto) 64.1 (45-73) % Lymph % (Auto) 24.9 (20-40) % [place] % (Auto) 9.4 (2-11) % Eos % (Auto) 0.5 (0-4) % Baso % (Auto) 0.7 (0-2) % Lymph # (Auto) 3.4 (1.2-4.9) X10*3/uL [place] # (Auto) 1.3 H (0.1-1.2) X10*3/uL Eos # (Auto) 0.1 (0.0-0.4) X10*3/uL Baso # (Auto) 0.1 (0.0-0.2) X10*3/uL Abs Immat Gran (auto) 0.06 H (0.00-0.03) X10*3/uL Absolute Neuts (auto) 8.7 H (2.0-8.3) x10*3/uL Absolute Nucleated RBC 0.000 (0.0-0.012) X10*3/uL Nucleated RBC % (auto) 0.0 (0.0-0.2) /100WBC Sodium 141 (135-145) mmol/L Potassium 3.9 (3.3-5.1) mmol/L Chloride 102 (96-108) mmol/L Carbon Dioxide 26 (22-29) mmol/L Anion Gap 17 (12-20) BUN 5 L (9-16) mg/dL Creatinine 0.98 (0.5-1.4) mg/dL Estim Creat Clear Calc 106.9 Estimated GFR > 60 Random Glucose 122 H (60-115) mg/dL Calcium 9.1 (8.4-10.2) mg/dL Magnesium 1.8 (1.6-2.6) mg/dL Total Bilirubin 0.8 (0.0-1.0) mg/dL AST 58 H (5-37) U/L ALT 50 H (0-40) U/L Alkaline Phosphatase 98 (39-117) U/L Total Protein 7.6 (6.5-8.0) g/dL Albumin 4.1 (3.5-5.0) g/dL Lipase 21 (8-78) U/L Urine Opiates Screen Not Detected (Not Detect) Ur Buprenorphine Scrn Not Detected (Not Detect) ng/mL Ur Oxycodone Screen Not Detected (Not Detect) ng/mL Urine Methadone Screen Not Detected (Not Detect) ng/mL Urine Fentanyl Screen Not Detected (Not Detect) Ur Barbiturates Screen Not Detected (Not Detect) Ur Phencyclidine Scrn Not Detected (Not Detect) Ur Amphetamines Screen Not Detected (Not Detect) U Benzodiazepines Scrn Not Detected (Not Detect) Urine Cocaine Screen Not Detected (Not Detect) U Marijuana (THC) Screen Not Detected (Not Detect) Ethyl Alcohol 156 mg/dL Independent Interpretation I performed an independent interpretation of an: EKG Radiology Impression Discussion of test interpretation with radiology: I have reviewed the radiologist's reading. External Record Review External record reviewed: Inpatient record, Office record, Outpatient record, Prior outpatient labs, Prior outpatient radiology, Primary care record and Outside ED record Tests considered The following testing was considered but not selected: As above Prescription Management I considered prescription management with: Other Chronic Conditions Patient?s care impacted by: Hypertension and Other Social Determinants Patient?s care significantly limited by Social Determinants of Health including: Alcoholism and drug addiction in family Medications Administered Discontinued Medications Generic Name Dose Route Start Last Admin Trade Name Freq PRN Reason Stop Dose Admin Diazepam 5 mg 10/12/25 09:32 10/12/25 10:17 Diazepam 10 Mg/2 Ml Cartridge IVPUSH 10/12/25 09:33 5 mg STAT STA Administration Diazepam 5 mg 10/12/25 12:02 10/12/25 12:19 Diazepam 10 Mg/2 Ml Cartridge IVPUSH 10/12/25 12:03 5 mg STAT STA Administration Thiamine HCl 200 mg/ Sodium 102 mls @ 204 mls/hr 10/12/25 09:32 10/12/25 12:05 Chloride IV 10/12/25 10:01 Infused ONCE ONE Infusion Lactated Ringer's 1,000 mls @ 999 mls/hr 10/12/25 09:32 10/12/25 12:05 Lr IV 10/12/25 10:32 Infused .Q1H1M ONE Infusion Metoclopramide HCl 10 mg 10/12/25 12:55 10/12/25 13:54 Metoclopramide Hcl 10 Mg/2 Ml Vial IVPUSH 10/12/25 12:56 10 mg ONCE ONE Administration Ondansetron HCl 4 mg 10/12/25 09:32 10/12/25 10:19 Ondansetron Hcl 4 Mg/2 Ml Vial IVPUSH 10/12/25 09:33 4 mg ONCE ONE Administration Critical Care Time Critical Care Time Critical Care Time: Yes Total Critical Care Time: 50 Attestation: I have personally provided critical care time exclusive of time spent on separately billable procedures. Time includes review of lab data, radiology results, discussion with consultants, and monitoring for potential decompensation. Intervention performed as documented. Discharge Plan Discharge Clinical Impression: Alcohol withdrawal syndrome Patient Disposition: Admitted As Inpatient Print Language: Azeri
[2025-10-12] MEDS: Lactated Ringers 1,000 ML 999 ML IV (10:16)
[2025-10-12] MEDS: diazePAM 10 MG/2 ML CARTRIDGE 5 MG IVPUSH ×2 (10:17→12:19)
[2025-10-12] MEDS: Thiamine HCL 200 MG in 0.9 % Sodium Chloride 100 ML 204 MG IV (10:23)
[2025-10-12 11:57] LABS: MANUAL DIFF FLAG NO
[2025-10-12 11:59] LABS: Hematocrit 49.7 % (42.0-52.0); Hemoglobin 17.2 g/dl (14.0-18.0); Imm Gran Abs Auto 0.06 X10*3/uL (0.00-0.03); Imm Gran Pct Auto 0.4 % (0.0-0.4); Lymphocytes Absolute Auto 3.4 X10*3/uL (1.2-4.9); Mean Corpuscular HGB Conc 34.6 g/dl (31.0-36.0); Mean Corpuscular Hemoglobin 33.8 pg (27.0-33.0); Mean Corpuscular Volume 97.6 fL (80.0-98.0); NRBC Abs Auto 0.000 X10*3/uL (0.0-0.012); NRBC Pct Auto 0.0 /100WBC (0.0-0.2); Platelet Count 253 X10*3/uL (160-400); Red Blood Count 5.09 X10*6/uL (4.60-5.80); White Blood Count 13.6 X10*3/uL (4.8-10.8)
[2025-10-12 12:11] LABS: Cannabinoid Screen Urine Not Detected (Not Detect)
[2025-10-12 12:25] LABS: Alanine Aminotransferase 50 U/L (0-40); Albumin Level 4.1 g/dL (3.5-5.0); Alkaline Phosphatase 98 U/L (39-117); Anion Gap 17 (12-20); Aspartate Amino Transferase 58 U/L (5-37); Blood Urea Nitrogen 5 mg/dL (9-16); Calcium 9.1 mg/dL (8.4-10.2); Carbon Dioxide 26 mmol/L (22-29); Chloride 102 mmol/L (96-108); Creatinine Clr Calc Pharmacy 106.9; Estimated Glomerular Filt Rate > 60; Lipase 21 U/L (8-78); Magnesium 1.8 mg/dL (1.6-2.6); Potassium 3.9 mmol/L (3.3-5.1); Sodium 141 mmol/L (135-145); Total Protein 7.6 g/dL (6.5-8.0)
[2025-10-12 14:08] VITALS: BP 130/77; PULSE 117; RESP 20; TEMP 36.8; O2SAT 97
[2025-10-12 14:12] VITALS: BP 130/77; PULSE 114; RESP 18; O2SAT 98
--- NOTE | 2025-10-12 14:12 | PM.IMHP ---
History of Present Illness Date of Service: 10/12/25 Chief Complaint: alcohol withdrawal 40-year-old male with a past medical history Adams's palsy, depression, hemochromatosis, HTN, presented to the ED complaining of ETOH withdrawal last drunk at 0800 and he was noted to still have an elevated alcohol level. He drinks at least 12 beers a day and half a pint of whisky. He said that he went to detox today but they did not have a bed available today so he came to the ED. He denied history of DT's or withdrawal seizures. He had elevated liver enzymes and tachycardia. He was started on phenobarbitol and will be admitted for management of alcohol withdrawal. Review of Systems Review of Systems: Denies any recent fever chills or decrease in appetite respiratory denies any shortness of breath or cough cardiovascular denied chest pain gastrointestinal dry heaves genitourinary denies any dysuria frequency or hematuria musculoskeletal denies any joint pain or swelling neuropsych denies any weakness or seizures all other systems reviewed are negative COUNT INCLUDES [facility] Medical History (Updated 10/12/25 @ 14:33 by Bernie Maldonado NP) Hypertension Adams's palsy Depression Hemochromatosis Jaw fracture Family History Father Colon cancer Depression Brother Depression Other FH: mental illness Substance abuse Surgical History Surgical history unknown Social History Housing: Apartment Are you a primary health care marketing manager to a significant other at home: No Do you presently have visiting nurse or other home services: No Alcohol intake: current Alcohol intake frequency: 3 or more drinks per day Alcohol type: beer and hard liquor Patient Tobacco Use Status: Current someday Tobacco user (1 cigarette a month) Cigarettes Per Day: 3 Years Smoked: 20 e-Cigarette/Vaping Use: Never Used Second Hand Smoke Exposure: No Substance Use Type: Crack/Cocaine Advance Directives: No Advance Directives Information Provided: No service: No Current occupational status: employed 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 [employer] Current occupational exposures/hazards: No Cognitive needs: No Hearing needs: No Vision needs: No Meds Allergies Allergy/AdvReac Type Severity Reaction Status Date / Time sertraline AdvReac Unknown sexual Verified 10/12/25 09:27 side effects Active Medications: Current Medications Pharmacy Consult (Consult Rx Etoh Phenob Im/Po) 1 each MISCELLANE ONCE PRN; Protocol PRN Reason: Consult order Physical Exam Vital Signs and Narrative: Vital Signs: Last Vital Signs Temp 98.3 F 10/12/25 14:08 Pulse 117 H 10/12/25 14:08 Resp 20 10/12/25 14:08 BP 130/77 10/12/25 14:08 Pulse Ox 97 10/12/25 14:08 O2 Del Method Room Air 10/12/25 14:08 BMI result Body Mass Index 28.2 Appearing in no acute distress head is normocephalic atraumatic eyes pupils are PERRLA sclera is anicteric mouth throat mucous membranes are intact and moist neck is supple no lymphadenopathy, no JVD noted lung sounds are clear to auscultation heart regular rate rhythm, clear S1, S2 positive bowel sounds, abdomen is soft, nontender neuro patient is alert x3, no focal deficits Results Labs 10/12/25 11:49 10/12/25 11:49 Labs: Laboratory Results - last 24 hr 10/12/25 11:49 MCV 97.6 MCH 33.8 H MCHC 34.6 RDW 12.7 Plt Count 253 MPV 8.2 L Immature Gran % (Auto) 0.4 Neut % (Auto) 64.1 Lymph % (Auto) 24.9 [place] % (Auto) 9.4 Eos % (Auto) 0.5 Baso % (Auto) 0.7 Lymph # (Auto) 3.4 [place] # (Auto) 1.3 H Eos # (Auto) 0.1 Baso # (Auto) 0.1 Abs Immat Gran (auto) 0.06 H Absolute Neuts (auto) 8.7 H Absolute Nucleated RBC 0.000 Nucleated RBC % (auto) 0.0 Anion Gap 17 Estim Creat Clear Calc 106.9 Estimated GFR > 60 Random Glucose 122 H Calcium 9.1 Magnesium 1.8 Total Bilirubin 0.8 AST 58 H ALT 50 H Alkaline Phosphatase 98 Total Protein 7.6 Albumin 4.1 Lipase 21 Urine Opiates Screen Not Detected Ur Buprenorphine Scrn Not Detected Ur Oxycodone Screen Not Detected Urine Methadone Screen Not Detected Urine Fentanyl Screen Not Detected Ur Barbiturates Screen Not Detected Ur Phencyclidine Scrn Not Detected Ur Amphetamines Screen Not Detected U Benzodiazepines Scrn Not Detected Urine Cocaine Screen Not Detected U Marijuana (THC) Screen Not Detected Ethyl Alcohol 156 Assessment and Plan (1) EtOH dependence: Qualifiers: Substance use status: uncomplicated Qualified Code(s): F10.20 - Alcohol dependence, uncomplicated Status: Acute Plan 40 year old man admitted with alcohol withdrawal syndrome Alcohol intoxication and withdrawal syndrome Drinks on average 12 beers a day and half a pint of whisky (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
--- NOTE | 2025-10-12 14:43 | PC.NURSE ---
Patient asking of water, educated on importance of waiting until vomiting has stopped, patient understanding. awaiting admission to hosptial
--- NOTE | 2025-10-12 15:25 | PC.NURSE ---
PMH: Adams's palsy, depression, hemochromatosis, HTN, presented to the ED complaining of ETOH withdrawal last drink at 0800 and he was noted to still have an elevated alcohol level. He drinks at least 12 beers a day and half a pint of whisky. He said that he went to detox today but they did not have a bed available today so he came to the ED. Patient alert/oriented/able to make needs known. 1A to BR d/t shakiness. tachy on monitor, started on phenobarb protocol.
[2025-10-12] MEDS: Lactated Ringers 1,000 ML 125 ML IVCONT ×2 (15:40→23:40)
[2025-10-12] MEDS: PHENobarbitaL sodium 130 MG/ML IM ONCE 283 MG IM (15:41)
[2025-10-12 17:34] VITALS: BMI 29.3
--- NOTE | 2025-10-12 17:37 | PHA.MEDREC ---
Addendum entered by Marito Núñez RPh 10/12/25 17:40: med rec reviewed Original Note: Pharmacy Consult ? Medication Reconciliation Pharmacy has completed the medication reconciliation. Spoke with pt and he confirmed his medications.
[2025-10-12 17:49] VITALS: BP 158/80; PULSE 112; RESP 18; TEMP 36.7; O2SAT 97
[2025-10-12] MEDS: PHENobarbitaL sodium 130 MG/ML VIAL IM Q3Hx2 212 MG IM ×2 (17:52→21:49)
[2025-10-12 20:00] VITALS: BP 141/88; PULSE 118; RESP 18; TEMP 36.7; O2SAT 97
[2025-10-12] MEDS: 0.9 % Sodium Chloride Flush 3 ML SYRINGE IVFLUSH (23:40)
[2025-10-13] VITALS: BP 139/70; PULSE 100; RESP 16; TEMP 37; O2SAT 95
[2025-10-13 03:54] VITALS: BP 135/73; PULSE 76; RESP 18; TEMP 36.1; O2SAT 97
[2025-10-13] MEDS: Lactated Ringers 1,000 ML 125 ML IVCONT ×3 (06:11→22:49)
[2025-10-13 07:08] LABS: Hematocrit 45.9 % (42.0-52.0); Hemoglobin 15.7 g/dl (14.0-18.0); Mean Corpuscular HGB Conc 34.2 g/dl (31.0-36.0); Mean Corpuscular Hemoglobin 34.0 pg (27.0-33.0); Mean Corpuscular Volume 99.4 fL (80.0-98.0); NRBC Abs Auto 0.000 X10*3/uL (0.0-0.012); NRBC Pct Auto 0.0 /100WBC (0.0-0.2); Platelet Count 219 X10*3/uL (160-400); Red Blood Count 4.62 X10*6/uL (4.60-5.80); White Blood Count 13.5 X10*3/uL (4.8-10.8)
[2025-10-13 07:33] VITALS: BP 151/87; PULSE 94; RESP 20; TEMP 36.9; O2SAT 98
[2025-10-13 07:33] LABS: Magnesium 1.4 mg/dL (1.6-2.6)
--- NOTE | 2025-10-13 07:38 | P.PNIM_ITS ---
Subjective Subjective Date of Service: 10/13/25 Interval History: cont phenobarb protocol Review of Systems Review of Systems: Yes all other systems are reviewed and are negative Physical Exam 2 Exam: Exam: General: AOx3, mildly tremulous Resp: CTA bilaterally CVS: S1, S2, RRR GI: +BS, NT, no distention Neuro: Motor grossly intact bilaterally Psych: Anxious affect Vital Signs: Vital Signs: Last Vital Signs Temp 97 F 10/13/25 03:54 Pulse 76 10/13/25 03:54 Resp 18 10/13/25 03:54 BP 135/73 10/13/25 03:54 Pulse Ox 97 10/13/25 03:54 O2 Del Method Room Air 10/13/25 03:54 BMI result Body Mass Index 29.3 Objective Data Active Medications Acetaminophen (Acetaminophen 325 Mg Tablet) 650 mg PO Q6H PRN PRN Reason: Pain, Mild 1-3,fever,headache Calcium Carbonate (Calcium Carbonate 750 Mg Tab.Chew) 750 mg PO Q4H PRN PRN Reason: Heartburn Last Admin: 10/12/25 21:48 Dose: 750 mg Documented By: ALBERT Folic Acid (Folic Acid 1 Mg Tablet) 1 mg PO DAILY [facility] Last Admin: 10/12/25 15:40 Dose: 1 mg Documented By: DITOLC Heparin Sodium (Porcine) (Heparin Sodium,Porcine 5,000 Unit/Ml Vial) 5,000 unit SUBCUT Q12H [facility] Last Admin: 10/13/25 04:57 Dose: 5,000 unit Documented By: ALBERT Lactated Ringer's (Lr) 1,000 mls @ 125 mls/hr IVCONT .Q8H [facility] Last Admin: 10/13/25 06:11 Dose: 125 mls/hr Documented By: ALBERT Thiamine HCl 100 mg/ Sodium (Chloride) 101 mls @ 202 mls/hr IV DAILY JERILYN Stop: 10/15/25 08:59 Magnesium Sulfate (Magnesium Sulfate/H2o) 2 gm in 50 mls @ 25 mls/hr IV ONCE ONE Stop: 10/13/25 09:31 Magnesium Hydroxide (Milk Of Magnesia 30 Ml Oral.Susp) 30 ml PO DAILY PRN PRN Reason: Constipation Melatonin (Melatonin 3 Mg Tablet) 6 mg PO BEDTIME PRN PRN Reason: Insomnia Last Admin: 10/12/25 21:47 Dose: 6 mg Documented By: ALBERT Multivitamins/Vitamin C (Multivitamin Tablet) 1 tab PO DAILY [facility] Last Admin: 10/12/25 15:40 Dose: 1 tab Documented By: DITOLC Ondansetron HCl (Ondansetron Hcl 4 Mg/2 Ml Vial) 4 mg IVPUSH Q8H PRN PRN Reason: Nausea and Vomiting Last Admin: 10/13/25 04:58 Dose: 4 mg Documented By: ALBERT Pharmacy Consult (Consult Rx Etoh Phenob Im/Po) 1 each MISCELLANE ONCE PRN; Protocol PRN Reason: Consult order Phenobarbital (Phenobarbital 15 Mg Tablet) 45 mg PO BID [facility]; Protocol Stop: 10/14/25 21:01 Phenobarbital (Phenobarbital 30 Mg Tablet) 30 mg PO BID [facility]; Protocol Stop: 10/16/25 21:01 Phenobarbital (Phenobarbital 30 Mg Tablet) 30 mg PO DAILY [facility]; Protocol Stop: 10/18/25 09:01 Sodium Chloride (0.9 % Sodium Chloride Flush 3 Ml Syringe) [facility] Last Admin: 10/12/25 23:40 Dose: 3 ml Documented By: ALBERT Labs 10/13/25 06:29 10/13/25 06:29 Labs: Laboratory Results - last 24 hr 10/12/25 10/13/25 11:49 06:29 MCV 97.6 99.4 H MCH 33.8 H 34.0 H MCHC 34.6 34.2 RDW 12.7 12.6 Plt Count 253 219 MPV 8.2 L 8.8 L Immature Gran % (Auto) 0.4 Neut % (Auto) 64.1 Lymph % (Auto) 24.9 [place] % (Auto) 9.4 Eos % (Auto) 0.5 Baso % (Auto) 0.7 Lymph # (Auto) 3.4 [place] # (Auto) 1.3 H Eos # (Auto) 0.1 Baso # (Auto) 0.1 Abs Immat Gran (auto) 0.06 H Absolute Neuts (auto) 8.7 H Absolute Nucleated RBC 0.000 0.000 Nucleated RBC % (auto) 0.0 0.0 Anion Gap 17 Estim Creat Clear Calc 106.9 Estimated GFR > 60 Random Glucose 122 H Calcium 9.1 Magnesium 1.8 1.4 L* Total Bilirubin 0.8 AST 58 H ALT 50 H Alkaline Phosphatase 98 Total Protein 7.6 Albumin 4.1 Lipase 21 Urine Opiates Screen Not Detected Ur Buprenorphine Scrn Not Detected Ur Oxycodone Screen Not Detected Urine Methadone Screen Not Detected Urine Fentanyl Screen Not Detected Ur Barbiturates Screen Not Detected Ur Phencyclidine Scrn Not Detected Ur Amphetamines Screen Not Detected U Benzodiazepines Scrn Not Detected Urine Cocaine Screen Not Detected U Marijuana (THC) Screen Not Detected Ethyl Alcohol 156 Assessment and Plan (1) Alcohol withdrawal syndrome: Status: Acute Assessment and Plan: 40-year-old male with a past medical history Adams's palsy, depression, hemochromatosis, HTN, presented to the ED complaining of ETOH withdrawal ROSA Phenobarb protocol addiction med consult thiamine, folate, pt/ot seizure precautions Tranaminitis -likely etoh & HCM HypoNa -beers potomania HypoK- repleted to goal daily HypoMg - needs IV mg Hemochromatosis - OP mx HTN cont home meds depression cont home meds DVT PX:lovenox full code Needs to complete withdrawal protocol , hence needs cont hosp Quality Stroke Does the patient have a stroke diagnosis?: No VTE Prior VTE?: No VTE Risk Level:: Medical - moderate - high VTE Device Contraindication: Treatment Not Indicated VTE Drug Contraindication: N/A - Med Ordered
[2025-10-13 07:44] LABS: Alanine Aminotransferase 54 U/L (0-40); Albumin Level 3.8 g/dL (3.5-5.0); Alkaline Phosphatase 101 U/L (39-117); Anion Gap 15 (12-20); Aspartate Amino Transferase 91 U/L (5-37); Blood Urea Nitrogen 8 mg/dL (9-16); Calcium 8.8 mg/dL (8.4-10.2); Carbon Dioxide 27 mmol/L (22-29); Chloride 99 mmol/L (96-108); Creatinine Clr Calc Pharmacy 103.6; Estimated Glomerular Filt Rate > 60; Potassium 3.7 mmol/L (3.3-5.1); Sodium 137 mmol/L (135-145); Total Protein 7.0 g/dL (6.5-8.0)
[2025-10-13] MEDS: Magnesium Sulfate/H2O 2 GM/50 ML PIGGYBACK IV (07:52)
[2025-10-13] MEDS: PHENobarbital 15 MG TABLET 45 MG PO ×2 (08:07→20:35)
--- NOTE | 2025-10-13 09:00 | MHC.CM.PN ---
Addendum entered by Olga Perez 10/13/25 09:06: Pt. will drive himself home, his truck is in lot. Original Note: Pt. lives in a 2 family home, other family members on the other floor. PCP confirmed: [facility]. Pt. does not ues home health services or DME. His plan is to safely detox here and later go to a program for his alcoholism. He will need assistance with transport home at DC, DCP: home, self care, CM to follow for DC needs.
[2025-10-13] MEDS: Thiamine HCL 100 MG in 0.9 % Sodium Chloride 100 ML 202 MG IV (10:24)
[2025-10-13] MEDS: Potassium Chloride ER 20 MEQ TAB.ER.PRT PO (10:50)
[2025-10-13 11:45] VITALS: BP 141/87; PULSE 89; RESP 20; TEMP 37.6; O2SAT 96
--- NOTE | 2025-10-13 15:52 | PM.EVENT ---
Event Note Date of Service: 10/13/25 Event Note: Addiciton consult placed for patient with AUD and acute withdrawal Attempted to meet with patient X2-each time patient requesting to be left to sleep Chart reviewed -phenobarbital taper in place Mg 1.4 today -repleted Tank [id number] Plan: will follow up in AM Time Spent With Patient Time: Total time managing care of this patient today ____ minutes.
[2025-10-13 16:00] VITALS: BP 129/96; PULSE 80; RESP 20; TEMP 36.7; O2SAT 96
[2025-10-13] MEDS: 0.9 % Sodium Chloride Flush 3 ML SYRINGE IVFLUSH ×2 (17:07→20:36)
[2025-10-13 23:40] VITALS: BP 139/94; PULSE 69; RESP 16; TEMP 36.8; O2SAT 95
[2025-10-14 03:51] VITALS: BP 141/83; PULSE 70; RESP 18; TEMP 36.8
[2025-10-14] MEDS: Lactated Ringers 1,000 ML 125 ML IVCONT (06:27)
[2025-10-14 07:02] LABS: MANUAL DIFF FLAG NO
[2025-10-14 07:04] LABS: Hematocrit 44.4 % (42.0-52.0); Hemoglobin 15.5 g/dl (14.0-18.0); Imm Gran Abs Auto 0.04 X10*3/uL (0.00-0.03); Imm Gran Pct Auto 0.4 % (0.0-0.4); Lymphocytes Absolute Auto 2.1 X10*3/uL (1.2-4.9); Mean Corpuscular HGB Conc 34.9 g/dl (31.0-36.0); Mean Corpuscular Hemoglobin 34.3 pg (27.0-33.0); Mean Corpuscular Volume 98.2 fL (80.0-98.0); NRBC Abs Auto 0.000 X10*3/uL (0.0-0.012); NRBC Pct Auto 0.0 /100WBC (0.0-0.2); Platelet Count 173 X10*3/uL (160-400); Red Blood Count 4.52 X10*6/uL (4.60-5.80); White Blood Count 9.9 X10*3/uL (4.8-10.8)
[2025-10-14 07:10] LABS: INTERNATIONAL NORM RATIO 1.0 (0.9-1.1); Prothrombin Time 12.3 SEC (11.2-13.5)
--- NOTE | 2025-10-14 07:26 | HO.PM.IMPN ---
Subjective Subjective Date of Service: 10/14/25 Interval History: cont phenobarb protocol Review of Systems Review of Systems: Yes all other systems are reviewed and are negative Physical Exam Exam: Exam: General: AOx3, mildly tremulous Resp: CTA bilaterally CVS: S1, S2, RRR GI: +BS, NT, no distention Neuro: Motor grossly intact bilaterally Psych: Anxious affect Vital Signs: Vital Signs: Last Vital Signs Temp 98.2 F 10/14/25 03:51 Pulse 70 10/14/25 03:51 Resp 18 10/14/25 03:51 BP 141/83 H 10/14/25 03:51 Pulse Ox 95 10/13/25 23:40 O2 Del Method Room Air 10/14/25 03:51 BMI result Body Mass Index 29.3 Objective Data Active Medications Acetaminophen (Acetaminophen 325 Mg Tablet) 650 mg PO Q6H [facility] Last Admin: 10/14/25 04:36 Dose: 650 mg Documented By: PARVIZ Baclofen (Baclofen 10 Mg Tablet) 10 mg PO TID [facility] Last Admin: 10/13/25 20:36 Dose: 10 mg Documented By: PARVIZ Calcium Carbonate (Calcium Carbonate 750 Mg Tab.Chew) 750 mg PO Q4H PRN PRN Reason: Heartburn Last Admin: 10/12/25 21:48 Dose: 750 mg Documented By: ALBERT Folic Acid (Folic Acid 1 Mg Tablet) 1 mg PO DAILY [facility] Last Admin: 10/13/25 08:08 Dose: 1 mg Documented By: JOEL Heparin Sodium (Porcine) (Heparin Sodium,Porcine 5,000 Unit/Ml Vial) 5,000 unit SUBCUT Q12H [facility] Last Admin: 10/14/25 04:36 Dose: 5,000 unit Documented By: PARVIZ Lactated Ringer's (Lr) 1,000 mls @ 125 mls/hr IVCONT .Q8H [facility] Last Admin: 10/14/25 06:27 Dose: 125 mls/hr Documented By: PARVIZ Thiamine HCl 100 mg/ Sodium (Chloride) 101 mls @ 202 mls/hr IV DAILY [facility] Stop: 10/15/25 08:59 Last Infusion: 10/13/25 11:17 Dose: Infused Documented By: JOEL Magnesium Hydroxide (Milk Of Magnesia 30 Ml Oral.Susp) 30 ml PO DAILY PRN PRN Reason: Constipation Melatonin (Melatonin 3 Mg Tablet) 6 mg PO BEDTIME PRN PRN Reason: Insomnia Last Admin: 10/12/25 21:47 Dose: 6 mg Documented By: ALBERT Multivitamins/Vitamin C (Multivitamin Tablet) 1 tab PO DAILY [facility] Last Admin: 10/13/25 08:08 Dose: 1 tab Documented By: JOEL Ondansetron HCl (Ondansetron Hcl 4 Mg/2 Ml Vial) 4 mg IVPUSH Q8H PRN PRN Reason: Nausea and Vomiting Last Admin: 10/13/25 04:58 Dose: 4 mg Documented By: ALBERT Pantoprazole Sodium (Pantoprazole Sodium 40 Mg/10 Ml Vial) 40 mg IVPUSH DAILY@0630 [facility] Last Admin: 10/14/25 06:27 Dose: 40 mg Documented By: PARVIZ Pharmacy Consult (Consult Rx Etoh Phenob Im/Po) 1 each MISCELLANE ONCE PRN; Protocol PRN Reason: Consult order Phenobarbital (Phenobarbital 15 Mg Tablet) 45 mg PO BID [facility]; Protocol Stop: 10/14/25 21:01 Last Admin: 10/13/25 20:35 Dose: 45 mg Documented By: PARVIZ Phenobarbital (Phenobarbital 30 Mg Tablet) 30 mg PO BID [facility]; Protocol Stop: 10/16/25 21:01 Phenobarbital (Phenobarbital 30 Mg Tablet) 30 mg PO DAILY [facility]; Protocol Stop: 10/18/25 09:01 Sodium Chloride (0.9 % Sodium Chloride Flush 3 Ml Syringe) 3 ml IVFLUSH QSHIFT [facility] Last Admin: 10/13/25 20:36 Dose: 3 ml Documented By: PARVIZ Sucralfate (Sucralfate 1 Gm Tablet) 1 gm PO BIDAC [facility] Last Admin: 10/13/25 15:55 Dose: 1 gm Documented By: JOEL Labs 10/14/25 06:50 10/14/25 06:50 Labs: Laboratory Results - last 24 hr 10/13/25 10/14/25 06:29 06:50 MCV 98.2 H MCH 34.3 H MCHC 34.9 RDW 12.8 Plt Count 173 MPV 8.7 L Immature Gran % (Auto) 0.4 Neut % (Auto) 66.5 Lymph % (Auto) 21.2 [place] % (Auto) 6.3 Eos % (Auto) 5.0 H Baso % (Auto) 0.6 Lymph # (Auto) 2.1 [place] # (Auto) 0.6 Eos # (Auto) 0.5 H Baso # (Auto) 0.1 Abs Immat Gran (auto) 0.04 H Absolute Neuts (auto) 6.6 Absolute Nucleated RBC 0.000 Nucleated RBC % (auto) 0.0 PT 12.3 INR 1.0 Anion Gap 15 Estim Creat Clear Calc 103.6 Estimated GFR > 60 Random Glucose 117 H Calcium 8.8 Magnesium 1.4 L* Total Bilirubin 2.4 H AST 91 H ALT 54 H Alkaline Phosphatase 101 Total Protein 7.0 Albumin 3.8 Assessment and Plan (1) Alcohol withdrawal syndrome: Status: Acute Assessment and Plan: 40-year-old male with a past medical history Adams's palsy, depression, hemochromatosis, HTN, presented to the ED complaining of ETOH withdrawal ROSA Phenobarb protocol- last day hel[facility] addiction med consult thiamine, folate, pt/ot seizure precautions Tranaminitis -likely etoh & HCM HypoNa -beers potomania HypoK- repleted to goal daily HypoMg - needs IV mg Hemochromatosis - OP mx HTN cont home meds depression cont home meds DVT PX:lovenox full code Needs to complete withdrawal protocol , likely dc hel[place]io Quality Stroke Does the patient have a stroke diagnosis?: No VTE Prior VTE?: No VTE Risk Level:: Medical - moderate - high VTE Device Contraindication: Treatment Not Indicated VTE Drug Contraindication: N/A - Med Ordered
[2025-10-14 07:28] LABS: Alanine Aminotransferase 47 U/L (0-40); Albumin Level 3.6 g/dL (3.5-5.0); Alkaline Phosphatase 92 U/L (39-117); Anion Gap 11 (12-20); Aspartate Amino Transferase 67 U/L (5-37); Blood Urea Nitrogen 9 mg/dL (9-16); Calcium 8.5 mg/dL (8.4-10.2); Carbon Dioxide 26 mmol/L (22-29); Chloride 104 mmol/L (96-108); Creatinine Clr Calc Pharmacy 104.6; Estimated Glomerular Filt Rate > 60; Magnesium 2.3 mg/dL (1.6-2.6); Potassium 4.3 mmol/L (3.3-5.1); Sodium 137 mmol/L (135-145); Total Protein 6.8 g/dL (6.5-8.0)
[2025-10-14 08:00] VITALS: BP 168/100; PULSE 87; RESP 20; TEMP 37; O2SAT 98
[2025-10-14] MEDS: PHENobarbital 15 MG TABLET 45 MG PO ×2 (09:56→20:06)
[2025-10-14] MEDS: Thiamine HCL 100 MG in 0.9 % Sodium Chloride 100 ML 202 MG IV (11:07)
--- NOTE | 2025-10-14 11:07 | HO.ADDICTCON ---
History of Present Illness Date of Service: 10/14/2025 Chief Complaint: etoh Reason for Consult: AUD Sources of Information: patient interviewed and chart reviewed HPI Narrative: Patient is a 40 year old male with history of AUD, medically admitted with acute alcohol withdrawal. Per chart review patient reported drinking at least 12 nips and a pint of whiskey daily. Patient seen in room 482. He is awake, alert, sitting up in reclined-pleasant and engaged in interview. He reports several year history of unhealthy alcohol use one period of extended abstinence (8 months) a few years ago. Recent ATS admission end of August--resumed drinking shortly after returning home. He states that within the last 3 months drinking increased significantly and impacting other areas of his life. He identifies several stressors, and acknowledges that alcohol has played a role in helping cope with some issues. Denies any other substance use Reports strong family history of AUD Discussed treatment Aside from ATS, patient has trialled several recovery groups-AA, [facility], [facility]. Did not feel connected to any so far. Lives alone, in 2 family house. Brother lives in other apt. 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 In terms of withdrawal, patient reports feeling so much better . Able to eat, although he reports frequent indigestion Denies nausea, tremor, restlessness. Overall, appears comfortable. No tremor noted. Medical Evaluation Reviewed: Yes Review of Systems Constitutional: Reports as per HPI Psychiatric: Reports difficulty concentrating Diagnostics Vital Signs (24Hr): Vital Signs - 24 hr 10/13/25 11:45 10/13/25 16:00 10/13/25 23:40 Temperature 99.6 F 98.1 F 98.2 F Pulse Rate 89 80 69 Respiratory Rate 20 20 16 Blood Pressure 141/87 H 129/96 H 139/94 H Pulse Oximetry 96 96 95 Oxygen Delivery Method Room Air Room Air Room Air 10/14/25 03:51 10/14/25 08:00 Temperature 98.2 F 98.6 F Pulse Rate 70 87 Respiratory Rate 18 20 Blood Pressure 141/83 H 168/100 H Pulse Oximetry 98 Oxygen Delivery Method Room Air Room Air BMI result Body Mass Index 29.3 Labs 10/14/25 06:50 10/14/25 06:50 Labs: Laboratory Results - last 48 hr 10/12/25 10/13/25 10/14/25 11:49 06:29 06:50 WBC 13.6 H 13.5 H 9.9 RBC 5.09 4.62 4.52 L Hgb 17.2 15.7 15.5 Hct 49.7 45.9 44.4 MCV 97.6 99.4 H 98.2 H MCH 33.8 H 34.0 H 34.3 H MCHC 34.6 34.2 34.9 RDW 12.7 12.6 12.8 Plt Count 253 219 173 MPV 8.2 L 8.8 L 8.7 L Immature Gran % (Auto) 0.4 0.4 Neut % (Auto) 64.1 66.5 Lymph % (Auto) 24.9 21.2 [place] % (Auto) 9.4 6.3 Eos % (Auto) 0.5 5.0 H Baso % (Auto) 0.7 0.6 Lymph # (Auto) 3.4 2.1 [place] # (Auto) 1.3 H 0.6 Eos # (Auto) 0.1 0.5 H Baso # (Auto) 0.1 0.1 Abs Immat Gran (auto) 0.06 H 0.04 H Absolute Neuts (auto) 8.7 H 6.6 Absolute Nucleated RBC 0.000 0.000 0.000 Nucleated RBC % (auto) 0.0 0.0 0.0 PT 12.3 INR 1.0 Sodium 141 137 137 Potassium 3.9 3.7 4.3 Chloride 102 99 104 Carbon Dioxide 26 27 26 Anion Gap 17 15 11 L BUN 5 L 8 L 9 Creatinine 0.98 1.03 1.02 Estim Creat Clear Calc 106.9 103.6 104.6 Estimated GFR > 60 > 60 > 60 Random Glucose 122 H 117 H 101 Calcium 9.1 8.8 8.5 Magnesium 1.8 1.4 L* 2.3 Total Bilirubin 0.8 2.4 H 1.2 H AST 58 H 91 H 67 H ALT 50 H 54 H 47 H Alkaline Phosphatase 98 101 92 Total Protein 7.6 7.0 6.8 Albumin 4.1 3.8 3.6 Lipase 21 Urine Opiates Screen Not Detected Ur Buprenorphine Scrn Not Detected Ur Oxycodone Screen Not Detected Urine Methadone Screen Not Detected Urine Fentanyl Screen Not Detected Ur Barbiturates Screen Not Detected Ur Phencyclidine Scrn Not Detected Ur Amphetamines Screen Not Detected U Benzodiazepines Scrn Not Detected Urine Cocaine Screen Not Detected U Marijuana (THC) Screen Not Detected Ethyl Alcohol 156 Mental Status Exam Mental Status Exam Patient Appearance: Appropriate Level of Consciousness: Awake, Appropriate and Alert Patient Behavior: Appropriate, Talkative and Cooperative Affect Description: Calm Speech Pattern: Clear Thought Process: Intact Thought Content: positive for Intact Judgement: Good Medications Medications Current Medications Acetaminophen (Acetaminophen 325 Mg Tablet) 650 mg PO Q6H [facility] Last Admin: 10/14/25 09:55 Dose: 650 mg Baclofen (Baclofen 10 Mg Tablet) 10 mg PO TID [facility] Last Admin: 10/13/25 20:36 Dose: 10 mg Calcium Carbonate (Calcium Carbonate 750 Mg Tab.Chew) 750 mg PO Q4H PRN PRN Reason: Heartburn Last Admin: 10/12/25 21:48 Dose: 750 mg Folic Acid (Folic Acid 1 Mg Tablet) 1 mg PO DAILY [facility] Last Admin: 10/14/25 09:56 Dose: 1 mg Heparin Sodium (Porcine) (Heparin Sodium,Porcine 5,000 Unit/Ml Vial) 5,000 unit SUBCUT Q12H [facility] Last Admin: 10/14/25 04:36 Dose: 5,000 unit Lactated Ringer's (Lr) 1,000 mls @ 125 mls/hr IVCONT .Q8H [facility] Last Admin: 10/14/25 06:27 Dose: 125 mls/hr Thiamine HCl 100 mg/ Sodium (Chloride) 101 mls @ 202 mls/hr IV DAILY [facility] Stop: 10/15/25 08:59 Last Infusion: 10/13/25 11:17 Dose: Infused Magnesium Hydroxide (Milk Of Magnesia 30 Ml Oral.Susp) 30 ml PO DAILY PRN PRN Reason: Constipation Melatonin (Melatonin 3 Mg Tablet) 6 mg PO BEDTIME PRN PRN Reason: Insomnia Last Admin: 10/12/25 21:47 Dose: 6 mg Multivitamins/Vitamin C (Multivitamin Tablet) 1 tab PO DAILY [facility] Last Admin: 10/14/25 09:56 Dose: 1 tab Ondansetron HCl (Ondansetron Hcl 4 Mg/2 Ml Vial) 4 mg IVPUSH Q8H PRN PRN Reason: Nausea and Vomiting Last Admin: 10/13/25 04:58 Dose: 4 mg Pantoprazole Sodium (Pantoprazole Sodium 40 Mg/10 Ml Vial) 40 mg IVPUSH DAILY@0630 [facility] Last Admin: 10/14/25 06:27 Dose: 40 mg Pharmacy Consult (Consult Rx Etoh Phenob Im/Po) 1 each MISCELLANE ONCE PRN; Protocol PRN Reason: Consult order Phenobarbital (Phenobarbital 15 Mg Tablet) 45 mg PO BID JERILYN; Protocol Stop: 10/14/25 21:01 Last Admin: 10/14/25 09:56 Dose: 45 mg Phenobarbital (Phenobarbital 30 Mg Tablet) 30 mg PO BID JERILYN; Protocol Stop: 10/16/25 21:01 Phenobarbital (Phenobarbital 30 Mg Tablet) 30 mg PO DAILY JERILYN; Protocol Stop: 10/18/25 09:01 Sodium Chloride (0.9 % Sodium Chloride Flush 3 Ml Syringe) 3 ml IVFLUSH QSHIFT JERILYN Last Admin: 10/14/25 10:01 Dose: Not Given Sucralfate (Sucralfate 1 Gm Tablet) 1 gm PO BIDAC JERILYN Last Admin: 10/14/25 09:56 Dose: 1 gm Allergies Allergies Allergy/AdvReac Type Severity Reaction Status Date / Time sertraline AdvReac Unknown sexual Verified 10/12/25 09:27 side effects Assessment & Plan Assessment & Plan (1) Alcohol use disorder, severe, dependence: Status: Acute Code(s): F10.20 - Alcohol dependence, uncomplicated Assessment and Plan: Naltrexone 25mg X3 days then increase to 50mg QD continue thiamine and folic acid at home--rx sent Referral sent to [facility]--marketing instructor to schedule appt Safer drinking strategies reviewed and information sheet provided to patient Resources provided for additional recovery supports--including IOP Total time managing care of this patient today __40__ minutes. PMFSH Past Medical History Medical History (Updated 10/14/25 @ 11:07 by Yvette Otero CNP) Hypertension Adams's palsy Depression Hemochromatosis Jaw fracture Family History Family History Father Colon cancer Depression Brother Depression Other FH: mental illness Substance abuse Surgical History Surgical History Surgical history unknown Social History Social History Household Members: None Household Members Other:: family lives downstairs Housing: Apartment Are you a primary certified caregiver to a significant other at home: No Do you presently have visiting nurse or other home services: No Alcohol intake: current Alcohol intake frequency: 3 or more drinks per day Alcohol type: beer and hard liquor Patient Tobacco Use Status: Former Tobacco user Cigarettes Per Day: 3 Years Smoked: 20 e-Cigarette/Vaping Use: Former Use Second Hand Smoke Exposure: No Substance Use Type: Crack/Cocaine service: No Current occupational status: employed 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
[2025-10-14 12:00] VITALS: BP 156/97; PULSE 100; RESP 20; TEMP 36.4; O2SAT 95
[2025-10-14 15:53] VITALS: BP 170/95; PULSE 77; RESP 18; TEMP 36.8; O2SAT 93
[2025-10-14] MEDS: 0.9 % Sodium Chloride Flush 3 ML SYRINGE IVFLUSH ×2 (16:12→20:09)
[2025-10-14 19:47] VITALS: BP 137/96; PULSE 93; RESP 16; TEMP 36.1; O2SAT 96
[2025-10-15] VITALS: BP 138/82; PULSE 72; RESP 16; TEMP 36.1; O2SAT 99
[2025-10-15 03:10] VITALS: BP 155/97; PULSE 86; RESP 17; TEMP 36.2; O2SAT 98
[2025-10-15 07:09] LABS: MANUAL DIFF FLAG NO
[2025-10-15 07:14] LABS: Hematocrit 42.7 % (42.0-52.0); Hemoglobin 14.9 g/dl (14.0-18.0); Imm Gran Abs Auto 0.05 X10*3/uL (0.00-0.03); Imm Gran Pct Auto 0.6 % (0.0-0.4); Lymphocytes Absolute Auto 1.6 X10*3/uL (1.2-4.9); Mean Corpuscular HGB Conc 34.9 g/dl (31.0-36.0); Mean Corpuscular Hemoglobin 34.3 pg (27.0-33.0); Mean Corpuscular Volume 98.4 fL (80.0-98.0); NRBC Abs Auto 0.000 X10*3/uL (0.0-0.012); NRBC Pct Auto 0.0 /100WBC (0.0-0.2); Platelet Count 187 X10*3/uL (160-400); Red Blood Count 4.34 X10*6/uL (4.60-5.80); White Blood Count 8.7 X10*3/uL (4.8-10.8)
[2025-10-15 07:20] LABS: INTERNATIONAL NORM RATIO 1.0 (0.9-1.1); Prothrombin Time 12.7 SEC (11.2-13.5)
[2025-10-15 07:34] LABS: Alanine Aminotransferase 60 U/L (0-40); Albumin Level 3.9 g/dL (3.5-5.0); Alkaline Phosphatase 95 U/L (39-117); Anion Gap 13 (12-20); Aspartate Amino Transferase 81 U/L (5-37); Blood Urea Nitrogen 11 mg/dL (9-16); Calcium 9.1 mg/dL (8.4-10.2); Carbon Dioxide 24 mmol/L (22-29); Chloride 104 mmol/L (96-108); Creatinine Clr Calc Pharmacy 106.7; Estimated Glomerular Filt Rate > 60; Magnesium 2.3 mg/dL (1.6-2.6); Potassium 4.1 mmol/L (3.3-5.1); Sodium 137 mmol/L (135-145); Total Protein 7.2 g/dL (6.5-8.0)
--- NOTE | 2025-10-15 07:55 | P.DS_ITS ---
DS: Providers Provider Date of admission: 10/12/25 14:22 Date of discharge: 10/15/25 Primary care physician: IMANI Jeffries Consults: 10/12/25 10:33 ED Recovery Team Consult Stat Comment: Reason for consultation: etoh detox 10/12/25 14:07 Consult to Comprehensive Care Stat Consulting Provider: [facility] 10/12/25 14:22 Addiction Medicine Provider Routine Consulting Provider: [facility] Reason for consultation: etoh 10/14/25 10:50 Consult to [facility] Routine Consulting Provider: [facility] Attending physician on discharge: Ole Judd Discharging clinician: Ole Judd DS: Diagnosis Discharge Diagnosis (1) Alcohol use disorder, severe, dependence: Status: Acute (2) Alcohol withdrawal syndrome: Status: Acute DS: Summary Hospital Course Hospital Course: hpi:40-year-old male with a past medical history Adams's palsy, depression, hemochromatosis, HTN, presented to the ED complaining of ETOH withdrawal last drunk at 0800 and he was noted to still have an elevated alcohol level. He drinks at least 12 beers a day and half a pint of whisky. He said that he went to detox today but they did not have a bed available today so he came to the ED. He denied history of DT's or withdrawal seizures. He had elevated liver enzymes and tachycardia. He was started on phenobarbitol and will be admitted for management of alcohol withdrawal. Hospital course: 40 year old man admitted with alcohol withdrawal syndrome: Patient was admitted for alcohol withdrawal: Started on CIWA, phenobarb protocol, thiamine folic acid: Seems to be improved significantly. Mild tachycardia initially was thought to be related to alcohol withdrawal improved, resume home atenolol also. Transaminitis (lft's chronic elevated)likely related to above alcohol use. Monitor LFT outpatient-further workup outpatient as per PCP. Hypotension box continue atenolol. Patient was strongly advised to abstain from alcohol. Plan: Alcohol withdrawal-improved with phenobarb protocol. Hypokalemia and hypomagnesemia improved with repletion. Patient was strongly advised to abstain from alcohol. Above management discussed with the patient detail length he understand and in agreement with the above plan, time spent 50 minute. Time Attestation Total time managing care of this patient today: 50 mintues. Discharge Coordination Time (in mins): 50min Quality: Safe Use of Opioids Does Pt have an Active Cancer Diagnosis on the Problem List?: No Quality: Stroke Does the patient have a stroke diagnosis?: No Physical Exam Exam: Exam: Appearance: Alert.? Oriented X3.? cvs: rrr, [id number] , no murmur res: clear to auscultation ,no rhonchii or wheezing abd: no rebound or guarding ,nt, bs present. ext pulses present , no cyanosis . neuro: axo3 , nonfocal. Vital Signs: Vital Signs: Last Vital Signs Temp 97.1 F 10/15/25 03:10 Pulse 86 10/15/25 03:10 Resp 17 10/15/25 03:10 BP 155/97 H 10/15/25 03:10 Pulse Ox 98 10/15/25 03:10 O2 Del Method Room Air 10/15/25 03:10 BMI result Body Mass Index 29.3 DS: Data Data Completed and Pending Labs on day of discharge: Laboratory Results - last 24 hr 10/15/25 06:31 WBC 8.7 RBC 4.34 L Hgb 14.9 Hct 42.7 MCV 98.4 H MCH 34.3 H MCHC 34.9 RDW 12.7 Plt Count 187 MPV 8.7 L Immature Gran % (Auto) 0.6 H Neut % (Auto) 71.2 Lymph % (Auto) 18.3 L [place] % (Auto) 5.6 Eos % (Auto) 3.6 Baso % (Auto) 0.7 Lymph # (Auto) 1.6 [place] # (Auto) 0.5 Eos # (Auto) 0.3 Baso # (Auto) 0.1 Abs Immat Gran (auto) 0.05 H Absolute Neuts (auto) 6.2 Absolute Nucleated RBC 0.000 Nucleated RBC % (auto) 0.0 PT 12.7 INR 1.0 Sodium 137 Potassium 4.1 Chloride 104 Carbon Dioxide 24 Anion Gap 13 BUN 11 Creatinine 1.00 Estim Creat Clear Calc 106.7 Estimated GFR > 60 Random Glucose 102 Calcium 9.1 D Magnesium 2.3 Total Bilirubin 0.8 AST 81 H ALT 60 H Alkaline Phosphatase 95 Total Protein 7.2 Albumin 3.9 Discharge Plan Discharge Anticipated Discharge Date/Time: 10/15/25 07:45 Patient Disposition: Home, Self-Care Discharge Diagnosis: alcohol withdrawals ,Tranaminitis [place] [facility] [place] Group] - 10/19/25 2:00 pm Referral Note: Intake appt. Please bring photo ID and insurance card. If you can not keep this appt, please call to Rupinder Stevens, [employer] [Primary Care Provider, Internal Medicine] - 1 Week Discharge Medications: New naltrexone 50 mg tablet 50 mg PO DAILY Qty: 90 0RF Rx Instructions: take half tab daily for 3 days, then increase to one tab daily thiamine HCl (vitamin B1) 100 mg tablet 100 mg PO DAILY Qty: 90 0RF folic acid 1 mg tablet 1 mg PO DAILY Qty: 90 0RF Continued atenolol 25 mg tablet 25 mg PO DAILY Qty: 90 0RF Held ibuprofen 800 mg tablet 800 mg PO Q8H PRN (Reason: pain) Hold Instructions: Resume on 10/18/25. Discharge Orders: Discharge Order (Routine); Ordered 10/15/25 Ordered By: Ole Judd Diet: Advance to usual diet Activity on Discharge: As tolerated Stand Alone Forms: Patient Portal Discharge page Print Language: Hungarian Care Plan Goals: Alcohol withdrawal-improved with phenobarb protocol. Hypokalemia and hypomagnesemia improved with repletion. htn -blood pressure flactuating ,restarted home atenolol. Patient was strongly advised to abstain from alcohol. Health Concerns: As above. Plan of Treatment: As above. Assessment: As above. Discharge Date/Time: 10/15/25 14:42
[2025-10-15 08:00] VITALS: BP 167/100; PULSE 81; RESP 18; TEMP 37.2; O2SAT 97
[2025-10-15 09:27] VITALS: BP 167/100; PULSE 90
[2025-10-15] MEDS: 0.9 % Sodium Chloride Flush 3 ML SYRINGE IVFLUSH (09:28)
[2025-10-15 12:00] VITALS: BP 142/82; PULSE 70; RESP 18; TEMP 36.4; O2SAT 97
--- NOTE | 2025-10-15 12:16 | MHC.CM.PN ---
PATIENT IS MEDICALLY CLEARED FOR DISCHARGE HOME SELF-CARE, HE WILL TRANSPORT HIMSELF HOME TODAY, HIS TRUCK IN THE [facility].
--- NOTE | 2025-10-15 13:55 | MHC.RECOVRN ---
TW met with pt in 48-1 after consult received by Addiction Medicine for alcohol use.? Pt reports consuming 1 case of beer and a pint of whiskey daily for several years. He does report a period of abstinence for 8months ? few years ago?.Also reports 3 ATS admissions this year but has not been able to maintain sobriety. Pt feels at this point, his goal is to cut down his drinking to ?a safer level. I don?t want to keep feeling this way?. Pt identified several life stressors and feels he is using alcohol as a coping mechanism.? Pt reports exploring several pathways to recovery such as AA and [facility] but does not feel they were helpful. TW spoke at length about reattempting peer support with an open mind and willingness to try something new. Pt was agreeable and vocalized he heard of a good AA meeting on Saturday he would like to attend.? Pt was also agreeable to starting Naltrexone for AUD, accepted a referral to [facility], and states he will be contacting [facility] to start an IOP program.?? [facility] appt added to pt discharge summary and pt provided ACS team contact information for questions or concerns
== END 2025-10-15 14:42 | disposition home or self-care (01) | DRG 775 ==
LOC: HO.ED 14:00 → HO.EDOVER 14:30 → HO.IMC 15:20
PROVIDERS: Physician Assistant; Student in an Organized Health Care Education/Training Program; Admitting Provider Nurse Practitioner Acute Care; Emergency Provider Emergency Medicine Emergency Medical Services; PCP Nurse Practitioner Family; Visit Provider Internal Medicine
DX: F10.239 Alcohol dependence with withdrawal, unspecified (principal); F10.229 Alcohol dependence with intoxication, unspecified; I42.2 Other hypertrophic cardiomyopathy; E87.1 Hypo-osmolality and hyponatremia; E83.119 Hemochromatosis, unspecified; I10 Essential (primary) hypertension; Y90.6 Blood alcohol level of 120-199 mg/100 ml; F32.A Depression, unspecified; E87.6 Hypokalemia; E83.42 Hypomagnesemia; Z87.891 Personal history of nicotine dependence; Z79.899 Other long term (current) drug therapy
CPT/HCPCS: 36415; 80053; 80307; 83690; 83735; 85025; 85027; 85610; 97161; 97165; 99285; J0737; J1200; J1644; J2405; J2470; J2560; J2765; J3360; J3411; J3475; J7120; S9485

== ENCOUNTER → 2025-10-12 14:22 | Outpatient (BNV) | payer OTHER, SELFPAY | PROVIDERS: Admitting Provider Nurse Practitioner Acute Care; Emergency Provider Emergency Medicine Emergency Medical Services; PCP Nurse Practitioner Family; Visit Provider Nurse Practitioner Psychiatric/Mental Health | DX: F10.20 Alcohol dependence, uncomplicated (principal) | CPT/HCPCS: 99222; 99499 ==

== ENCOUNTER → 2025-10-12 14:22 | Outpatient (BNV) | payer OTHER, SELFPAY | PROVIDERS: Admitting Provider Nurse Practitioner Acute Care; Emergency Provider Emergency Medicine Emergency Medical Services; PCP Nurse Practitioner Family; Visit Provider Nurse Practitioner Acute Care | DX: F10.939 Alcohol use, unspecified with withdrawal, unspecified (principal) | CPT/HCPCS: 99233 ==

== ENCOUNTER 2025-10-27 13:54 | Emergency (ER) | payer OTHER, SELFPAY ==
--- NOTE | 2025-10-27 14:54 | ED_ITS ---
HPI - General Adult General Chief complaint: ETOH/Substance Use Stated complaint: detoxing, doesn't feel well Time Seen by Provider: 10/27/25 16:44 Source: patient, RN notes reviewed and old records reviewed Mode of arrival: ambulatory Limitations: no limitations History of Present Illness ED Provider: Ziggy HPI narrative: 40-year-old male with past medical history significant for alcohol dependence, hemochromatosis presents for evaluation of alcohol withdrawal. the patient was recently admitted here a week and a half ago and discharged on 10/15/2025 for alcohol withdrawal. He reports that he requested to be discharged home it did not go to a detox facility after his hospitalization. He reports that his mother recently and he continue drinking. He has been drinking 10-15 drinks per day. His last drink was a couple of hours prior to arrival. He believes he is going through alcohol withdrawal again. He feels anxious, tremulous and nauseous he has never had any alcohol withdrawal seizures in his never required intubation for alcohol withdrawal. He denies any other substance abuse denies any fevers, chills or pain Related Data Home Medications ?Medication ?Instructions ?Recorded ?Confirmed ibuprofen 800 mg tablet 800 mg PO Q8H PRN pain 10/1210/12/25 Held on 10/15/25. Instructions: Resume on 10/18/25. Previous Rx's ?Medication ?Instructions ?Recorded atenolol 25 mg tablet 25 mg PO DAILY #90 tabs 03/28 folic acid 1 mg tablet 1 mg PO DAILY #90 tabs 10/14 naltrexone 50 mg tablet 50 mg PO DAILY #90 tabs 10/04 11/28 thiamine HCl (vitamin B1) 100 mg 100 mg PO DAILY #90 t abs 10/14/25 tablet Allergies Allergy/AdvReac Type Severity Reaction Status Date / Time sertraline AdvReac Unknown sexual Verified 10/27/25 14:58 side effects Review of Systems 2 Constitutional: Constitutional: Denies body ache(s), Denies chills, Denies fever(s) and Denies headache(s) Eyes: Eyes: Denies blurry vision ENT: Denies headache(s) Cardiovascular: Cardiovascular: Denies chest pain Respiratory: Respiratory: Denies cough Gastrointestinal: Gastrointestinal: Denies abdominal pain, Reports nausea and Denies vomiting Musculoskeletal: Musculoskeletal: Denies back pain Integumentary/Breasts: Skin/Breast: Denies rash Neurologic: Denies headache(s) Psychiatric: Psychiatric: Reports anxiety PMFSH Past Medical History Medical History (Updated 10/27/25 @ 20:16 by Nacho Trinh) Hypertension Adams's palsy Depression Hemochromatosis Jaw fracture Surgical History Surgical history unknown Family History Family History Father Colon cancer Depression Brother Depression Other FH: mental illness Substance abuse Social History Social History Household Members: None Household Members Other:: family lives downstairs Housing: Apartment Are you a primary laboratory animal caretaker to a significant other at home: No Do you presently have visiting nurse or other home services: No Alcohol intake: current Alcohol intake frequency: 3 or more drinks per day Alcohol type: beer and hard liquor Patient Tobacco Use Status: Former Tobacco user Cigarettes Per Day: 3 Years Smoked: 20 e-Cigarette/Vaping Use: Former Use Second Hand Smoke Exposure: No Substance Use Type: Crack/Cocaine Advance Directives: No Advance Directives Information Provided: No service: No Current occupational status: employed 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 Current occupational exposures/hazards: No Cognitive needs: No Hearing needs: No Vision needs: No Physical Exam ED Vital Signs: Vital Signs - 24 hr 10/27/25 14:57 10/27/25 17:03 10/27/25 17:22 Temperature 98 F 98.6 F Pulse Rate 94 101 H 90 Respiratory Rate 18 20 13 Blood Pressure 157/114 H 173/108 H 115/102 H Pulse Oximetry 96 98 98 Oxygen Delivery Method Room Air Room Air Room Air BMI result Body Mass Index 28.1 Const General: healthy appearing, comfortable, no acute distress, alert and awake Nutritional Appearance: well nourished Orientation/consciousness: patient oriented x3 HENMT Head: Yes normocephalic and Yes atraumatic Eyes Eyelids: Yes eyelids normal Conjunctivae: conjunctivae normal Sclerae: sclerae normal Corneas: corneas normal Pupils: Equal, round and reactive pupils present EOM: EOMs intact bilaterally Neck Neck: Yes full ROM Resp Effort & Inspection: normal respiratory effort, able to speak in complete sentences and not labored GI Inspection: No distended Palpation (GI): Soft to palpation, not firm, nontender, no guarding and not rigid Skin General skin exam: no rashes or lesions noted and elasticity normal Neuro General: patient oriented x3 Cranial nerves: Yes Equal, round and reactive pupils present and Yes Bilaterally intact EOM present Cognition (Neuro): normal cognition Extrem Other: Moving all extremities well without any obvious deformities Course Course Course Narrative: This is a rapid medical exam performed by Elinor Muñoz NP: Additional HPI, ROS, PE not included below will be deferred to primary provider. Patient is a 40y/o M presenting to the ED stating that he is detoxing from alcohol. Last drink 2 hours ago, has had around 10 drinks today. Denies hx of withdrawal seizures. Reports drinking 10-15 drinks of hard alcohol daily. Complains of facial tingling and tremors, nausea. Plan: EKG, labs Reevaluation(s) Reevaluation #1: The recovery team was actually able to find a detox bed for the patient and [facility]. The patient had no other beds available. He declined this bed because he feels it is too far and he requested to be discharged. the patient is medically cleared, hemodynamically stable and he is discharged in stable condition Time: 20:14 Medications Administered Generic Name Dose Route Start Last Admin Trade Name Freq PRN Reason Stop Dose Admin Lorazepam 2 mg 10/27/25 16:49 10/27/25 17:25 Lorazepam 1 Mg Tablet PO 2 mg Q4H PRN Administration Alcohol Withdrawal Discontinued Medications Generic Name Dose Route Start Last Admin Trade Name Freq PRN Reason Stop Dose Admin Lactated Ringer's 1,000 mls @ 999 mls/hr 10/27/25 17:00 10/27/25 18:32 Lr IV 10/27/25 18:00 Infused .Q1H1M JERILYN Infusion Folic Acid 1 mg/ Sodium 50.2 mls @ 100.4 mls/hr 10/27/25 16:49 10/27/25 18:32 Chloride IV 10/27/25 17:18 Infused ONCE ONE Infusion Thiamine HCl 400 mg/ Sodium 104 mls @ 208 mls/hr 10/27/25 16:49 10/27/25 18:33 Chloride IV 10/27/25 17:18 Infused ONCE ONE Infusion Ondansetron HCl 4 mg 10/27/25 20:07 10/27/25 20:11 Ondansetron Hcl 4 Mg/2 Ml Vial IVPUSH 10/27/25 20:08 4 mg ONCE ONE Administration Medical Decision Making Lab Data 10/27/25 15:09 10/27/25 15:09 Labs: Lab Results 10/27/25 Range/Units 15:09 WBC 10.4 (4.8-10.8) X10*3/uL RBC 5.19 (4.60-5.80) X10*6/uL Hgb 17.6 (14.0-18.0) g/dl Hct 51.7 D (42.0-52.0) % MCV 99.6 H (80.0-98.0) fL MCH 33.9 H (27.0-33.0) pg MCHC 34.0 (31.0-36.0) g/dl RDW 12.9 (11.0-16.0) % Plt Count 228 (160-400) X10*3/uL MPV 8.3 L (9.4-12.4) fL Immature Gran % (Auto) 0.4 (0.0-0.4) % Neut % (Auto) 70.1 (45-73) % Lymph % (Auto) 19.9 L (20-40) % Hawkins % (Auto) 7.0 (2-11) % Eos % (Auto) 1.4 (0-4) % Baso % (Auto) 1.2 (0-2) % Lymph # (Auto) 2.1 (1.2-4.9) X10*3/uL Hawkins # (Auto) 0.7 (0.1-1.2) X10*3/uL Eos # (Auto) 0.1 (0.0-0.4) X10*3/uL Baso # (Auto) 0.1 (0.0-0.2) X10*3/uL Abs Immat Gran (auto) 0.04 H (0.00-0.03) X10*3/uL Absolute Neuts (auto) 7.3 (2.0-8.3) x10*3/uL Absolute Nucleated RBC 0.000 (0.0-0.012) X10*3/uL Nucleated RBC % (auto) 0.0 (0.0-0.2) /100WBC PT 12.0 (11.2-13.5) SEC INR 1.0 (0.9-1.1) Sodium 138 (135-145) mmol/L Potassium 4.6 (3.3-5.1) mmol/L Chloride 100 (96-108) mmol/L Carbon Dioxide 25 (22-29) mmol/L Anion Gap 18 (12-20) BUN 8 L (9-16) mg/dL Creatinine 0.94 (0.5-1.4) mg/dL Estim Creat Clear Calc 111.3 Estimated GFR > 60 Random Glucose 134 H (60-115) mg/dL Calcium 9.7 D (8.4-10.2) mg/dL Magnesium 2.0 (1.6-2.6) mg/dL Total Bilirubin 0.8 (0.0-1.0) mg/dL AST 107 H (5-37) U/L ALT 117 H (0-40) U/L Alkaline Phosphatase 109 (39-117) U/L Total Protein 8.6 H (6.5-8.0) g/dL Albumin 4.6 (3.5-5.0) g/dL Ethyl Alcohol 99 mg/dL Discharge Plan Discharge Clinical Impression: Alcohol dependence Patient Disposition: Home, Self-Care Instructions: Abuse of Alcohol (ED) Additional Instructions: you declined a detox bed and requested discharge. Alcohol use disorder You were seen in the Emergency Department today for treatment of alcohol use disorder.? You may have been given medications to help with your withdrawal symptoms.? Please do not drink alcohol with them. This is very dangerous and can cause respiratory depression or other adverse reactions depending on the medication. If you would like to cut down or stop your alcohol use please consider calling our outpatient Addiction Treatment office:? [facility] ([id number] [id number] [address] [place] [address] You have also been given a list of treatment providers in the area that can assist as well.? If you experience seizures, vomiting blood, black stools, falls, severe headache, chest pain, fevers, trouble breathing, hallucinations or any other concerns you need to call 911 or seek immediate care. Please stay hydrated. Prescriptions: No Action atenolol 25 mg tablet 25 mg PO DAILY Qty: 90 0RF ibuprofen 800 mg tablet 800 mg PO Q8H PRN (Reason: pain) naltrexone 50 mg tablet 50 mg PO DAILY Qty: 90 0RF Rx Instructions: take half tab daily for 3 days, then increase to one tab daily thiamine HCl (vitamin B1) 100 mg tablet 100 mg PO DAILY Qty: 90 0RF folic acid 1 mg tablet 1 mg PO DAILY Qty: 90 0RF Print Language: Bulgarian
[2025-10-27 14:57] VITALS: BP 157/114; PULSE 94; RESP 18; TEMP 36.6; O2SAT 96; BMI 28.1
--- NOTE | 2025-10-27 14:57 | ECG_ITS ---
Test Reason : DETOX Blood Pressure : */* mmHG Vent. Rate : 90 BPM Atrial Rate : 90 BPM P-R Int : 172 ms QRS Dur : 90 ms QT Int : 368 ms P-R-T Axes : 53 116 50 degrees QTcB Int : 450 ms Normal sinus rhythm Right axis deviation Abnormal ECG When compared with ECG of 09-Jul-2025 16:08, Nonspecific T wave abnormality now evident in Anterior leads Referred By: Gela Muñoz Electronically Signed By: TRINA MARX MD
[2025-10-27 15:13] LABS: MANUAL DIFF FLAG NO
[2025-10-27 15:18] LABS: Hematocrit 51.7 % (42.0-52.0); Hemoglobin 17.6 g/dl (14.0-18.0); Imm Gran Abs Auto 0.04 X10*3/uL (0.00-0.03); Imm Gran Pct Auto 0.4 % (0.0-0.4); Lymphocytes Absolute Auto 2.1 X10*3/uL (1.2-4.9); Mean Corpuscular HGB Conc 34.0 g/dl (31.0-36.0); Mean Corpuscular Hemoglobin 33.9 pg (27.0-33.0); Mean Corpuscular Volume 99.6 fL (80.0-98.0); NRBC Abs Auto 0.000 X10*3/uL (0.0-0.012); NRBC Pct Auto 0.0 /100WBC (0.0-0.2); Platelet Count 228 X10*3/uL (160-400); Red Blood Count 5.19 X10*6/uL (4.60-5.80); White Blood Count 10.4 X10*3/uL (4.8-10.8)
[2025-10-27 15:33] LABS: Alanine Aminotransferase 117 U/L (0-40); Albumin Level 4.6 g/dL (3.5-5.0); Alkaline Phosphatase 109 U/L (39-117); Anion Gap 18 (12-20); Aspartate Amino Transferase 107 U/L (5-37); Blood Urea Nitrogen 8 mg/dL (9-16); Calcium 9.7 mg/dL (8.4-10.2); Carbon Dioxide 25 mmol/L (22-29); Chloride 100 mmol/L (96-108); Creatinine Clr Calc Pharmacy 111.3; Estimated Glomerular Filt Rate > 60; Magnesium 2.0 mg/dL (1.6-2.6); Potassium 4.6 mmol/L (3.3-5.1); Sodium 138 mmol/L (135-145); Total Protein 8.6 g/dL (6.5-8.0)
[2025-10-27 15:44] LABS: INTERNATIONAL NORM RATIO 1.0 (0.9-1.1); Prothrombin Time 12.0 SEC (11.2-13.5)
[2025-10-27 17:03] VITALS: BP 173/108; PULSE 101; RESP 20; TEMP 37; O2SAT 98
[2025-10-27 17:22] VITALS: BP 115/102; PULSE 90; RESP 13; O2SAT 98
[2025-10-27] MEDS: Lactated Ringers 1,000 ML 999 ML IV (17:26)
--- NOTE | 2025-10-27 20:14 | PC.NURSE ---
Pt medicated per mar Pt refusing detox bed and requesting to be d/c, care team and provider aware. Plan of care ongoing
[2025-10-27 20:21] VITALS: BP 155/97; PULSE 95; RESP 20; TEMP 37.2; O2SAT 97
[2025-10-27 20:30] VITALS: BP 155/97; PULSE 95; RESP 20; TEMP 37.2; O2SAT 97
== END 2025-10-27 20:53 | disposition home or self-care (01) ==
PROVIDERS: Registered Nurse Emergency; Emergency Provider Emergency Medicine; PCP Nurse Practitioner Family
DX: F10.20 Alcohol dependence, uncomplicated (principal); Y90.4 Blood alcohol level of 80-99 mg/100 ml; F41.9 Anxiety disorder, unspecified; I10 Essential (primary) hypertension; E78.5 Hyperlipidemia, unspecified; E55.9 Vitamin D deficiency, unspecified; F33.9 Major depressive disorder, recurrent, unspecified; Z87.891 Personal history of nicotine dependence; Z79.899 Other long term (current) drug therapy
CPT/HCPCS: 36415; 80053; 80307; 83735; 85025; 85610; 93005; 96361; 96365; 96368; 96375; 99285; J1808; J2405; J3411; J7120; S9485

== ENCOUNTER → 2025-10-27 14:57 | Outpatient (BNV) | payer OTHER, SELFPAY | PROVIDERS: Emergency Provider Emergency Medicine; PCP Nurse Practitioner Family; Visit Provider Internal Medicine Cardiovascular Disease | DX: R94.31 Abnormal electrocardiogram [ECG] [EKG] (principal); F10.130 Alcohol abuse with withdrawal, uncomplicated | CPT/HCPCS: 93010 ==

== ENCOUNTER 2025-10-29 10:18 | Outpatient (REF) | payer OTHER, SELFPAY ==
[2025-10-29 17:16] LABS: Hematocrit 49.4 % (42.0-52.0); Hemoglobin 16.9 g/dl (14.0-18.0); Mean Corpuscular HGB Conc 34.2 g/dl (31.0-36.0); Mean Corpuscular Hemoglobin 34.3 pg (27.0-33.0); Mean Corpuscular Volume 100.2 fL (80.0-98.0); NRBC Abs Auto 0.000 X10*3/uL (0.0-0.012); NRBC Pct Auto 0.0 /100WBC (0.0-0.2); Platelet Count 179 X10*3/uL (160-400); Red Blood Count 4.93 X10*6/uL (4.60-5.80); White Blood Count 10.2 X10*3/uL (4.8-10.8)
[2025-10-29 17:49] LABS: Microalbum/Creatinine Ratio Ur 85.8 ug/mg cr (<30)
[2025-10-29 18:10] LABS: Cholesterol 235 mg/dL (<200); HDL Cholesterol 43 mg/dL (>40); Triglycerides 383 mg/dL (<150)
[2025-10-29 18:50] LABS: Folate > 20.0 ng/mL (> or = 4.0); Vitamin B12 689 pg/mL (200-900)
[2025-10-30 05:21] LABS: HBS Num1 105.13 mIU/mL (0-7.99); HBc Num1 0.08 S/CO (0.00-0.79); HBsAGNum1 0.55 S/CO (0.00-0.99); HIV Num 1 0.06 S/CO (0.00-0.99); Hepatitis A Antibody IgM 0.18 Index (0-0.79); Hepatitis B Surface Antigen Negative (Negative); ~HepC Num1 0.13 S/CO (0.00-0.79); ~Hepatitis A Antibody IgM Nonreactive (Nonreactive); ~Hepatitis B Surface Antibody REACTIVE (Nonreactive); ~Hepatitis C Antibody Nonreactive (Nonreactive)
[2025-10-30 05:22] LABS: Syphilis Screen Nonreactive (Nonreactive)
[2025-10-30 09:12] LABS: CT PCR Urine NOT DETECTED (Not Detect.); NG PCR Urine NOT DETECTED (Not Detect.)
== END 2025-10-29 10:19 | disposition home or self-care (01) ==
LOC: HO.WFDLDS 10:18
PROVIDERS: PCP Nurse Practitioner Family; Visit Provider Nurse Practitioner Family
DX: Z00.00 Encounter for general adult medical examination without abnormal findings (principal); R74.01 Elevation of levels of liver transaminase levels; R05.9 Cough, unspecified; R10.12 Left upper quadrant pain; I10 Essential (primary) hypertension; F33.1 Major depressive disorder, recurrent, moderate; F10.20 Alcohol dependence, uncomplicated; K70.30 Alcoholic cirrhosis of liver without ascites; E83.110 Hereditary hemochromatosis; Z23 Encounter for immunization; Z80.0 Family history of malignant neoplasm of digestive organs; Z11.3 Encounter for screening for infections with a predominantly sexual mode of transmission; Z98.890 Other specified postprocedural states; Z12.5 Encounter for screening for malignant neoplasm of prostate
CPT/HCPCS: 80061; 82043; 82306; 82570; 82607; 82746; 83036; 84153; 85027; 86704; 86706; 86709; 86780; 86803; 87340; 87389; 87491; 87591; 96127

== ENCOUNTER 2025-10-29 10:18 | Outpatient (AMB) | payer OTHER, SELFPAY ==
--- NOTE | 2025-10-29 10:28 | A.OFFPC_ITS ---
Vital Signs 10/29/25 10:30 10/29/25 10:35 Height 5 ft 9 in Weight 188 lb 4 oz BMI 27.8 BP 132/94 H 136/88 Blood Pressure Location Rt brachial Rt brachial Position Sitting Sitting Respiration 14 Pulse 110 H 95 Pulse Source Pulse Oximeter Auscultation Temp 98.5 F Temp Source Oral Pulse Oximetry (%) 96 Oxygen Delivery Method Room Air Intake Visit Reasons: dc from [facility] Intake Note: Emergency room follow Disaster Recovery Coordinator Required: No Allergies sertraline Adverse Reaction (Unknown, Verified 10/29/25 10:31) sexual side effects Medication List - Last Reconciled 10/29/25 by Rupinder Ochoa, FLIGHT DATA TECHNICIAN- atenolol 25 mg PO DAILY folic acid 1 mg PO DAILY ibuprofen 800 mg PO Q8H PRN Held on 10/15/25. Instructions: Resume on 10/18/25. 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 Living at home w/ brother who is also alcoholic Fhx; Mom 2024 [facility] Maintenance Tdap 2016 Flu 10/29/25 Colon & EGD 11/2024 [facility] [place] 5 years Specialist [facility] Addiction Med no longer following Optho referred today History of Present Illness The patient is a 40 year old male presenting for a transitional care management visit and a complete physical exam. Alcohol Use Disorder: - The patient has a history of alcohol d ependence and has been admitted to [facility] multiple times, including an inpatient stay from 10/12 to 10/15 where he was advised to go to detox. DC summary reviewed. - He did not go to detox and returned to the emergency room on 10/27 due to continued alcohol consumption. - Recent stressors include the of his best friend in September and his mother's passing 10 days before [place]. - His goal is to reduce his alcohol inta ke, not to stop completely, and he has been sober for three days. - Liver function tests from 10/27 were e levated with an AST of 107 and an ALT of 117. - He notes that his brother, who lives d [facility], drinks heavily and this is a trigger for him. - He has previously tried naltrexone wit h some benefit but is not currently taking it. - He adheres to taking folic acid and th iamine. - Has depression and anxiety, does not w ant meds; tried AA before and it was not helpful - Thinking about joining w/ a friend - No etoh since 10/27/2025 Cough: - The patient reports coughing up phlegm for the past month, which has an abnorm al taste. - He denies smoking but uses a dip pouch about once a week. Left Upper Quadrant Pain: - He reports new onset of mild (2/10) pa in in his left upper quadrant which started today and is associated with his cough. HTN bp at goal w atenolol, taking as directed. Past Medical History - Major depressive disorder - Alcohol dependence, with multiple admi ssions for detoxification - Adams's palsy - Lyme disease - Staphylococcal infection on genitals - liver disease - Esophageal erythema with erosions on p rior EGD Past Surgical History - Three teeth extracted Family History - Colon cancer - Cirrhosis due to alcoholism - Mother from squamous cell carcinoma of the anus. Social History - Substance Use: Reports history of sign ificant alcohol use, drinking 15-20 drinks at times, and identifies being at home as a major trigger. - Tobacco Use: Denies smoking but report s occasional use of a dip pouch approximately once a week. 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 Not working at this time - Living Situation: Lives in a home wher e his brother, who resides downstairs, drinks heavily, which the patient finds to be a trigger. - Support System: Has attempted AA in e past with negative experiences but has a friend in recovery he may attend N.A. meetings with. Review of Systems - Constitutional: Denies weight loss; re ports weight has been stable. - Eyes: Reports using reading glasses. D enies vision loss. - Respiratory: Reports a productive coug h with foul-tasting phlegm for the past month. - Gastrointestinal: Reports new onset of mild (2/10) left upper quadrant pain. Denies hematochezia; reports stools are not black. - Genitourinary: Reports urinating fine. Endorses curiosity in checking for sexually transmitted diseases. Physical Exam General: Well developed, well nourished, in no acute distress. Appears stated age. Head: Normocephalic, atraumatic. Eyes: Pupils are equal, round and reactive to light and accommodation. Conjunctivae are clear. Scleras nonicteric bilat. Vision grossly normal. Ears: TMs clear AU, EACS WNL Nose: Patent, without discharge. Neck: No carotid bruit bilat. Supple, no adenopathy or thyromegaly. Breast: Edu on SBE Lungs: Clear to auscultation bilaterally. No rales, rhonchi or wheeze noted. Good air flow in all tee. Heart: Regular rate and rhythm. No murmurs, click, rubs or gallops are noted. Abdomen: Bowel sounds present in all quadrants. The abdomen is soft, nontender, with no masses or organomegaly noted. No hernias are noted. : Deferred. Reviewed FARIBA & recommendations Pulses: Peripheral pulses are equal and palpable bilaterally. Extremities: No clubbing, cyanosis nor edema is noted. Neurologic: Gait and station normal. Cranial Nerves 2-12 intact. Motor strength grossly symmetrical and intact. No sensory loss. Balance normal. Skin: No rashes, ulcers, or lesions noted. Turgor is good. Skin color is good. Hair and nails are without abnormalities. Psych: Normal eye contact, affect and mood appropriate, and normal interactions. Patient is alert and appropriate to context. History of major depressive disorder noted. Results - Labs (10/27): AST 107 U/L, ALT 117 U/L . - Prior Endoscopy (EGD): Erythema with e rosions, stomach normal, no stigmata of chronic liver disease. - Prior Colonoscopy: Normal, with recomm endation to repeat in 5 years. Medical Decision Making The patient is a 40-year-old male with a history of severe alcohol use disorder, major depressive disorder, and significant recent psychosocial stressors, including the deaths of his mother and best friend. He presents for a transitional care management visit following recent ER visits and hospitalization for his alcohol use. His liver enzymes are significantly elevated (AST 107, ALT 117), indicating active alcoholic hepatitis, which has previously improved with decreased alcohol intake. The patient's goal is harm reduction rather than complete abstinence, and the plan is to support this by referring him to an intensive outpatient program (IOP) and involving our in- office career development counselor, Rashaad, for resource navigation. The patient also reports a month-long productive cough. While the lung exam is clear, a chest x-ray is warranted to rule out underlying pulmonary pathology. Given his prior EGD findings of erythema with erosions, a trial of a proton-pump inhibitor is also initiated to assess for a gastroesophageal reflux contribution to his cough. Antidepressants were offered to address his depression and grief, but he declined due to past intolerance. Health maintenance was addressed by administering an influenza vaccine, updating routine wellness labs (lipids, A1c, PSA), screening for STIs, and placing a referral for a routine eye exam. Plan Health Maintenance - The patient will receive his influenza vaccination today. - A referral was placed for a routine ey e exam with [facility] in [place]. - Lab orders were placed for a lipid duron el, HbA1c, and PSA. - A urine sample will be collected today for STI screening. 1. Alcohol Use Disorder - The patient's goal is harm reduction r ather than complete abstinence. - He will follow up with an intensive ou tpatient program (IOP) in [place] near [facility]. - A referral will be sent to Rashaad, the office's career development counselor, to assist with resource navigation and follow-up for the IOP. - Continue taking thiamine and folic aci d daily. - The patient is not currently taking na ltrexone and has a history of becoming violently ill from the injectable formulation. 2. Cough - A chest x-ray will be obtained as a wa lk-in at the [place] location to evaluate for pulmonary causes. - A prescription will be sent to [facility] for a 3-month course of a prot on-pump inhibitor to be taken daily on an empty stomach to evaluate for a GI contribution to his symptoms. 3. Major Depressive Disorder - The patient was offered an antidepress ant but declined due to prior negative experiences. - Support for his mental health will be addressed through the IOP and senior water resources engineer referral. - Denies SI/HI contracts for safety, cri sis info provided @ d/c Patient Instructions - You will receive a flu shot today in t office. - Go to the lab after your visit to have your blood drawn and to provide a urine sample. - Please get a chest x-ray at the walk-i n clinic located at [address] [place] [address] in [place]. They are open from 9:00 AM to 2:00 PM. - A referral has been placed for an eye exam. You can call [facility] in [place] to schedule an appointment anytime in the next year. - Someone from our office named Rashaad jacqueline ll call you to help you get connected with the support program for alcohol use in [place]. - [facility]. Take one pill every morning on an empty stomach, 30 minutes before any other food, drink, or medications. - Continue taking your atenolol, folic a alex, and thiamine as prescribed. - Your test results will be available on the patient portal, and I will send you feedback on them. - RTO 1 year CPE sooner as needed. Consent Patient was informed and verbally consented to the use of an ambient scribe for clinic note documentation during this visit. An additional 30 minutes was spent addressing the problem(s) noted at todays visit. This includes time spent before the visit reviewing the chart, time spent during the visit, and time spent after the visit on documentation reviewing laboratory results, diagnostic imaging, medications, performing a medically necessary evaluation, counseling on diagnoses, care coordination, ordering appropriate tests, ordering appropriate medications, review of tests performed by other providers, reporting test results with the patient, communication with other healthcare providers. [facility] Medical History (Updated 10/29/25 @ 11:44 by Rupinder Ochoa, [facility]) Adams's palsy Depression Hemochromatosis Hypertension Jaw fracture Surgical History (Updated 10/29/25 @ 10:31 by Linda Crews CMA) H/O tooth extraction Surgical history unknown Family History Father Colon cancer Depression Brother Depression Other FH: mental illness Substance abuse Social History Household Members: None Household Members Other:: family lives downstairs Housing: Apartment Are you a primary med care manager to a significant other at home: No Do you presently have visiting nurse or other home services: No Alcohol intake: current Alcohol intake frequency: 3 or more drinks per day Alcohol type: beer and hard liquor Patient Tobacco Use Status: Former Tobacco user Cigarettes Per Day: 3 Years Smoked: 20 e-Cigarette/Vaping Use: Former Use Second Hand Smoke Exposure: No Substance Use Type: Crack/Cocaine service: No Current occupational status: employed 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 1. Little interest or pleasure in doing things: several days 2. Feeling down, depressed, or hopeless: several days 3. Trouble falling or staying asleep, or sleeping too much: several days 4. Feeling tired or having little energy: several days 5. Poor appetite or overeating: several days 6. Feeling bad about yourself - or that you are a failure or have let yourself or your family down: not at all 7. Trouble concentrating on things, such as reading the newspaper or watching television: several days 8. Moving or speaking so slowly that other people could have noticed. Or the opposite - being so fidgety or restless that you have been moving around a lot more than usual: not at all 9. Thoughts that you would be better off or of hurting yourself in some way: not at all Total score: 6 Depression Screening Interpretation: Positive Depression Screening Follow-up: Existing condition and In treatment Depression Screening Done: Yes 55366 - PHQ-9 Billing: Yes Source: Developed by Drs. Sarthak Ceballos, Kiesha Singh, Bennett Armando and colleagues, with an educational roberto from [employer]. Thrive Questionnaire Date Thrive assessed: 06/11/25 I am a: Patient What is your living situation today?: I have a steady place to live Within the past 12 months, did the food you bought not last and you didn't have the money to get more?: Never true Within the past 12 months, did you worry whether your food would run out before you got money to buy more?: Never true Do you have trouble paying for medicines?: No Do you have trouble getting transportation to medical appointments?: No Do you have trouble paying your heating and electricity bill?: No Do you have trouble taking care of your child, family member or friend?: No Do you have trouble with day-to-day activities such as bathing, preparing meals, shopping, managing finances, etc.?: No Are you currently unemployed and looking for a job?: No Are you interested in more education?: Yes Currently or been in a relationship where the following occur: No concerns reported THRIVE Score: 0 AUDIT C Alcohol Use Questionnaire (AUDIT-C) 1. How often do you have a drink containing alcohol?: 4 or more times a week (stopped 3 days ago since discharge) 2. How many drinks containing alcohol do you have on a typical day when you are drinking?: 10 or more (10-15 a day) 3. How often do you have six or more drinks on one occasion?: Daily or almost daily Total Score: 12 Score Reviewed/Action Taken: Yes RUIZ-7 AMB Questionnaire RUIZ-7 Date RUIZ - 7 assessed: 10/29/25 Feeling nervous, anxious, or on edge: 0 = Not at all Not being able to stop or control worryin = Not at all Worrying too much about different things: 0 = Not at all Trouble relaxin = Not at all Being so restless that it is hard to sit still: 0 = Not at all Becoming easily annoyed or irritable: 0 = Not at all Feeling afraid as if something awful might happen: 0 = Not at all Total RUIZ-7 score (0-4 normal; 5-9 mild; 10-14 moderate; 15-21 severe): 0 Source: Developed by Drs. Sarthak Ceballos, Kiesha Singh, Bennett Armando and colleagues, with an educational roberto from [employer]. RUIZ-7 Assessment Billing RUIZ-7 Assessment Tool: RUIZ-7 Assessment 20574 Physical exam (Primary Care) Vital Signs: Last Vital Signs Temp 98.5 F 10/29/25 10:30 Pulse 110 H 10/29/25 10:30 Resp 14 10/29/25 10:30 BP 136/88 10/29/25 10:35 Pulse Ox 96 10/29/25 10:30 Oxygen Delivery Method Room Air 10/29/25 10:30 BMI result Body Mass Index 27.8 Tobacco/Smoking Status: Tobacco use Status Tobacco use date assessed 10/29/25 10/29/25 10:36 Patient Tobacco Use Status Former Tobacco user 10/29/25 10:28 e-Cigarette/Vaping Use Former Use 10/29/25 10:28 PHQ-9: PHQ-9 Score PHQ-9: Total score 6 10/29/25 11:09 Depression Screening Interpretation: Positive Depression Screening Follow-up: Existing condition and In treatment Thrive Assessment: Date of Thrive Assessment Date Thrive assessed 06/11/25 10/29/25 10:28 Currently or been in a relationship where the following occur: No concerns reported Coding Level of Care Code Est Pt Prev Care 40-64y(09954) TCM High MDM <= 14 days Diagnoses Adult general medical exam Z00.00 Moderate episode of recurrent major depressive disorder F33.1 Major depression episode severity: moderate Uncomplicated alcohol dependence F10.20 Substance use status: uncomplicated Transaminitis R74.01 Cirrhosis with alcoholism K70.30 History of colonoscopy Z98.890 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 Family hx of colon cancer Z80.0 Influenza vaccination administered at current visit Z23 Laboratory exam ordered as part of routine general medical examination Z00.00 Hospital discharge follow-up Z51.89 Primary hypertension I10 Hypertension type: primary hypertension Additional Codes RUIZ-7 Assessment Billing - RUIZ-7 Assessment Tool: RUIZ-7 Assessment 17930 ([id number]) PHQ-9 - 33666 - PHQ-9 Billing: Yes ([id number]) Assessment & Plan Assessment & Plan (1) Adult general medical exam: Onset Date: ~10/29/25 Code(s): Z00.00 - Encounter for general adult medical examination without abnormal findings Category: Medical (2) MDD (major depressive disorder), recurrent episode: Comment: National Suicide and Crisis Lifeline: Available 24 hours a day, 7 days a week, 365 days a year Dial 988 with any telephone to speak to someone immediately [facility] [address], [place] [id number] , Walk ins [facility] (Mental / Behavioral health therapist: [address], [place] [id number] [facility]: [address] [place] [address] Open from 10am - 12pm ([facility]) [facility] Crisis Services: [address] [place] [address] Walk in hours from 10am - 12pm Behavioral health Network: [address] [place] [address] [address] [place] [address] Saturday through Saturday 8am - 8pm Saturday and Saturday 9am - 5pm Crisis Hotlines Suicide prevention, domestic violence, and other crisis hotlines for youth, young adults, and their friends and families. [facility]: [facility] Safeline helps youth who have run away, are thinking about running away, or who already ran away but are ready to come home. Parents and guardians can also contact the hotline if they are worried about their child running away or if their child has already left home. The hotline is available 24 hours a day, seven days a week. Youth, parents, and guardians can also use the online chat feature on the [facility]'s website to ask for help and get support, or can send a text to [facility]. [facility] National Suicide Prevention Lifeline: The [place] Suicide Prevention Lifeline is a network of local crisis centers that are available 27/05 to provide support for youth and adults who are in any kind of emotional crisis. In addition to the main hotline number listed above, there are several other numbers to call depending on your needs: Gambian Language: Deaf and Hard of [phone] Veterans: Disaster Distress: Anyone can also use their online chat feature on their website. [place] Suicide Prevention Lifeline [facility] Helpline: The [facility] Helpline is available to anyone in [place] who is need of emotional support. Anyone can call or text the helpline to receive help from specially trained volunteers. [place] high school and college students can also get online support through the IMHear_ program. For high school students, volunteers ages 15-18 are available Saturday- from 6-9PM. For college students, IMHear_ is available Saturday-Saturday from 5-9PM. The Seth Project - The Seth Project is a 24/7 crisis intervention and suicide prevention hotline for LGBTQ youth. Youth can also text Seth to for support, or use the online chat feature on the Seth Project's website. [employer] is available Saturday-Saturday between 3-10PM. TrevorChat is available seven days a week between 3-10PM. SafeLink: SafeLink is for anyone who is being affected by domestic violence or dating violence. Volunteers at [employer] speak Polish and Gambian, and [employer] also has a service that can provide translation in more than 130 languages. TTY: Code(s): F33.9 - Major depressive disorder, recurrent, unspecified Category: Medical Qualifiers: Major depression episode severity: moderate Qualified Code(s): F33.1 - Major depressive disorder, recurrent, moderate (3) EtOH dependence: Comment: He will regularly drink 20-30 shots whiskeys a week. Code(s): F10.20 - Alcohol dependence, uncomplicated Category: Medical Qualifiers: Substance use status: uncomplicated Qualified Code(s): F10.20 - Alcohol dependence, uncomplicated (4) Transaminitis: Comment: Baseline Laboratory Tests 03/31/2405/ 15:0304:1213:38 WBC 8.2 Hgb 16.4 Hct 47.0 MCV 98.1 H MCH 34.2 H Plt Count 181 Estimated GFR > 60 Ferritin 1295 H Total Bilirubin 0.8 AST 79 H ALT 105 H Alkaline Phosphatase 90 TSH 2.19 Hepatitis A IgM Ab Nonreactive Hep Bs Antigen Negative Hep Bs Antibody REACTIVE Hep B Core Total Ab Nonreactive Hepatitis C Ab (EIA) Nonreactive US ABD WITH ELASTOGRAPHY 04/29/24 (F-2) 07/01/24 13:24 Liver GGT 49 Liver Total Bilirubin 0.6 Liver Fibrosis Stage F0-F1 Ammonia 29 Alpha Fetoprotein 3.5 Liver GGT 49 Liver Total Bilirubin 0.6 Liver Fibrosis Stage F0-F1 Ammonia 29 Alpha Fetoprotein 3.5 07/01/24 PEGGY Screen NEGATIVE Anti-Mitochondrial Ab NEGATIVE Anti-Smooth Muscle Ab <20 PEth 16:0/18.1 (POPEth) 359 (H) PEth 16:0/18.2 (PLPEth) 281 (H) HIV 1&2 Ab/P24 Ag 4thGn Nonreactive ENTERED: 07/01/24-1312 ORDERED: HemoDNA Test Result Flag Reference DNA Anal. Hemo See Below RESULT: POSITIVE FOR ONE HFE GENE PATHOGENIC VARIANT: H63D (HETEROZYGOTE) US ABD WITH ELASTOGRAPHY 04/29/24 (F-2) FINDINGS: PANCREAS: Normal. The visualized pancreatic head and body are normal in appearance. The remainder of the pancreas is obscured from visualization by the overlying bowel gas. LIVER: The liver is mildly enlarged and shows normal contour and increased echogenicity, with pericholecystic sparing. No focal lesion or intrahepatic biliary duct dilatation. The right lobe measures 17.3 cm in length. The left lobe measures 11.6 cm in length. Portal flow is towards the liver (hepatopetal). Shear wave liver elastography median stiffness is 2.09 m/s (reference: normal median stiffness is 1.3 m/s or less). IQR/median stiffness to assess sampling precision is 0.08 (reference: good quality data set is IQR/median stiffness of 0.15 or less). GALLBLADDER: Normal. The gallbladder is physiologically distended without evidence of stones, sludge, polyps, wall thickening or pericholecystic fluid. COMMON BILE DUCT: Normal in caliber measuring 0.4 cm in diameter. RIGHT KIDNEY: Normal. No hydronephrosis. No renal calculi or focal parenchymal lesions. The kidney measures 10.7 cm in maximum dimension. FREE FLUID: None. US/US abdomen robertson w elastography IMPRESSION: 1. There is generalized increase in hepatic echotexture, consistent with fatty infiltration or hepatocellular disease. Please correlate clinically. Characteristic pericholecystic sparing favors fatty infiltration. No focal hepatic mass or intrahepatic biliary dilatation is seen. 2. There is mild hepatomegaly. 3. Liver elastography: Measurements are suggestive of compensated advanced chronic liver disease but need further test for confirmation. Code(s): R74.01 - Elevation of levels of liver transaminase levels Category: Medical (5) Cirrhosis with alcoholism: Comment: 04/2024 liver elastography US: FINDINGS: PANCREAS: Normal. The visualized pancreatic head and body are normal in appearance. The remainder of the pancreas is obscured from visualization by the overlying bowel gas. LIVER: The liver is mildly enlarged and shows normal contour and increased echogenicity, with pericholecystic sparing. No focal lesion or intrahepatic biliary duct dilatation. The right lobe measures 17.3 cm in length. The left lobe measures 11.6 cm in length. Portal flow is towards the liver (hepatopetal). Shear wave liver elastography median stiffness is 2.09 m/s (reference: normal median stiffness is 1.3 m/s or less). IQR/median stiffness to assess sampling precision is 0.08 (reference: good quality data set is IQR/median stiffness of 0.15 or less). GALLBLADDER: Normal. The gallbladder is physiologically distended without evidence of stones, sludge, polyps, wall thickening or pericholecystic fluid. COMMON BILE DUCT: Normal in caliber measuring 0.4 cm in diameter. RIGHT KIDNEY: Normal. No hydronephrosis. No renal calculi or focal parenchymal lesions. The kidney measures 10.7 cm in maximum dimension. FREE FLUID: None. US/US abdomen robertson w elastography IMPRESSION: 1. There is generalized increase in hepatic echotexture, consistent with fatty infiltration or hepatocellular disease. Please correlate clinically. Characteristic pericholecystic sparing favors fatty infiltration. No focal hepatic mass or intrahepatic biliary dilatation is seen. 2. There is mild hepatomegaly. 3. 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 Code(s): E83.110 - Hereditary hemochromatosis Category: Medical (8) Family hx of colon cancer: Code(s): Z80.0 - Family history of malignant neoplasm of digestive organs Category: Medical (9) Influenza vaccination administered at current visit: Onset Date: ~10/29/25 Code(s): Z23 - Encounter for immunization Category: Medical (10) Laboratory exam ordered as part of routine general medical examination: Code(s): Z00.00 - Encounter for general adult medical examination without abnormal fi ndings Category: Medical (11) Hospital discharge follow-up: Code(s): Z51.89 - Encounter for other specified aftercare (12) Hypertension: Code(s): I10 - Essential (primary) hypertension Category: Medical Qualifiers: Hypertension type: primary hypertension Qualified Code(s): I10 - Essential (primary) hypertension Plan . Orders: Orders Influenza [id number] Immunization Today Z23 - Encounter for immunization XR chest 2V Today R05.9 - Cough, unspecified Prostate Specific Antigen Scr Today Z00.00 - Encounter for general adult medical examination without abnormal findings, Z11.3 - Encounter for screening for infections with a predominantly sexual mode of transmission, Z98.890 - Other specified postprocedural states Lipid Panel Today Z00.00 - Encounter for general adult medical examination without abnormal findings, Z11.3 - Encounter for screening for infections with a predominantly sexual mode of transmission, Z98.890 - Other specified postprocedural states Vitamin B12 and Folate Today Z00.00 - Encounter for general adult medical examination without abnormal findings, Z11.3 - Encounter for screening for infections with a predominantly sexual mode of transmission, Z98.890 - Other specified postprocedural states Vitamin D 25-OH Total Today Z00.00 - Encounter for general adult medical examination without abnormal findings, Z11.3 - Encounter for screening for infections with a predominantly sexual mode of transmission, Z98.890 - Other specified postprocedural states Hemoglobin A1c Today Z00.00 - Encounter for general adult medical examination without abnormal findings, Z11.3 - Encounter for screening for infections with a predominantly sexual mode of transmission, Z98.890 - Other specified postprocedural states CT NG by PCR Urine Today Z00.00 - Encounter for general adult medical examination without abnormal findings, Z11.3 - Encounter for screening for infections with a predominantly sexual mode of transmission, Z98.890 - Other specified postprocedural states Hepatitis A,B,C Profile Today R74.01 - Elevation of levels of liver transaminase levels Complete Blood Count no Diff Today Z00.00 - Encounter for general adult medical examination without abnormal findings, Z11.3 - Encounter for screening for infections with a predominantly sexual mode of transmission, Z98.890 - Other specified postprocedural states Microalbumin, Random (w Creat) Today Z00.00 - Encounter for general adult medical examination without abnormal findings, Z11.3 - Encounter for screening for infections with a predominantly sexual mode of transmission, Z98.890 - Other specified postprocedural states HIV Ab/Ag Today Z00.00 - Encounter for general adult medical examination without abnormal findings, Z11.3 - Encounter for screening for infections with a predominantly sexual mode of transmission, Z98.890 - Other specified postprocedural states Syphilis Screen Today Z00.00 - Encounter for general adult medical examination without abnormal findings, Z11.3 - Encounter for screening for infections with a predominantly sexual mode of transmission, Z98.890 - Other specified postprocedural states Referrals Optometry Referral H53.8 - Other visual disturbances Nurse Navigator Referral F10.20 - Alcohol dependence, uncomplicated, F33.1 - Major depressive disorder, recurrent, moderate, F41.1 - Generalized anxiety disorder Medications: New Fluarix (PF) (flu vac ts (6mos up)-PF) 0.5 mL IM ONCE 0.5 mL 0RF NS Z23 - Encounter for immunization pantoprazole 40 mg PO DAILY 90 tabs 0RF Discontinued naltrexone take half tab daily for 3 days, then increase to one tab daily Discontinued Reason: Patient no longer taking 50 mg PO DAILY 90 tabs 0RF
[2025-10-29 10:30] VITALS: BP 132/94; PULSE 110; RESP 14; TEMP 36.9; O2SAT 96; BMI 27.8
[2025-10-29 10:35] VITALS: BP 136/88; PULSE 95
== END 2025-10-29 11:18 | disposition home or self-care (01) ==
LOC: HO.HMCFM 10:19
PROVIDERS: PCP Nurse Practitioner Family; Visit Provider Nurse Practitioner Family
DX: Z00.00 Encounter for general adult medical examination without abnormal findings (principal); F33.1 Major depressive disorder, recurrent, moderate; F10.20 Alcohol dependence, uncomplicated; K70.30 Alcoholic cirrhosis of liver without ascites; Z98.890 Other specified postprocedural states; E83.110 Hereditary hemochromatosis; I10 Essential (primary) hypertension; Z80.0 Family history of malignant neoplasm of digestive organs